=== PATIENT | female | born 1935 | race Caucasian/White ===

== ENCOUNTER 2016-08-23 11:41 | Inpatient (IN) | payer MEDICARE, MEDICAID ==
--- NOTE | 2016-08-23 12:21 | ER Document Report ---
ED Medical Screen (RME) - General Stated Complaint: SHORTNESS OF BREATH Notes: was dx with PNA 14 days ago return today c/o SOB and productive cough, admits to hot flashes and chills with sweating COPD on 2 L continuous kindey ca on chemo HD Tuesday, and Tuesday TRAVEL OUTSIDE OF THE [place] IN LAST 30 DAYS: No - Related Data Allergies/Adverse Reactions: morphine Allergy (Intermediate, Verified 08/23/16 12:19) Abnormal behavior Iodinated Contrast Media - Oral and [IV Dye, Iodine Containing] Allergy ( Verified 08/23/16 12:19) iodine [Iodine] Allergy (Verified 08/23/16 12:19) Past Medical History - Past Medical History Cardiac Medical History: Reports: Hx Atrial Fibrillation, Hx Congestive Heart Failure, Hx Heart Attack, Hx Hypercholesterolemia, Hx Hypertension Denies: Hx Coronary Artery Disease Pulmonary Medical History: Reports: Hx Asthma, Hx COPD - O2 use 2 LNC Denies: Hx Bronchitis, Hx Pneumonia Neurological Medical History: Denies: Hx Cerebrovascular Accident, Hx Seizures Endocrine Medical History: Reports: Hx Diabetes Mellitus Type 2 Renal/ Medical History: Reports: Hx End Stage Renal Disease, Hx Renal Insufficiency Musculoskeltal Medical History: Reports Hx Arthritis Psychiatric Medical History: Denies: Hx Depression Past Surgical History: Reports: Hx Cardiac Surgery - pacemaker, Hx Hysterectomy , Hx Pacemaker - Immunizations Hx Diphtheria, Pertussis, Tetanus Vaccination: Yes Physical Exam - Vital signs Vitals: Temp Pulse Resp BP Pulse Ox 98.5 F 98 24 H 149/50 H 94 08/23/16 12:10 08/23/16 12:10 08/23/16 12:10 08/23/16 12:10 08/23/16 12:10 Course - Vital Signs Vital signs: Temp Pulse Resp BP Pulse Ox 98.5 F 98 24 H 149/50 H 94 08/23/16 12:10 08/23/16 12:10 08/23/16 12:10 08/23/16 12:10 08/23/16 12:10
[2016-08-23] MEDS ORDERED: IPRATROPIUM BROMIDE 0.02% NEB 0.5 MG/2.5 ML AMPUL NEB PRN (12:23)
[2016-08-23] MEDS ORDERED: IPRATROPIUM/ALBUTEROL 0.5-2.5 MG/3 ML AMPUL NEB ONE ×3 (13:59)
[2016-08-23] MEDS ORDERED: METHYLPREDNISOLONE INJ 125 MG/2 ML SDV IV ONE (13:59)
[2016-08-23] MEDS ORDERED: LEVOFLOXACIN 750 MG/D5W RTU 150 ML IV ONE (13:59)
--- NOTE | 2016-08-23 13:59 | ER Document Report ---
ED General - General Chief Complaint: Congestion Stated Complaint: SHORTNESS OF BREATH Mode of Arrival: Ambulatory Information source: Patient Notes: 81 yr ild female with hx of copd , diagnosed with pneumonia 2 weeks ago on doxy presents with worsening sob, produtive coough and difficult ambulating TRAVEL OUTSIDE OF THE [place] IN LAST 30 DAYS: No - HPI Onset: Other - 2 week duration Onset/Duration: Persistent Quality of pain: No pain Severity: Mild Pain Level: 1 Associated symptoms: Productive cough, Fever, Shortness of breath Exacerbated by: Denies Relieved by: Denies Similar symptoms previously: Yes Recently seen / treated by doctor: Yes - Related Data Allergies/Adverse Reactions: morphine Allergy (Intermediate, Verified 08/23/16 12:19) Abnormal behavior Iodinated Contrast Media - Oral and [IV Dye, Iodine Containing] Allergy ( Verified 08/23/16 12:19) iodine [Iodine] Allergy (Verified 08/23/16 12:19) Past Medical History - Social History Smoking Status: Unknown if Ever Smoked Cigarette use (# per day): No Chew tobacco use (# tins/day): No Smoking Education Provided: No Frequency of alcohol use: None Drug Abuse: None Family History: Reviewed & Not Pertinent Patient has suicidal ideation: No Patient has homicidal ideation: No - Past Medical History Cardiac Medical History: Reports: Hx Atrial Fibrillation, Hx Congestive Heart Failure, Hx Heart Attack, Hx Hypercholesterolemia, Hx Hypertension Denies: Hx Coronary Artery Disease Pulmonary Medical History: Reports: Hx Asthma, Hx COPD - O2 use 2 LNC Denies: Hx Bronchitis, Hx Pneumonia Neurological Medical History: Denies: Hx Cerebrovascular Accident, Hx Seizures Endocrine Medical History: Reports: Hx Diabetes Mellitus Type 2 Renal/ Medical History: Reports: Hx End Stage Renal Disease, Hx Renal Insufficiency. Denies: Hx Peritoneal Dialysis Musculoskeltal Medical History: Reports Hx Arthritis Psychiatric Medical History: Denies: Hx Depression Past Surgical History: Reports: Hx Cardiac Surgery - pacemaker, Hx Hysterectomy , Hx Pacemaker - Immunizations Hx Diphtheria, Pertussis, Tetanus Vaccination: Yes Hx Pneumococcal Vaccination: 08/08/11 Review of Systems - Review of Systems Notes: REVIEW OF SYSTEMS: CONSTITUTIONAL : Denies fever, chills, or sweats. Denies recent illness. EENT: Denies eye, ear, throat, or mouth pain or symptoms. Denies nasal or sinus congestion or discharge. Denies throat, tongue, or mouth swelling or difficulty swallowing. CARDIOVASCULAR: Denies chest pain. Denies palpitations or racing or irregular heart beat. Denies ankle edema. RESPIRATORY: Admits to shortness of breath only breathing GASTROINTESTINAL: Denies abdominal pain or distention. Denies nausea, vomiting , or diarrhea. Denies blood in vomitus, stools, or per rectum. Denies black, tarry stools. Denies constipation. GENITOURINARY: Denies difficulty urinating, painful urination, burning, frequency, blood in urine, or discharge. FEMALE GENITOURINARY: Denies vaginal bleeding, heavy or abnormal periods, irregular periods. Denies vaginal discharge or odor. MUSCULOSKELETAL: Denies back or neck pain or stiffness. Denies joint pain or swelling. SKIN: Denies rash, lesions or sores. HEMATOLOGIC : Denies easy bruising or bleeding. LYMPHATIC: Denies swollen, enlarged glands. NEUROLOGICAL: Denies confusion or altered mental status. Denies passing out or loss of consciousness. Denies dizziness or lightheadedness. Denies headache. Denies weakness or paralysis or loss of use of either side. Denies problems with gait or speech. Denies sensory loss, numbness, or tingling. Denies seizures. PSYCHIATRIC: Denies anxiety or stress. Denies depression, suicidal ideation, or homicidal ideation. ALL OTHER SYSTEMS REVIEWED AND NEGATIVE. Dictation was performed using [employer] English voice recognition software PHYSICAL EXAMINATION: GENERAL: Well-appearing, well-nourished and in no acute distress. HEAD: Atraumatic, normocephalic. EYES: Pupils equal round and reactive to light, extraocular movements intact, conjunctiva are normal. ENT: Nares patent, oropharynx clear without exudates. Moist mucous membranes. NECK: Normal range of motion, supple without lymphadenopathy LUNGS: Coarse wheezing all throughout rhonchorous HEART: Regular rate and rhythm without murmurs ABDOMEN: Soft, nontender, nondistended abdomen. No guarding, no rebound. No masses appreciated. Female : deferred Musculoskeletal: Normal range of motion, no pitting or edema. No cyanosis. NEUROLOGICAL: Cranial nerves grossly intact. Normal speech, normal gait. Normal sensory, motor exams PSYCH: Normal mood, normal affect. SKIN: Warm, Dry, normal turgor, no rashes or lesions noted. Physical Exam - Vital signs Vitals: Temp Pulse Resp BP Pulse Ox 98.5 F 98 24 H 149/50 H 94 08/23/16 12:10 08/23/16 12:10 08/23/16 12:10 08/23/16 12:10 08/23/16 12:10 Course - Re-evaluation Re-evalutation: 08/23/16 13:58 Lab work imaging are pending, patient will be placed on monitor, I expect admission given extensiveness of her breathing 08/23/16 16:07 Chest x-ray is consistent with COPD exacerbation, patient will be admitted to hospital service due to hypoxemia respiratory distress - Vital Signs Vital signs: Temp Pulse Resp BP Pulse Ox 98.5 F 98 25 H 146/49 H 100 08/23/16 12:10 08/23/16 12:10 08/23/16 15:01 08/23/16 15:00 08/23/16 15:01 - Laboratory Result Diagrams: 08/23/16 13:45 08/23/16 13:45 Laboratory results interpreted by me: 08/23/16 08/23/16 13:45 13:45 RBC 3.68 L Hgb 10.8 L Hct 35.1 L MCHC 30.8 L RDW 14.9 H Seg Neutrophils % 79.3 H Lymphocytes % 10.1 L BUN 24 H Creatinine 1.98 H Est GFR ( Amer) 29 L Est GFR (Non-Af Amer) 24 L Creatine Kinase < 20 L Total Protein 5.8 L - Diagnostic Test Radiology reviewed: Image reviewed, Reports reviewed Discharge - Discharge Clinical Impression: COPD with exacerbation, Hypoxemia Condition: Stable Disposition: ADMITTED OBSERVATION Admitting Provider: Hospitalist Unit Admitted: Telemetry
[2016-08-23 14:11] LABS: VENOUS BLOOD BASE EXCESS 3.1 mmol/L; VENOUS BLOOD HCO3 30.1 mmol/L (20-32); VENOUS BLOOD PCO2 54.9 mmHg (35-63); VENOUS BLOOD PH 7.36 (7.30-7.42)
[2016-08-23 14:12] LABS: ABSOLUTE LYMPHOCYTES (AUTO) 0.6 10^3/uL (0.5-4.7); ABSOLUTE MONOCYTES (AUTO) 0.6 10^3/uL (0.1-1.4); BASOPHILS % (AUTO) 0.4 % (0-2); EOSINOPHILS % (AUTO) 0.3 % (0-6); HEMATOCRIT 35.1 % (36.0-47.0); HEMOGLOBIN 10.8 g/dL (12.0-15.5); HGB HCT DIFFERENCE -2.7; LYMPHOCYTES % (AUTO) 10.1 % (13-45); MEAN CORPUSCULAR HEMOGLOBIN 29.5 pg (27.0-33.4); MEAN CORPUSCULAR HGB CONC 30.8 g/dL (32.0-36.0); MEAN CORPUSCULAR VOLUME 96 fl (80-97); MONOCYTES % (AUTO) 9.9 % (3-13); RED BLOOD COUNT 3.68 10^6/uL (3.72-5.28); RED CELL DISTRIBUTION WIDTH 14.9 % (11.5-14.0); SEGMENTED NEUTROPHILS % (AUTO) 79.3 % (42-78); WHITE BLOOD COUNT 6.3 10^3/uL (4.0-10.5)
[2016-08-23 14:24] LABS: ALANINE AMINOTRANSFERASE 26 U/L (9-52); ALBUMIN 3.5 g/dL (3.5-5.0); ALKALINE PHOSPHATASE 108 U/L (38-126); ANION GAP 13 (5-19); ASPARTATE AMINO TRANSFERASE 30 U/L (14-36); BILIRUBIN,TOTAL 0.4 mg/dL (0.2-1.3); BLOOD UREA NITROGEN 24 mg/dL (7-20); CALCIUM 9.2 mg/dL (8.4-10.2); CARBON DIOXIDE 27 mmol/L (22-30); CHLORIDE 100 mmol/L (98-107); CREATININE RESULT 1.98 mg/dL (0.52-1.25); GLUCOSE 103 mg/dL (75-110); POTASSIUM 4.3 mmol/L (3.6-5.0); SODIUM 140.1 mmol/L (137-145); TOTAL PROTEIN 5.8 g/dL (6.3-8.2)
[2016-08-23 14:27] LABS: CREATINE KINASE < 20 U/L (30-135)
[2016-08-23 14:36] LABS: TROPONIN I 0.012 ng/mL
[2016-08-23 14:37] LABS: CREATINE KINASE MB < 0.22 ng/mL (<4.55)
[2016-08-23] MEDS ORDERED: ACETAMINOPHEN 325 MG TABLET PO PRN (16:39)
[2016-08-23] MEDS ORDERED: LEVALBUTEROL HCL NEB 1.25 MG/3 ML AMPUL NEB PRN (16:39)
[2016-08-23] MEDS ORDERED: ONDANSETRON HCL INJ/PF 4 MG/2 ML SDV IV PRN (16:48)
--- NOTE | 2016-08-23 17:11 | PDOC H&P ---
History of Present Illness Admission Date/PCP: BILL TRACY MD Patient complains of: Shortness of breath and wheezing History of Present Illness: KATHERINE RAWLS is a 81 year old female, with COPD, on home oxygen at 2 L nasal cannula, diabetes mellitus and hypertension, renal cell carcinoma, last chemotherapy was 3 days ago came to the emergency room because of one day duration of shortness of breath and wheezing with associated cough with slightly greenish phlegm, runny nose, watery eyes, and sneezing. The patient completed 10 days of oral antibiotic for a diagnosis of pneumonia 2 weeks ago. She has shortness of breath at that time but is tolerable. She likewise had some fever. Her symptoms improve and resolve after antibiotic intake and completed it 3-4 days ago. Today the above symptoms recur. She was given steroids and nebulizers in the emergency room and her breathing improved however she desaturation to 86 on ambulation even wearing oxygen at 2 L nasal cannula according to the emergency room physician. The patient was then referred for admission. , Past Medical History Past Medical History: Medication reconciliation pending verification from the patient's pharmacist. Cardiac Medical History: Reports: Atrial Fibrillation, Congestive Heart Failure , Myocardial Infarction, Hyperlipidema, Hypertension Denies: Coronary Artery Disease Pulmonary Medical History: Reports: Asthma, Chronic Obstructive Pulmonary Disease (COPD) - O2 use 2 LNC Denies: Bronchitis, Pneumonia Neurological Medical History: Denies: Seizures Endocrine Medical History: Reports: Diabetes Mellitus Type 2 Renal/ Medical History: Reports: End Stage Renal Disease - On hemodialysis on Tuesday and Tuesday Musculoskeltal Medical History: Reports: Arthritis Psychiatric Medical History: Denies: Depression Hematology: Denies: Anemia Past Surgical History Past Surgical History: Reports: Hysterectomy, Pacemaker, Vascular Surgery - AV grafting Social History Information Source: Patient Smoking Status: Former Smoker Frequency of Alcohol Use: None Hx Recreational Drug Use: No Drugs: None Hx Prescription Drug Abuse: No Family History Family History: DM, Hypertension Parental Family History Reviewed: Yes Children Family History Reviewed: Yes Sibling(s) Family History Reviewed.: Yes Medication/Allergy Home Medications: Esomeprazole Magnesium [Nexium] 40 mg PO DAILY 01/06/14 Ropinirole HCl 1 mg PO DAILY 01/06/14 Melatonin/Pyridoxine HCl (B6) [Melatonin 1 mg Tablet] 1 each PO QHS 08/10/15 Nitroglycerin [Nitrostat] 1 tab SL Q5MP PRN 02/14/16 Atorvastatin Calcium [Lipitor 40 mg Tablet] 40 mg PO DAILY #30 tablet 03/01/16 Diltiazem HCl [Cardizem Cd 180 mg Capsule] 180 mg PO DAILY #30 capsule.cr Fluticasone/Salmeterol [Advair 250-50 Diskus 14 Dose/Diskus] 1 inh IH Q12 #1 inhaler 03/01/16 Folic Acid/Vitamin B Comp W-C [Nephrocaps Multiple Vitamin Capsule] 1 cap PO ACSUPPER #30 capsule 03/01/16 Ipratropium/Albuterol Sulfate [Combivent Respimat 4 gm Mdi] 1 puff IH Q6HP PRN # 1 aer.w.adap 03/01/16 Latanoprost [Xalatan 0.005% Oph Soln 2.5 ml] 1 drop OU QHS #1 bottle 03/01/16 Montelukast Sodium [Singulair 10 mg Tablet] 10 mg PO DAILY #30 tablet 03/01/16 Levothyroxine Sodium [Synthroid 0.025 mg Tablet] 50 mcg PO DAILY 03/23/16 Metoprolol Tartrate [Lopressor 50 mg Tablet] 1 tab PO DAILY 03/23/16 Sennosides [Senna] 1 tab PO QHS 03/23/16 Oxycodone HCl/Acetaminophen [Percocet 5-325 mg Tablet] 1 tab PO ASDIR PRN #15 tablet 03/29/16 Furosemide [Lasix 80 mg Tablet] 80 mg PO BID 06/07/16 Potassium Bicarbonate/Cit AC [Potassium 25 Meq Tab Eff] 20 meq PO DAILY Allergies/Adverse Reactions: morphine Allergy (Intermediate, Verified 08/23/16 12:19) Abnormal behavior Iodinated Contrast Media - Oral and [IV Dye, Iodine Containing] Allergy ( Verified 08/23/16 12:19) iodine [Iodine] Allergy (Verified 08/23/16 12:19) Review of Systems Constitutional: PRESENT: weakness - Generalized. ABSENT: chills, fever(s), headache(s), night sweats, weight gain Eyes: ABSENT: visual disturbances Ears: ABSENT: hearing changes Nose, Mouth, and Throat: ABSENT: mouth pain, sore throat, vertigo Cardiovascular: PRESENT: dyspnea on exertion. ABSENT: chest pain, edema, orthropnea, palpitations Respiratory: PRESENT: cough, dyspnea, sputum - Light green. ABSENT: hemoptysis Gastrointestinal: ABSENT: abdominal pain, constipation, diarrhea, hematemesis, hematochezia, melena, nausea, vomiting Genitourinary: PRESENT: other - Still brings out scanty urine. ABSENT: dysuria , hematuria Musculoskeletal: ABSENT: back pain, joint swelling Integumentary: ABSENT: pruritus, rash, wounds Neurological: ABSENT: abnormal gait, abnormal speech, confusion, dizziness, focal weakness, syncope Psychiatric: ABSENT: anxiety, depression, homidical ideation, suicidal ideation Endocrine: ABSENT: cold intolerance, heat intolerance, polydipsia, polyuria Hematologic/Lymphatic: ABSENT: easy bleeding, easy bruising Physical Exam Vital Signs: Temp Pulse Resp BP Pulse Ox 98.5 F 98 25 H 146/49 H 100 08/23/16 12:10 08/23/16 12:10 08/23/16 15:01 08/23/16 15:00 08/23/16 15:01 Intake & Output 08/22/16 08/23/16 08/24/16 06:59 06:59 06:59 Weight 78 kg General appearance: PRESENT: no acute distress, cooperative, obese Head exam: PRESENT: atraumatic, normocephalic Eye exam: PRESENT: conjunctiva pale, EOMI, PERRLA - But sluggish Ear exam: PRESENT: normal external ear exam. ABSENT: drainage Mouth exam: PRESENT: moist, neck supple, tongue midline Throat exam: PRESENT: other - No thrush. ABSENT: post pharyngeal erythema, tonsillar erythema, tonsillar exudate Neck exam: ABSENT: carotid bruit, JVD, lymphadenopathy, thyromegaly Respiratory exam: PRESENT: rhonchi - Scattered bilateral, wheezes - Mild expiratory bilateral. ABSENT: rales Cardiovascular exam: PRESENT: RRR, +S1, +S2. ABSENT: diastolic murmur, rubs, systolic murmur Pulses: PRESENT: normal dorsalis pedis pul Vascular exam: PRESENT: normal capillary refill GI/Abdominal exam: PRESENT: normal bowel sounds, soft. ABSENT: distended, guarding, mass, organolmegaly, rebound, tenderness Rectal exam: PRESENT: deferred Extremities exam: PRESENT: full ROM. ABSENT: calf tenderness, clubbing, pedal edema Neurological exam: PRESENT: alert, awake, oriented to person, oriented to place , oriented to time, oriented to situation Psychiatric exam: PRESENT: appropriate affect, normal mood. ABSENT: homicidal ideation, suicidal ideation Skin exam: PRESENT: dry, intact, warm. ABSENT: cyanosis Results Laboratory Results: 08/23/16 13:45 08/23/16 13:45 08/23/16 08/23/16 08/23/16 13:45 13:45 13:45 WBC 6.3 RBC 3.68 L Hgb 10.8 L Hct 35.1 L MCV 96 MCH 29.5 MCHC 30.8 L RDW 14.9 H Plt Count 208 Seg Neutrophils % 79.3 H Lymphocytes % 10.1 L Monocytes % 9.9 Eosinophils % 0.3 Basophils % 0.4 Absolute Neutrophils 5.0 Absolute Lymphocytes 0.6 Absolute Monocytes 0.6 Absolute Eosinophils 0.0 Absolute Basophils 0.0 VBG pH 7.36 VBG pCO2 54.9 VBG HCO3 30.1 VBG Base Excess 3.1 Sodium 140.1 Potassium 4.3 Chloride 100 Carbon Dioxide 27 Anion Gap 13 BUN 24 H Creatinine 1.98 H Est GFR ( Amer) 29 L Est GFR (Non-Af Amer) 24 L Glucose 103 Calcium 9.2 Total Bilirubin 0.4 AST 30 ALT 26 Alkaline Phosphatase 108 Total Protein 5.8 L Albumin 3.5 08/23/16 08/23/16 13:45 13:45 Creatine Kinase < 20 L CK-MB (CK-2) < 0.22 Troponin I 0.012 Impressions: Chest X-Ray 08/23/16 12:21 IMPRESSION: 1. Stable 2 cm left lower lobe mass. 2. No evidence of acute pneumonia. 3. Chronic parenchymal changes as described Assessment & Plan - Diagnosis (1) COPD with exacerbation Is this a current diagnosis for this admission?: Yes (2) Chronic hypoxemic respiratory failure Is this a current diagnosis for this admission?: Yes (3) Coronary artery disease Qualifiers: Coronary Disease-Associated Artery/Lesion type: [place] artery [place] vs. transplanted heart: [place] heart Associated angina: without angina Qualified Code(s): I25.10 - Atherosclerotic heart disease of [place] coronary artery without angina pectoris Is this a current diagnosis for this admission?: Yes (4) ESRD on hemodialysis Is this a current diagnosis for this admission?: Yes (5) Hypothyroidism Qualifiers: Hypothyroidism type: unspecified Qualified Code(s): E03.9 - Hypothyroidism, unspecified Is this a current diagnosis for this admission?: Yes (6) Renal cell carcinoma Qualifiers: Laterality: unspecified laterality Qualified Code(s): C64.9 - Malignant neoplasm of unspecified kidney, except renal pelvis Is this a current diagnosis for this admission?: Yes (7) Essential hypertension Is this a current diagnosis for this admission?: Yes (8) Diabetes mellitus Qualifiers: Diabetes mellitus type: type 2 Diabetes mellitus complication status: with unspecified complications Diabetes mellitus halfway insulin use: without halfway use Qualified Code(s): E11.8 - Type 2 diabetes mellitus with unspecified complications Is this a current diagnosis for this admission?: Yes (9) Anemia of chronic disease Is this a current diagnosis for this admission?: Yes (10) History of atrial fibrillation Is this a current diagnosis for this admission?: Yes - Time Time Spent: 50 to 70 Minutes - Inpatient Certification Based on my medical assessment, after consideration of the patient's comorbidities, presenting symptoms, or acuity I expect that the services needed warrant INPATIENT care.: Yes I certify that my determination is in accordance with my understanding of Medicare's requirements for reasonable and necessary INPATIENT services [42 CFR 412.3e].: Yes Medical Necessity: Significant Comorbidiites Make Outpatient Treatment Too Risky , Need Close Monitoring Due to Risk of Patient Decompensation, Need For Continuous Telemetry Monitoring, Risk of Complication if Not Cared For in Hospital Post Hospital Care: D/C [employer] Administrator Documentation - Plan Summary Plan Summary: The patient will be admitted to telemetry. We will continue supplemental oxygen. Begin intravenous steroids and [id number] nebulizers. I will gently hydrate the patient with normal saline for 2 L. We will culture the sputum. Obtain CT scan of the chest to check for any infiltrates. We will consult nephrology for hemodialysis. DVT prophylaxis with heparin will be placed. Further testing depends on the initial evaluation as outlined above.
--- NOTE | 2016-08-23 18:06 | EKG REPORT ---
SEVERITY:- ABNORMAL ECG - SINUS OR ECTOPIC ATRIAL RHYTHM NONSPECIFIC INTRAVENTRICULAR CONDUCTION DELAY : Confirmed by: Alejandro Storey MD 23-Aug-2016 18:05:22
[2016-08-23] MEDS: METHYLPREDNISOLONE INJ 125 MG/2 ML SDV IV SCH (18:39)
[2016-08-23] MEDS: LEVALBUTEROL HCL NEB 1.25 MG/3 ML AMPUL NEB SCH ×2 (21:34→23:49)
[2016-08-23] MEDS: IPRATROPIUM BROMIDE 0.02% NEB 0.5 MG/2.5 ML AMPUL NEB SCH ×2 (21:35→23:48)
[2016-08-23] MEDS ORDERED: ROPINIROLE HCL 1 MG TABLET PO ONE (22:45)
[2016-08-23] MEDS ORDERED: ROPINIROLE HCL 1 MG TABLET ONE (23:01)
[2016-08-23] MEDS: ATORVASTATIN CALCIUM 40 MG TABLET PO SCH (23:18)
[2016-08-23] MEDS: OXYCODONE HCL IR 5 MG TABLET PO PRN (23:18)
[2016-08-23] MEDS: HEPARIN SOD (PORCINE) 5,000 UNIT/ML 1 ML SYRINGE SUBCUT SCH (23:19)
[2016-08-23] MEDS: LATANOPROST 0.005% OPH SOLN 2.5 ML OU SCH (23:19)
[2016-08-23] MEDS: DOCUSATE SODIUM 100 MG CAPSULE PO SCH (23:19)
[2016-08-24] MEDS: METHYLPREDNISOLONE INJ 125 MG/2 ML SDV IV SCH ×4 (02:40→17:55)
[2016-08-24] MEDS: IPRATROPIUM BROMIDE 0.02% NEB 0.5 MG/2.5 ML AMPUL NEB SCH ×6 (03:56→23:21)
[2016-08-24] MEDS: LEVALBUTEROL HCL NEB 1.25 MG/3 ML AMPUL NEB SCH ×6 (03:56→23:22)
[2016-08-24] MEDS: LANSOPRAZOLE 30 MG TAB.RAP.DR PO SCH (05:52)
[2016-08-24] MEDS: HEPARIN SOD (PORCINE) 5,000 UNIT/ML 1 ML SYRINGE SUBCUT SCH ×3 (05:52→22:06)
[2016-08-24] MEDS: LEVOTHYROXINE SODIUM 0.05 MG TABLET PO SCH (05:52)
[2016-08-24] MEDS: NORMAL SALINE 1000 ML 1,000 ML IV PRN (05:54)
[2016-08-24 06:54] LABS: ABSOLUTE LYMPHOCYTES (AUTO) 0.3 10^3/uL (0.5-4.7); ABSOLUTE MONOCYTES (AUTO) 0.2 10^3/uL (0.1-1.4); ABSOLUTE NEUT (AUTO) 3.6 10^3/uL (1.7-8.2); BASOPHILS % (AUTO) 0.1 % (0-2); HEMATOCRIT 32.4 % (36.0-47.0); HEMOGLOBIN 10.2 g/dL (12.0-15.5); HGB HCT DIFFERENCE -1.8; LYMPHOCYTES % (AUTO) 8.3 % (13-45); MEAN CORPUSCULAR HGB CONC 31.6 g/dL (32.0-36.0); MEAN CORPUSCULAR VOLUME 95 fl (80-97); RED BLOOD COUNT 3.41 10^6/uL (3.72-5.28); SEGMENTED NEUTROPHILS % (AUTO) 87.6 % (42-78); WHITE BLOOD COUNT 4.1 10^3/uL (4.0-10.5)
[2016-08-24] MEDS: OXYCODONE HCL IR 5 MG TABLET PO PRN ×3 (07:01→22:04)
[2016-08-24 07:13] LABS: ANION GAP 12 (5-19); BLOOD UREA NITROGEN 31 mg/dL (7-20); CALCIUM 9.6 mg/dL (8.4-10.2); CARBON DIOXIDE 27 mmol/L (22-30); CHLORIDE 100 mmol/L (98-107); CREATININE RESULT 2.16 mg/dL (0.52-1.25); GLUCOSE 148 mg/dL (75-110); POTASSIUM 4.4 mmol/L (3.6-5.0); SODIUM 139.2 mmol/L (137-145)
[2016-08-24] MEDS: DILTIAZEM HCL 180 MG CAPSULE.CR PO SCH (09:31)
[2016-08-24] MEDS: DOCUSATE SODIUM 100 MG CAPSULE PO SCH ×2 (09:32→17:55)
[2016-08-24] MEDS ORDERED: ROPINIROLE HCL 1 MG TABLET PO SCH ×3 (10:00→18:00)
[2016-08-24] MEDS ORDERED: METOPROLOL TARTRATE 50 MG TABLET PO SCH (10:00)
--- NOTE | 2016-08-24 12:25 | Physician Advisory Note ---
Physician Advisor ProgressNote .: Pursuant to the plan for [facility], I have reviewed the medical record for this patient. Physician Advisor Statement: Excellent documentation of Chronic Hypoxemia Resp Failure requiring 2L O2 at baseline. Possible documentation opportunities if attending agrees: 1. "Anemia of Chronic Kidney Dz" 2. "Acute Hypoxemic Respiratory Failure with respiratory distress in ED with hypoxemia on her usual 2L O2" [The hypoxemia on usual O2 level was nicely documented in H&P, just need the associated increased work of breathing/respiratory distress documented by attending as well (if attending agrees it was present) to support this dx. - ED dr documented "I expect admission given extensiveness of her breathing", & "Pt will be admitted to hospital service due to hypoxemia resp distress." But attending must re-state ED provider info for it to "count" for the coding world - regardless of what the practicing physician thinks of that requirement.] 3. ? - "Her difficulty ambulating prior to arrival was due to worsening SOB with ambulation" - or was it due to some other cause such as general debility/ weakness? 4. "chronic ___ CHF" [diastolic?] - ECHO 01/2016 said EF 50-55%, borderline conc LVH, diast fn couldn't e adeq.ly assessed due to Afib. Mild pulm HTN, mild dil LA & RA, mild MR, tr AR/TR, RV hypertrophied. 5. type of Afib - ?"Persistent Afib" vs "Paroxysmal Afib" As always, if concerned about any unstable VS or abnormal labs, please comment on them & note what doing about them, & please document each day the potential clinical problems you are concerned could occur if pt not kept in hospital for tx at this time. 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 diastolic] CHF, ___ type Afib, COPD, chr resp failure requiring 2L O2 at baseline, recent PNA 2 wks before that responded to abx that ended 3-4 days before - presented 1/16 PM to ED w/increasing SOB, congestion, productive cough, difficulty ambulating (+) HR 98, R24, BP 149/50, Hgb 10.8, BUN 24, Cr 1.98. ED gave steroids, nebs, & breathing improved but she still desaturated to 86% sat on her usual 2L O2 with ambulation, & ED dr documented respiratory distress being present. Attending ordered O2, IV steroids, around the clock nebs, gentle IVF hydration ( must be careful given underlying CHF), sputum cx, CT scan to check for infiltrates, & of course nephrology consult for continued HD. Status: This pt has multiple very concerning chronic co-morbidities that put her at much higher risk for decompensation than the typical outpatient, with multi- system organ impairment at baseline & current ongoing chemotherapy for renal cell carcinoma that appears to be metastatic to the lungs. Now she has shown worsening in her oxygenation ability, which can further compromise all her organs, including these very organ systems that are already at a distinct disadvantage - & is even more an issue given her decreased number of red blood cells available to carry that decreased amount of O2 around her body. She is at much higher than usual risk for serious infections given her diabetes & current chemotherapy treatment, and this risk is increased by the necessary steroids for bronchospasm. Attending has ordered sputum culture, just in case of new bacterial infection is developing on top of the COPD exacerbation. Last PM, she had tachypnea as high as 35. She has had continued recurrent tachypnea through this AM (RR 24), & persistent tachycardia above 100 that continues. This AM at 01:26, the nurse documented pt was using accessory muscles to breathe . She is not hemodynamically stable, & she is not clinically safe for d/c, & she is at very high risk for further morbidity & mortality. Tx in inpatient hospital setting medically reasonable & necessary to protect pt' s health, safety, & medical condition. Appropriate for Inpatient status. Thanks for your help with documentation accuracy/specificity improvement! Shanell Alexandre MD [facility] Physician Advisor, Fellow of Hospital Medicine
--- NOTE | 2016-08-24 15:01 | PDOC PROGRESS REPORT ---
Subjective Progress Note for:: 08/24/16 Subjective:: Complains of shortness of breath. Physical Exam Vital Signs: Temp Pulse Resp BP Pulse Ox 98.4 F 86 18 144/43 H 97 08/24/16 10:24 08/24/16 14:00 08/24/16 11:43 08/24/16 10:24 08/24/16 11:43 Intake & Output 08/23/16 08/24/16 08/25/16 06:59 06:59 06:59 Intake Total 20 Balance 20 Weight 75.3 kg General appearance: PRESENT: no acute distress Eye exam: PRESENT: conjunctiva pink Mouth exam: PRESENT: moist, tongue midline Neck exam: ABSENT: carotid bruit, JVD, lymphadenopathy, thyromegaly Respiratory exam: PRESENT: wheezes - Wheezing present in the left hemithorax. GI/Abdominal exam: PRESENT: normal bowel sounds, soft. ABSENT: distended, guarding, mass, organolmegaly, rebound, tenderness Extremities exam: ABSENT: calf tenderness, clubbing, pedal edema Neurological exam: PRESENT: alert, awake, oriented to person, oriented to place , oriented to time Psychiatric exam: PRESENT: appropriate affect Skin exam: PRESENT: dry, intact, warm. ABSENT: cyanosis, rash Results Laboratory Results: 08/24/16 06:40 08/24/16 06:40 08/24/16 08/24/16 06:40 06:40 WBC 4.1 RBC 3.41 L Hgb 10.2 L Hct 32.4 L MCV 95 MCH 30.0 MCHC 31.6 L RDW 15.0 H Plt Count 193 Seg Neutrophils % 87.6 H Lymphocytes % 8.3 L Monocytes % 4.0 Eosinophils % 0.0 Basophils % 0.1 Absolute Neutrophils 3.6 Absolute Lymphocytes 0.3 L Absolute Monocytes 0.2 Absolute Eosinophils 0.0 Absolute Basophils 0.0 Sodium 139.2 Potassium 4.4 Chloride 100 Carbon Dioxide 27 Anion Gap 12 BUN 31 H Creatinine 2.16 H Est GFR ( Amer) 27 L Est GFR (Non-Af Amer) 22 L Glucose 148 H Calcium 9.6 Impressions: Chest CT 08/23/16 00:00 IMPRESSION: The previously described multiple bilateral predominately subcentimeter pulmonary and pleural based nodules are again identified and appear essentially unchanged. No acute consolidations or pleural effusions are identified. Previously described chronic appearing changes are again identified. Other findings as noted above Chest X-Ray 08/23/16 12:21 IMPRESSION: 1. Stable 2 cm left lower lobe mass. 2. No evidence of acute pneumonia. 3. Chronic parenchymal changes as described Assessment & Plan - Diagnosis (1) Chronic hypoxemic respiratory failure Is this a current diagnosis for this admission?: YesPlan: Patient has acute on chronic hypoxic respiratory failure. This is secondary to acute COPD exacerbation. We'll continue with the IV steroids. (2) COPD with exacerbation Is this a current diagnosis for this admission?: YesPlan: Patient has an acute exacerbation of COPD. We'll continue with the IV steroids , nebulizers. (3) Anemia of chronic disease Is this a current diagnosis for this admission?: YesPlan: Patient has anemia of chronic disease most likely secondary to chronic renal failure stage V. (4) Diabetes mellitus Qualifiers: Diabetes mellitus type: type 2 Diabetes mellitus complication status: with unspecified complications Diabetes mellitus intermodal customer service insulin use: without intermodal customer service use Qualified Code(s): E11.8 - Type 2 diabetes mellitus with unspecified complications; Z79.4 - [facility] (current) use of insulin Is this a current diagnosis for this admission?: YesPlan: Blood sugars are under adequate control. (5) Essential hypertension Is this a current diagnosis for this admission?: YesPlan: Continue Lopressor and diltiazem. (6) History of atrial fibrillation Is this a current diagnosis for this admission?: YesPlan: Patient is in a regular rhythm today. (7) Hypothyroidism Qualifiers: Hypothyroidism type: unspecified Qualified Code(s): E03.9 - Hypothyroidism, unspecified Is this a current diagnosis for this admission?: YesPlan: Continue Synthroid (8) Coronary artery disease Qualifiers: Coronary Disease-Associated Artery/Lesion type: [place] artery [place] vs. transplanted heart: [place] heart Associated angina: without angina Qualified Code(s): I25.10 - Atherosclerotic heart disease of [place] coronary artery without angina pectoris Is this a current diagnosis for this admission?: YesPlan: Denies any chest pain. - Time Time Spent with patient: 25-34 minutes - Inpatient Certification Medical Necessity: Need for Nebulizer Therapy and Monitoring of Response
[2016-08-24] MEDS: FOLIC ACID/VITAMIN B COMP W-C CAPSULE PO SCH (15:26)
--- NOTE | 2016-08-24 19:34 | PDOC CONSULTATION ---
Consultation Consult Date: 08/24/16 Attending physician:: RICKIE CRAIG Consult reason:: I was asked by Dr. Craig to see this patient to supervise dialysis while in the hospital. History of Present Illness Admission Date/PCP: 08/23/16 16:39 SREEDHAR NIEVES MD History of Present Illness: KATHERINE RAWLS is a 81 year old female, with COPD, on home oxygen at 2 L nasal cannula, diabetes mellitus and hypertension, metastatic renal cell carcinoma, last chemotherapy was 3 days ago and end-stage renal disease on maintenance hemodialysis came to the emergency room because of one day duration of shortness of breath and wheezing with associated cough with slightly greenish phlegm, runny nose, watery eyes, and sneezing. The patient completed 10 days of oral antibiotic for a diagnosis of pneumonia 2 weeks ago. She has shortness of breath at that time but is tolerable. She likewise had some fever. Her symptoms improve and resolve after antibiotic intake and completed it 3-4 days ago. Today the above symptoms recur. She was given steroids and nebulizers in the emergency room and her breathing improved however she desaturation to 86 on ambulation even wearing oxygen at 2 L nasal cannula according to the emergency room physician. The patient was then referred for admission. Patient has been maintenance hemodialysis since February 2016. She has done well surprisingly despite her conditions. Her usual dialysis days are Tuesdays, and Saturdays. Her last dialysis was last Tuesday. During that night after her on dialysis on Tuesday she started feeling shortness short of breath. Currently she said she feels slightly better but not at baseline yet. She said she is coughing but unable to expectorate any phlegm. She is afebrile. She doesn't have any chest pains, leg swelling, nausea, vomiting, nor abdominal pain. She complains of restless legs and she thinks that the Requip 0.5 mg is not enough since she is usually maintained on 1 mg daily. She tells me that she is making more urine output while she is here in the hospital than usual. Urine output is not quantified. , Past Medical History Cardiac Medical History: Reports: Atrial Fibrillation, Hyperlipidemia, Hypertension-primary, Myocardial Infarction Pulmonary Medical History: Reports: Asthma, Chronic Obstructive Pulmonary Disease (COPD) - O2 use 2 LNC, Pneumonia EENT Medical History: Reports: Other - Glaucoma Endocrine Medical History: Reports: Diabetes Mellitus Type 2, Hypothyroidism Renal/ Medical History: Reports: End Stage Renal Disease - On hemodialysis on Tuesday and Tuesday, Hyperphosphatemia, Secondary Hyperparathyroidism Malignancy Medical History: Reports: Cervical Cancer, Renal (Kidney) Cancer - Metastatic stage IV on chemotherapy, Other - Papillary thyroid carcinoma GI Medical History: Reports: Gastroesophageal Reflux Disease, Hiatal Hernia Musculoskeltal Medical History: Reports: Arthritis, Other - Osteoporosis Infectious Medical History: Reports: Other - Shingles Hematology Medical History: Reports Anemia of Chronic Kidney Disease, Reports Iron Deficiency Anemia Past Surgical History Past Surgical History: Reports: Dialysis Access Surgery AVF, Hysterectomy, Pacemaker, Other - Radiation therapy in February 2012, bilateral cataract surgery Social History Information Source: Patient Lives with: Other - She lives with her grandson and his Smoking Status: Former Smoker Frequency of Alcohol Use: None Hx Recreational Drug Use: No Drugs: None Hx Prescription Drug Abuse: No Family History Family History: CVA - Mother, DM - Father, sister and brother, Malignancy - Brother Parental Family History Reviewed: Yes Children Family History Reviewed: NA Sibling(s) Family History Reviewed.: Yes Medication/Allergy Home Medications: Albuterol Sulfate [Albuterol Sulfate 2.5mg/3 mL] 2.5 mg IH [id number] PRN 08/23/16 Aspirin [Aspirin EC] 81 mg PO DAILY 08/23/16 Atorvastatin Calcium [Lipitor 10 mg Tablet] 10 mg PO QHS 08/23/16 Diltiazem HCl [Cardizem Cd 180 mg Capsule] 180 mg PO DAILY 08/23/16 Fluticasone/Salmeterol [Advair 250-50 Diskus 28 dose] 1 inh IH Q12 08/23/16 Furosemide [Lasix 40 mg Tablet] 40 mg PO ASDIR PRN 08/23/16 Glimepiride [Amaryl 1 mg Tablet] 1 mg PO QAM 08/23/16 Hydrocodone/Acetaminophen [[place] 5-325 Tablet] 1 each PO Q6H PRN 08/23/16 Latanoprost [Xalatan 0.005% Oph Soln 2.5 ml] 1 drop OU QHS 08/23/16 Levothyroxine Sodium [Synthroid 0.025 mg Tablet] 25 mcg PO DAILY 08/23/16 Montelukast Sodium [Singulair 10 mg Tablet] 10 mg PO QHS 08/23/16 Promethazine HCl [Phenergan 25 mg Tablet] 12.5 mg PO Q4HP PRN 08/23/16 Ropinirole HCl [Requip] 1 mg PO QPM 08/23/16 Allergies/Adverse Reactions: morphine Allergy (Intermediate, Verified 08/23/16 22:30) Abnormal behavior Iodinated Contrast Media - Oral and [IV Dye, Iodine Containing] Allergy ( Verified 08/23/16 12:19) iodine [Iodine] Allergy (Verified 08/23/16 12:19) Review of Systems All systems: reviewed and no additional remarkable complaints except as stated Review of Systems: Constitutional: ABSENT: chills, fatigue, fever(s), headache(s), weight gain, weight loss Eyes: ABSENT: visual disturbances Ears: ABSENT: hearing changes Cardiovascular: ABSENT: chest pain, edema, orthropnea, palpitations, admits this and insertion Respiratory: ABSENT: hemoptysis, admits cough and shortness of breath Gastrointestinal: ABSENT: abdominal pain, constipation, diarrhea, hematemesis, hematochezia, nausea, vomiting Genitourinary: ABSENT: dysuria, hematuria Musculoskeletal: ABSENT: joint swelling Integumentary: ABSENT: rash, wounds Neurological: ABSENT: abnormal gait, abnormal speech, confusion, dizziness, focal weakness, numbness, syncope Psychiatric: ABSENT: anxiety, depression Endocrine: ABSENT: cold intolerance, heat intolerance, polydipsia, polyuria Hematologic/Lymphatic: ABSENT: easy bleeding, easy bruising, lymphadenopathy Physical Exam Vital Signs: Temp Pulse Resp BP Pulse Ox 98.4 F 100 18 144/43 H 97 08/24/16 10:24 08/24/16 15:40 08/24/16 15:40 08/24/16 10:24 08/24/16 17:26 Intake & Output 08/23/16 08/24/16 08/25/16 06:59 06:59 06:59 Intake Total 20 530 Balance 20 530 Weight 75.3 kg Exam: General appearance: no acute distress, cooperative, well-developed, well- nourished Head exam: PRESENT: atraumatic, normocephalic Eye exam: PRESENT: Conjunctiva pale, EOMI, PERRLA. ABSENT: conjunctival injection, scleral icterus Mouth exam: PRESENT: moist, neck supple, tongue midline Neck exam: PRESENT: full ROM. ABSENT: carotid bruit, JVD, lymphadenopathy, thyromegaly Respiratory exam: PRESENT: Diminished to auscultation bilaterally. Mild occasional anterior wheezes ABSENT: rales, rhonchi, stridor Cardiovascular exam: PRESENT: RRR, +S1, +S2. ABSENT: systolic murmur Pulses: PRESENT: normal radial pulses, normal dorsalis pedis pulses GI/Abdominal exam: PRESENT: normal bowel sounds, soft. ABSENT: guarding, mass, tenderness Rectal exam: deferred Extremities exam: PRESENT: full ROM. ABSENT: calf tenderness, pedal edema Musculoskeletal: PRESENT: full ROM. ABSENT: deformity Neurological exam: PRESENT: alert, Awake, Oriented to person, Oriented to place , Oriented to time, reflexes normal, CN II-XII grossly intact. ABSENT: motor sensory deficit Psychiatric exam: PRESENT: appropriate affect, normal mood. ABSENT: homicidal ideation, suicidal ideation Skin exam: PRESENT: intact, dry, warm. ABSENT: rash Results Laboratory Results: 08/24/16 06:40 08/24/16 06:40 08/24/16 08/24/16 06:40 06:40 WBC 4.1 RBC 3.41 L Hgb 10.2 L Hct 32.4 L MCV 95 MCH 30.0 MCHC 31.6 L RDW 15.0 H Plt Count 193 Seg Neutrophils % 87.6 H Lymphocytes % 8.3 L Monocytes % 4.0 Eosinophils % 0.0 Basophils % 0.1 Absolute Neutrophils 3.6 Absolute Lymphocytes 0.3 L Absolute Monocytes 0.2 Absolute Eosinophils 0.0 Absolute Basophils 0.0 Sodium 139.2 Potassium 4.4 Chloride 100 Carbon Dioxide 27 Anion Gap 12 BUN 31 H Creatinine 2.16 H Est GFR ( Amer) 27 L Est GFR (Non-Af Amer) 22 L Glucose 148 H Calcium 9.6 Impressions: Chest CT 08/23/16 00:00 IMPRESSION: The previously described multiple bilateral predominately subcentimeter pulmonary and pleural based nodules are again identified and appear essentially unchanged. No acute consolidations or pleural effusions are identified. Previously described chronic appearing changes are again identified. Other findings as noted above Chest X-Ray 08/23/16 12:21 IMPRESSION: 1. Stable 2 cm left lower lobe mass. 2. No evidence of acute pneumonia. 3. Chronic parenchymal changes as described Assessment & Plan - Diagnosis (1) ESRD on hemodialysis Is this a current diagnosis for this admission?: YesPlan: We will do hemodialysis tomorrow. (2) COPD with exacerbation Is this a current diagnosis for this admission?: YesPlan: Continue current management by the hospitalist service. (3) Anemia of chronic disease Is this a current diagnosis for this admission?: YesPlan: Mild. We will give Procrit as needed. (4) Chronic hypoxemic respiratory failure Is this a current diagnosis for this admission?: YesPlan: Due to COPD. (5) Diabetes mellitus Qualifiers: Diabetes mellitus type: type 2 Diabetes mellitus complication status: with unspecified complications Diabetes mellitus detention insulin use: without intermodal dispatcher use Qualified Code(s): E11.8 - Type 2 diabetes mellitus with unspecified complications; Z79.4 - petroleum terminal plant operator (current) use of insulin Is this a current diagnosis for this admission?: YesPlan: Well-controlled (6) Essential hypertension Is this a current diagnosis for this admission?: YesPlan: Fairly controlled. (7) Renal cell carcinoma Qualifiers: Laterality: unspecified laterality Qualified Code(s): C64.9 - Malignant neoplasm of unspecified kidney, except renal pelvis Is this a current diagnosis for this admission?: YesPlan: With metastasis to the lungs. On chemotherapy under the supervision of Dr. Littlejohn. (8) Atrial fibrillation Qualifiers: Atrial fibrillation type: paroxysmal Qualified Code(s): I48.0 - Paroxysmal atrial fibrillation Is this a current diagnosis for this admission?: YesPlan: Increase metoprolol to 50 mg by mouth every 12 hours. (9) Restless legs syndrome (RLS) Is this a current diagnosis for this admission?: YesPlan: Increase her Requip to 1 mg by mouth every at bedtime. - Notes Notes: Thank you very much for this consultation. I will supervise dialysis for this patient while in the hospital. - Time Time Spent: 50 to 70 Minutes
[2016-08-24] MEDS: LATANOPROST 0.005% OPH SOLN 2.5 ML OU SCH (22:06)
[2016-08-24] MEDS: ATORVASTATIN CALCIUM 40 MG TABLET PO SCH (22:06)
[2016-08-24] MEDS: METOPROLOL TARTRATE 50 MG TABLET PO SCH (22:06)
[2016-08-25] MEDS: METHYLPREDNISOLONE INJ 125 MG/2 ML SDV IV SCH ×5 (01:15→23:18)
[2016-08-25] MEDS: IPRATROPIUM BROMIDE 0.02% NEB 0.5 MG/2.5 ML AMPUL NEB SCH ×5 (03:22→20:17)
[2016-08-25] MEDS: LEVALBUTEROL HCL NEB 1.25 MG/3 ML AMPUL NEB SCH ×5 (03:22→20:17)
[2016-08-25] MEDS: HEPARIN SOD (PORCINE) 5,000 UNIT/ML 1 ML SYRINGE SUBCUT SCH ×3 (06:10→21:35)
[2016-08-25] MEDS: LEVOTHYROXINE SODIUM 0.05 MG TABLET PO SCH (06:10)
[2016-08-25] MEDS: OXYCODONE HCL IR 5 MG TABLET PO PRN ×2 (06:10→18:25)
[2016-08-25] MEDS: LANSOPRAZOLE 30 MG TAB.RAP.DR PO SCH (06:10)
[2016-08-25] MEDS: NORMAL SALINE 1000 ML 1,000 ML IV PRN (06:10)
[2016-08-25 08:14] LABS: ABSOLUTE LYMPHOCYTES (AUTO) 0.5 10^3/uL (0.5-4.7); ABSOLUTE MONOCYTES (AUTO) 0.3 10^3/uL (0.1-1.4); ABSOLUTE NEUT (AUTO) 6.8 10^3/uL (1.7-8.2); HEMATOCRIT 32.1 % (36.0-47.0); HGB HCT DIFFERENCE -2.1; LYMPHOCYTES % (AUTO) 6.1 % (13-45); MEAN CORPUSCULAR HEMOGLOBIN 29.9 pg (27.0-33.4); MEAN CORPUSCULAR HGB CONC 31.1 g/dL (32.0-36.0); MEAN CORPUSCULAR VOLUME 96 fl (80-97); MONOCYTES % (AUTO) 3.4 % (3-13); RED BLOOD COUNT 3.34 10^6/uL (3.72-5.28); SEGMENTED NEUTROPHILS % (AUTO) 90.5 % (42-78); WHITE BLOOD COUNT 7.6 10^3/uL (4.0-10.5)
[2016-08-25 08:19] LABS: ANION GAP 14 (5-19); BLOOD UREA NITROGEN 42 mg/dL (7-20); CALCIUM 8.5 mg/dL (8.4-10.2); CARBON DIOXIDE 24 mmol/L (22-30); CHLORIDE 102 mmol/L (98-107); CREATININE RESULT 2.14 mg/dL (0.52-1.25); GLUCOSE 139 mg/dL (75-110); POTASSIUM 4.4 mmol/L (3.6-5.0); SODIUM 139.8 mmol/L (137-145)
[2016-08-25] MEDS: DOCUSATE SODIUM 100 MG CAPSULE PO SCH ×2 (09:55→17:46)
[2016-08-25] MEDS: METOPROLOL TARTRATE 50 MG TABLET PO SCH ×2 (09:57→21:34)
[2016-08-25] MEDS: DILTIAZEM HCL 180 MG CAPSULE.CR PO SCH (09:57)
--- NOTE | 2016-08-25 13:56 | PDOC PROGRESS REPORT ---
Subjective Progress Note for:: 08/25/16 Subjective:: Reports less wheezing today Physical Exam Vital Signs: Temp Pulse Resp BP Pulse Ox 98.4 F 87 20 144/50 H 99 08/25/16 08:35 08/25/16 08:35 08/25/16 08:35 08/25/16 08:35 08/25/16 08:35 Intake & Output 08/24/16 08/25/16 08/26/16 06:59 06:59 06:59 Intake Total 1934 Balance 1934 Weight 75.3 kg 76.3 kg General appearance: PRESENT: no acute distress Eye exam: PRESENT: conjunctiva pink. ABSENT: scleral icterus Ear exam: PRESENT: normal external ear exam Mouth exam: PRESENT: moist, tongue midline Neck exam: ABSENT: JVD Respiratory exam: PRESENT: wheezes - Scattered bilateral wheezing. Cardiovascular exam: PRESENT: RRR. ABSENT: diastolic murmur, rubs, systolic murmur GI/Abdominal exam: PRESENT: normal bowel sounds, soft. ABSENT: distended, guarding, mass, organolmegaly, rebound, tenderness Extremities exam: ABSENT: calf tenderness, clubbing, pedal edema Neurological exam: PRESENT: alert, awake, oriented to person, oriented to place , oriented to time, oriented to situation Psychiatric exam: PRESENT: appropriate affect Skin exam: PRESENT: dry, intact, warm. ABSENT: cyanosis, rash Results Laboratory Results: 08/25/16 07:30 08/25/16 07:30 08/25/16 08/25/16 07:30 07:30 WBC 7.6 RBC 3.34 L Hgb 10.0 L Hct 32.1 L MCV 96 MCH 29.9 MCHC 31.1 L RDW 15.0 H Plt Count 207 Seg Neutrophils % 90.5 H Lymphocytes % 6.1 L Monocytes % 3.4 Eosinophils % 0.0 Basophils % 0.0 Absolute Neutrophils 6.8 Absolute Lymphocytes 0.5 Absolute Monocytes 0.3 Absolute Eosinophils 0.0 Absolute Basophils 0.0 Sodium 139.8 Potassium 4.4 Chloride 102 Carbon Dioxide 24 Anion Gap 14 BUN 42 H Creatinine 2.14 H Est GFR ( Amer) 27 L Est GFR (Non-Af Amer) 22 L Glucose 139 H Calcium 8.5 Impressions: Chest CT 08/23/16 00:00 IMPRESSION: The previously described multiple bilateral predominately subcentimeter pulmonary and pleural based nodules are again identified and appear essentially unchanged. No acute consolidations or pleural effusions are identified. Previously described chronic appearing changes are again identified. Other findings as noted above Chest X-Ray 08/23/16 12:21 IMPRESSION: 1. Stable 2 cm left lower lobe mass. 2. No evidence of acute pneumonia. 3. Chronic parenchymal changes as described Assessment & Plan - Diagnosis (1) Chronic hypoxemic respiratory failure Is this a current diagnosis for this admission?: YesPlan: Patient has acute on chronic hypoxic respiratory failure. This is secondary to acute COPD exacerbation. We'll continue with the IV steroids. (2) COPD with exacerbation Is this a current diagnosis for this admission?: YesPlan: Patient has an acute exacerbation of COPD. We'll continue with the IV steroids , nebulizers. (3) Anemia of chronic disease Is this a current diagnosis for this admission?: YesPlan: Patient has anemia of chronic disease most likely secondary to chronic renal failure stage V. (4) Diabetes mellitus Qualifiers: Diabetes mellitus type: type 2 Diabetes mellitus complication status: with unspecified complications Diabetes mellitus terminal computer operator insulin use: without terminal computer operator use Qualified Code(s): E11.8 - Type 2 diabetes mellitus with unspecified complications; Z79.4 - [facility] (current) use of insulin Is this a current diagnosis for this admission?: YesPlan: Blood sugars are under adequate control. (5) Essential hypertension Is this a current diagnosis for this admission?: YesPlan: Continue Lopressor and diltiazem. (6) History of atrial fibrillation Is this a current diagnosis for this admission?: YesPlan: Patient is in a regular rhythm today. (7) Hypothyroidism Qualifiers: Hypothyroidism type: unspecified Qualified Code(s): E03.9 - Hypothyroidism, unspecified Is this a current diagnosis for this admission?: YesPlan: Continue Synthroid (8) Coronary artery disease Qualifiers: Coronary Disease-Associated Artery/Lesion type: [place] artery [place] vs. transplanted heart: [place] heart Associated angina: without angina Qualified Code(s): I25.10 - Atherosclerotic heart disease of [place] coronary artery without angina pectoris Is this a current diagnosis for this admission?: YesPlan: Denies any chest pain. - Time Time Spent with patient: 25-34 minutes - Inpatient Certification Medical Necessity: Need for Nebulizer Therapy and Monitoring of Response
[2016-08-25] MEDS ORDERED: NORMAL SALINE 1000 ML 1,000 ML IV PRN (15:46)
--- NOTE | 2016-08-25 15:53 | PDOC PROGRESS REPORT ---
Subjective Progress Note for:: 08/25/16 Subjective:: I saw the patient during dialysis this afternoon. She tells me that she is still coughing but unable to expectorate any phlegm. She is is still short of breath and has some wheezing. She doesn't really have much intake and she is under her dry weight. Otherwise she is afebrile. She is currently tolerating dialysis without any issues. Physical Exam Vital Signs: Temp Pulse Resp BP Pulse Ox 98.4 F 76 16 144/50 H 99 08/25/16 08:35 08/25/16 12:12 08/25/16 12:12 08/25/16 08:35 08/25/16 08:35 Intake & Output 08/24/16 08/25/16 08/26/16 06:59 06:59 06:59 Intake Total 1934 Balance 1934 Weight 75.3 kg 76.3 kg Vital signs during dialysis when I saw her: Blood pressure of 144/59, heart rate of 77, blood flow rate of 350 mL per minute, and dialysate flow rate of 600 mL per minute. Exam: General appearance: PRESENT: no acute distress, cooperative, well-developed, well-nourished Head exam: PRESENT: atraumatic, normocephalic Eye exam: PRESENT: conjunctiva pink, PERRLA. ABSENT: scleral icterus Neck exam: ABSENT: JVD Respiratory exam: PRESENT: Diminished breath sounds. She has expiratory wheezes posteriorly ABSENT: crackles, rales, rhonchi, unlabored Cardiovascular exam: PRESENT: Regular rate rhythm -+S1, +S2. ABSENT: diastolic murmur, systolic murmur GI/Abdominal exam: PRESENT: normal bowel sounds, soft. ABSENT: guarding, mass, tenderness Extremities exam: ABSENT: No edema Neurological exam: PRESENT: alert, awake, oriented to person, place and time. Skin exam: PRESENT: dry, warm, Results Laboratory Results: 08/25/16 07:30 08/25/16 07:30 08/25/16 08/25/16 07:30 07:30 WBC 7.6 RBC 3.34 L Hgb 10.0 L Hct 32.1 L MCV 96 MCH 29.9 MCHC 31.1 L RDW 15.0 H Plt Count 207 Seg Neutrophils % 90.5 H Lymphocytes % 6.1 L Monocytes % 3.4 Eosinophils % 0.0 Basophils % 0.0 Absolute Neutrophils 6.8 Absolute Lymphocytes 0.5 Absolute Monocytes 0.3 Absolute Eosinophils 0.0 Absolute Basophils 0.0 Sodium 139.8 Potassium 4.4 Chloride 102 Carbon Dioxide 24 Anion Gap 14 BUN 42 H Creatinine 2.14 H Est GFR ( Amer) 27 L Est GFR (Non-Af Amer) 22 L Glucose 139 H Calcium 8.5 Impressions: Chest CT 08/23/16 00:00 IMPRESSION: The previously described multiple bilateral predominately subcentimeter pulmonary and pleural based nodules are again identified and appear essentially unchanged. No acute consolidations or pleural effusions are identified. Previously described chronic appearing changes are again identified. Other findings as noted above Chest X-Ray 08/23/16 12:21 IMPRESSION: 1. Stable 2 cm left lower lobe mass. 2. No evidence of acute pneumonia. 3. Chronic parenchymal changes as described Assessment & Plan - Diagnosis (1) ESRD on hemodialysis Is this a current diagnosis for this admission?: YesPlan: We will do dialysis today for 3 hours, using the patient's PermCath, with 2 potassium bath, blood flow rate of 350 mL per minute, dialysate flow rate of 600 mL per minute, ultrafiltration 1 L, no heparin and no Procrit during dialysis. We will continue hemodialysis support while the patient is here in hospital. I will be unavailable from Tuesday until Tuesday so Dr. Nunez will be supervising her dialysis in my absence. (2) COPD with exacerbation Is this a current diagnosis for this admission?: YesPlan: Continue current management by the hospitalist service. (3) Anemia of chronic disease Is this a current diagnosis for this admission?: YesPlan: Mild. We will give Procrit as needed. She does not need it today. (4) Chronic hypoxemic respiratory failure Is this a current diagnosis for this admission?: YesPlan: Due to COPD. (5) Diabetes mellitus Qualifiers: Diabetes mellitus type: type 2 Diabetes mellitus complication status: with unspecified complications Diabetes mellitus ferry terminal agent insulin use: without ferry terminal agent use Qualified Code(s): E11.8 - Type 2 diabetes mellitus with unspecified complications; Z79.4 - [facility] care (current) use of insulin Is this a current diagnosis for this admission?: YesPlan: Well-controlled (6) Essential hypertension Is this a current diagnosis for this admission?: YesPlan: Fairly controlled. (7) Renal cell carcinoma Qualifiers: Laterality: unspecified laterality Qualified Code(s): C64.9 - Malignant neoplasm of unspecified kidney, except renal pelvis Is this a current diagnosis for this admission?: YesPlan: With metastasis to the lungs. On chemotherapy under the supervision of Dr. Littlejohn. (8) Atrial fibrillation Qualifiers: Atrial fibrillation type: paroxysmal Qualified Code(s): I48.0 - Paroxysmal atrial fibrillation Is this a current diagnosis for this admission?: YesPlan: Improved rate control with increase of metoprolol. (9) Restless legs syndrome (RLS) Is this a current diagnosis for this admission?: YesPlan: Increase her Requip to 1 mg by mouth every at bedtime. - Time Time with patient: 15-25 minutes
[2016-08-25] MEDS ORDERED: HEPARIN SOD (PORCINE) 1,000 UNIT/ML 10 ML VIAL IV PRN (16:22)
[2016-08-25] MEDS ORDERED: HEPARIN SOD (PORCINE) 1,000 UNIT/ML 1 ML VIAL IV ONE (16:40)
[2016-08-25] MEDS: ROPINIROLE HCL 1 MG TABLET PO SCH (17:46)
[2016-08-25] MEDS: FOLIC ACID/VITAMIN B COMP W-C CAPSULE PO SCH (17:46)
[2016-08-25] MEDS ORDERED: (PENDING PHARMACY ID) (Ropinirole Hcl [Requip] 1 MG) PO SCH (18:00)
[2016-08-25] MEDS ORDERED: ROPINIROLE HCL 1 MG TABLET PO SCH (18:00)
[2016-08-25] MEDS: ATORVASTATIN CALCIUM 40 MG TABLET PO SCH (21:34)
[2016-08-25] MEDS: LATANOPROST 0.005% OPH SOLN 2.5 ML OU SCH (21:34)
[2016-08-26] MEDS: IPRATROPIUM BROMIDE 0.02% NEB 0.5 MG/2.5 ML AMPUL NEB SCH ×6 (00:01→19:47)
[2016-08-26] MEDS: LEVALBUTEROL HCL NEB 1.25 MG/3 ML AMPUL NEB SCH ×6 (00:01→19:47)
[2016-08-26 05:07] LABS: ABSOLUTE LYMPHOCYTES (AUTO) 0.4 10^3/uL (0.5-4.7); ABSOLUTE MONOCYTES (AUTO) 0.3 10^3/uL (0.1-1.4); ABSOLUTE NEUT (AUTO) 5.2 10^3/uL (1.7-8.2); BASOPHILS % (AUTO) 0.1 % (0-2); HEMOGLOBIN 10.2 g/dL (12.0-15.5); HGB HCT DIFFERENCE -1.4; LYMPHOCYTES % (AUTO) 6.7 % (13-45); MEAN CORPUSCULAR HEMOGLOBIN 29.8 pg (27.0-33.4); MEAN CORPUSCULAR HGB CONC 31.8 g/dL (32.0-36.0); MEAN CORPUSCULAR VOLUME 94 fl (80-97); MONOCYTES % (AUTO) 4.4 % (3-13); RED BLOOD COUNT 3.41 10^6/uL (3.72-5.28); RED CELL DISTRIBUTION WIDTH 14.7 % (11.5-14.0); SEGMENTED NEUTROPHILS % (AUTO) 88.8 % (42-78); WHITE BLOOD COUNT 5.9 10^3/uL (4.0-10.5)
[2016-08-26] MEDS: HEPARIN SOD (PORCINE) 5,000 UNIT/ML 1 ML SYRINGE SUBCUT SCH ×3 (05:10→21:22)
[2016-08-26] MEDS: METHYLPREDNISOLONE INJ 125 MG/2 ML SDV IV SCH (05:10)
[2016-08-26] MEDS: LANSOPRAZOLE 30 MG TAB.RAP.DR PO SCH (05:10)
[2016-08-26] MEDS: OXYCODONE HCL IR 5 MG TABLET PO PRN ×3 (05:10→21:51)
[2016-08-26] MEDS: LEVOTHYROXINE SODIUM 0.05 MG TABLET PO SCH (05:10)
[2016-08-26 05:24] LABS: ANION GAP 11 (5-19); BLOOD UREA NITROGEN 27 mg/dL (7-20); CALCIUM 8.1 mg/dL (8.4-10.2); CARBON DIOXIDE 30 mmol/L (22-30); CHLORIDE 99 mmol/L (98-107); CREATININE RESULT 1.57 mg/dL (0.52-1.25); GLUCOSE 149 mg/dL (75-110); POTASSIUM 3.9 mmol/L (3.6-5.0)
[2016-08-26] MEDS: DILTIAZEM HCL 180 MG CAPSULE.CR PO SCH (09:17)
[2016-08-26] MEDS: METOPROLOL TARTRATE 50 MG TABLET PO SCH ×2 (09:17→21:23)
[2016-08-26] MEDS: DOCUSATE SODIUM 100 MG CAPSULE PO SCH ×2 (09:17→17:12)
--- NOTE | 2016-08-26 10:20 | PDOC PROGRESS REPORT ---
Subjective Progress Note for:: 08/26/16 Subjective:: Reports she feels less short of breath today. Physical Exam Vital Signs: Temp Pulse Resp BP Pulse Ox 97.8 F 79 18 127/52 H 95 08/26/16 07:00 08/26/16 07:00 08/26/16 07:00 08/26/16 07:00 08/26/16 07:00 Intake & Output 08/25/16 08/26/16 08/27/16 06:59 06:59 06:59 Intake Total 1935 1445 Output Total 1102 Balance 1935 343 Weight 76.3 kg 76.6 kg General appearance: PRESENT: no acute distress Eye exam: PRESENT: conjunctiva pink. ABSENT: scleral icterus Mouth exam: PRESENT: moist, tongue midline Neck exam: ABSENT: JVD Respiratory exam: PRESENT: wheezes - Scattered respiratory wheezes. Cardiovascular exam: PRESENT: RRR. ABSENT: diastolic murmur, rubs, systolic murmur GI/Abdominal exam: PRESENT: normal bowel sounds, soft. ABSENT: distended, guarding, mass, organolmegaly, rebound, tenderness Extremities exam: ABSENT: calf tenderness, clubbing, pedal edema Neurological exam: PRESENT: alert, awake, oriented to person, oriented to place , oriented to time, oriented to situation Psychiatric exam: PRESENT: appropriate affect Skin exam: PRESENT: dry, intact, warm. ABSENT: cyanosis, rash Results Laboratory Results: 08/26/16 04:46 08/26/16 04:46 08/26/16 08/26/16 04:46 04:46 WBC 5.9 RBC 3.41 L Hgb 10.2 L Hct 32.0 L MCV 94 MCH 29.8 MCHC 31.8 L RDW 14.7 H Plt Count 205 Seg Neutrophils % 88.8 H Lymphocytes % 6.7 L Monocytes % 4.4 Eosinophils % 0.0 Basophils % 0.1 Absolute Neutrophils 5.2 Absolute Lymphocytes 0.4 L Absolute Monocytes 0.3 Absolute Eosinophils 0.0 Absolute Basophils 0.0 Sodium 140.0 Potassium 3.9 Chloride 99 Carbon Dioxide 30 Anion Gap 11 BUN 27 H Creatinine 1.57 H Est GFR ( Amer) 38 L Est GFR (Non-Af Amer) 32 L Glucose 149 H Calcium 8.1 L 08/24/16 07:20 Nasophary (Mrsa Only) MRSA Surveillance Culture - Final NO MRSA RECOVERED Impressions: Chest CT 08/23/16 00:00 IMPRESSION: The previously described multiple bilateral predominately subcentimeter pulmonary and pleural based nodules are again identified and appear essentially unchanged. No acute consolidations or pleural effusions are identified. Previously described chronic appearing changes are again identified. Other findings as noted above Chest X-Ray 08/23/16 12:21 IMPRESSION: 1. Stable 2 cm left lower lobe mass. 2. No evidence of acute pneumonia. 3. Chronic parenchymal changes as described Assessment & Plan - Diagnosis (1) Chronic hypoxemic respiratory failure Is this a current diagnosis for this admission?: YesPlan: Patient has acute on chronic hypoxic respiratory failure. This is secondary to acute COPD exacerbation. We'll continue with the IV steroids. (2) COPD with exacerbation Is this a current diagnosis for this admission?: YesPlan: Patient has an acute exacerbation of COPD. We'll decrease the dose of IV steroids, and continue with nebulizers. (3) Anemia of chronic disease Is this a current diagnosis for this admission?: YesPlan: Patient has anemia of chronic disease most likely secondary to chronic renal failure stage V. (4) Diabetes mellitus Qualifiers: Diabetes mellitus type: type 2 Diabetes mellitus complication status: with unspecified complications Diabetes mellitus technician terminal and repeater insulin use: without skilled nursing use Qualified Code(s): E11.8 - Type 2 diabetes mellitus with unspecified complications; Z79.4 - technician terminal and repeater (current) use of insulin Is this a current diagnosis for this admission?: YesPlan: Blood sugars are under adequate control. (5) Essential hypertension Is this a current diagnosis for this admission?: YesPlan: Continue Lopressor and diltiazem. (6) History of atrial fibrillation Is this a current diagnosis for this admission?: YesPlan: Patient is in a regular rhythm today. (7) Hypothyroidism Qualifiers: Hypothyroidism type: unspecified Qualified Code(s): E03.9 - Hypothyroidism, unspecified Is this a current diagnosis for this admission?: YesPlan: Continue Synthroid (8) Coronary artery disease Qualifiers: Coronary Disease-Associated Artery/Lesion type: [place] artery [place] vs. transplanted heart: [place] heart Associated angina: without angina Qualified Code(s): I25.10 - Atherosclerotic heart disease of [place] coronary artery without angina pectoris Is this a current diagnosis for this admission?: YesPlan: Denies any chest pain. - Time Time Spent with patient: 25-34 minutes - Inpatient Certification Medical Necessity: Need Close Monitoring Due to Risk of Patient Decompensation
[2016-08-26] MEDS: METHYLPREDNISOLONE INJ 40 MG/1 ML SDV IV SCH ×2 (13:28→21:22)
[2016-08-26] MEDS ORDERED: METHYLPREDNISOLONE INJ 125 MG/2 ML SDV IV SCH (14:00)
[2016-08-26] MEDS: FOLIC ACID/VITAMIN B COMP W-C CAPSULE PO SCH (17:12)
[2016-08-26] MEDS: ROPINIROLE HCL 1 MG TABLET PO SCH (17:12)
--- NOTE | 2016-08-26 18:27 | PDOC PROGRESS REPORT ---
Subjective Progress Note for:: 08/26/16 Subjective:: Patient said that her breathing is a little bit better. However she is developing some sore throat. She still is having some cough. Otherwise no other complaints. Physical Exam Vital Signs: Temp Pulse Resp BP Pulse Ox 98.8 F 73 17 135/44 H 96 08/26/16 15:00 08/26/16 15:41 08/26/16 15:41 08/26/16 15:00 08/26/16 15:00 Intake & Output 08/25/16 08/26/16 08/27/16 06:59 06:59 06:59 Intake Total 193 1445 330 Output Total 1102 Balance 1935 343 330 Weight 76.3 kg 76.6 kg Exam: General appearance: PRESENT: no acute distress, cooperative, well-developed, well-nourished Head exam: PRESENT: atraumatic, normocephalic Eye exam: PRESENT: conjunctiva slightly pale, PERRLA. ABSENT: scleral icterus Neck exam: ABSENT: JVD Respiratory exam: PRESENT: Diminished breath sounds. Diffuse wheezing on posterior lung simmons bilaterally, also has some crackles on the anterior right lung simmons ABSENT: rhonchi, unlabored Cardiovascular exam: PRESENT: Regular rate rhythm -+S1, +S2. ABSENT: diastolic murmur, systolic murmur GI/Abdominal exam: PRESENT: normal bowel sounds, soft. ABSENT: guarding, mass, tenderness Extremities exam: ABSENT: No edema Neurological exam: PRESENT: alert, awake, oriented to person, place and time. Skin exam: PRESENT: dry, warm, Results Laboratory Results: 08/26/16 04:46 08/26/16 04:46 08/26/16 08/26/16 04:46 04:46 WBC 5.9 RBC 3.41 L Hgb 10.2 L Hct 32.0 L MCV 94 MCH 29.8 MCHC 31.8 L RDW 14.7 H Plt Count 205 Seg Neutrophils % 88.8 H Lymphocytes % 6.7 L Monocytes % 4.4 Eosinophils % 0.0 Basophils % 0.1 Absolute Neutrophils 5.2 Absolute Lymphocytes 0.4 L Absolute Monocytes 0.3 Absolute Eosinophils 0.0 Absolute Basophils 0.0 Sodium 140.0 Potassium 3.9 Chloride 99 Carbon Dioxide 30 Anion Gap 11 BUN 27 H Creatinine 1.57 H Est GFR ( Amer) 38 L Est GFR (Non-Af Amer) 32 L Glucose 149 H Calcium 8.1 L 08/24/16 07:20 Nasophary (Mrsa Only) MRSA Surveillance Culture - Final NO MRSA RECOVERED Impressions: Chest CT 08/23/16 00:00 IMPRESSION: The previously described multiple bilateral predominately subcentimeter pulmonary and pleural based nodules are again identified and appear essentially unchanged. No acute consolidations or pleural effusions are identified. Previously described chronic appearing changes are again identified. Other findings as noted above Chest X-Ray 08/23/16 12:21 IMPRESSION: 1. Stable 2 cm left lower lobe mass. 2. No evidence of acute pneumonia. 3. Chronic parenchymal changes as described Assessment & Plan - Diagnosis (1) ESRD on hemodialysis Is this a current diagnosis for this admission?: YesPlan: We will plan to do dialysis tomorrow. I will be unavailable starting tonight until Tuesday. Dr. Robb Nunez will be covering me and will be supervising dialysis in this patient in my absence. (2) COPD with exacerbation Is this a current diagnosis for this admission?: YesPlan: Continue current management by the hospitalist service. (3) Anemia of chronic disease Is this a current diagnosis for this admission?: YesPlan: Mild. We will give Procrit as needed. (4) Chronic hypoxemic respiratory failure Is this a current diagnosis for this admission?: YesPlan: Due to COPD. (5) Diabetes mellitus Qualifiers: Diabetes mellitus type: type 2 Diabetes mellitus complication status: with unspecified complications Diabetes mellitus mcc insulin use: without mcc use Qualified Code(s): E11.8 - Type 2 diabetes mellitus with unspecified complications; Z79.4 - long-term (current) use of insulin Is this a current diagnosis for this admission?: YesPlan: Well-controlled (6) Essential hypertension Is this a current diagnosis for this admission?: YesPlan: Fairly controlled. (7) Renal cell carcinoma Qualifiers: Laterality: unspecified laterality Qualified Code(s): C64.9 - Malignant neoplasm of unspecified kidney, except renal pelvis Is this a current diagnosis for this admission?: YesPlan: With metastasis to the lungs. On chemotherapy under the supervision of Dr. Littlejohn. (8) Atrial fibrillation Qualifiers: Atrial fibrillation type: paroxysmal Qualified Code(s): I48.0 - Paroxysmal atrial fibrillation Is this a current diagnosis for this admission?: YesPlan: Improved rate control with increase of metoprolol. (9) Restless legs syndrome (RLS) Is this a current diagnosis for this admission?: YesPlan: Increase her Requip to 1 mg by mouth every at bedtime. (10) Sore throat Is this a current diagnosis for this admission?: YesPlan: Start some Magic mouthwash 4 times a day. - Time Time with patient: 15-25 minutes
[2016-08-26] MEDS: ATORVASTATIN CALCIUM 40 MG TABLET PO SCH (21:23)
[2016-08-26] MEDS: LATANOPROST 0.005% OPH SOLN 2.5 ML OU SCH (21:24)
[2016-08-26] MEDS: NYSTATIN/DEXAMETH/DIPHEN SUSP 120 ML PO SCH (21:24)
[2016-08-26] MEDS ORDERED: MELATONIN 3 MG PO SCH (22:00)
[2016-08-27] MEDS: IPRATROPIUM BROMIDE 0.02% NEB 0.5 MG/2.5 ML AMPUL NEB SCH ×6 (00:05→20:04)
[2016-08-27] MEDS: LEVALBUTEROL HCL NEB 1.25 MG/3 ML AMPUL NEB SCH ×6 (00:06→20:04)
[2016-08-27] MEDS: HEPARIN SOD (PORCINE) 5,000 UNIT/ML 1 ML SYRINGE SUBCUT SCH ×3 (05:48→21:24)
[2016-08-27] MEDS: METHYLPREDNISOLONE INJ 40 MG/1 ML SDV IV SCH ×3 (05:49→21:23)
[2016-08-27] MEDS: LANSOPRAZOLE 30 MG TAB.RAP.DR PO SCH (05:54)
[2016-08-27] MEDS: LEVOTHYROXINE SODIUM 0.05 MG TABLET PO SCH (05:54)
[2016-08-27 07:54] LABS: ABSOLUTE LYMPHOCYTES (AUTO) 0.4 10^3/uL (0.5-4.7); ABSOLUTE MONOCYTES (AUTO) 0.3 10^3/uL (0.1-1.4); ABSOLUTE NEUT (AUTO) 4.2 10^3/uL (1.7-8.2); BASOPHILS % (AUTO) 0.1 % (0-2); HEMATOCRIT 33.3 % (36.0-47.0); HEMOGLOBIN 10.7 g/dL (12.0-15.5); HGB HCT DIFFERENCE -1.2; MEAN CORPUSCULAR HEMOGLOBIN 30.3 pg (27.0-33.4); MEAN CORPUSCULAR HGB CONC 32.2 g/dL (32.0-36.0); MEAN CORPUSCULAR VOLUME 94 fl (80-97); MONOCYTES % (AUTO) 5.2 % (3-13); RED BLOOD COUNT 3.54 10^6/uL (3.72-5.28); RED CELL DISTRIBUTION WIDTH 14.9 % (11.5-14.0); SEGMENTED NEUTROPHILS % (AUTO) 86.7 % (42-78); WHITE BLOOD COUNT 4.8 10^3/uL (4.0-10.5)
[2016-08-27 08:08] LABS: ANION GAP 12 (5-19); BLOOD UREA NITROGEN 50 mg/dL (7-20); CALCIUM 8.2 mg/dL (8.4-10.2); CARBON DIOXIDE 27 mmol/L (22-30); CHLORIDE 100 mmol/L (98-107); CREATININE RESULT 1.98 mg/dL (0.52-1.25); GLUCOSE 199 mg/dL (75-110); POTASSIUM 3.9 mmol/L (3.6-5.0); SODIUM 139.3 mmol/L (137-145)
[2016-08-27] MEDS ORDERED: HEPARIN SOD (PORCINE) 1,000 UNIT/ML 10 ML VIAL IV PRN (11:00)
[2016-08-27] MEDS: DILTIAZEM HCL 180 MG CAPSULE.CR PO SCH (12:08)
[2016-08-27] MEDS: METOPROLOL TARTRATE 50 MG TABLET PO SCH ×2 (12:09→21:23)
[2016-08-27] MEDS: DOCUSATE SODIUM 100 MG CAPSULE PO SCH ×2 (12:09→17:02)
[2016-08-27] MEDS: NYSTATIN/DEXAMETH/DIPHEN SUSP 120 ML PO SCH ×4 (12:09→21:23)
[2016-08-27] MEDS: OXYCODONE HCL IR 5 MG TABLET PO PRN ×2 (12:15→21:34)
--- NOTE | 2016-08-27 13:51 | PDOC PROGRESS REPORT ---
Subjective Progress Note for:: 08/27/16 Subjective:: Mrs. Peres was seen on hemodialysis today. Covering her for Dr. Ann who is her recovery operator. She was admitted for COPD exacerbation and currently doing better on current medications. Her breathing is is a whole lot better. She denies any history of chest pain fever or chills. Dialysis orders were discussed with the treating nurse. She is undergoing dialysis currently without any issues. We will plan to remove 1-1.5 L of fluid today. Physical Exam Vital Signs: Temp Pulse Resp BP Pulse Ox 97.7 F 71 20 139/48 H 100 08/27/16 12:30 08/27/16 12:30 08/27/16 12:30 08/27/16 12:30 08/27/16 12:30 Intake & Output 08/26/16 08/27/16 08/28/16 06:59 06:59 06:59 Intake Total 1445 1815 Output Total 1102 Balance 343 1815 Weight 76.6 kg 76.3 kg General appearance: PRESENT: no acute distress Respiratory exam: PRESENT: clear to auscultation srinath, decreased breath sounds, rhonchi. ABSENT: crackles, stridor Cardiovascular exam: PRESENT: +S1, +S2, systolic murmur GI/Abdominal exam: PRESENT: soft. ABSENT: firm, tenderness Results Laboratory Results: 08/27/16 07:25 08/27/16 07:25 08/27/16 08/27/16 07:25 07:25 WBC 4.8 RBC 3.54 L Hgb 10.7 L Hct 33.3 L MCV 94 MCH 30.3 MCHC 32.2 RDW 14.9 H Plt Count 220 Seg Neutrophils % 86.7 H Lymphocytes % 8.0 L Monocytes % 5.2 Eosinophils % 0.0 Basophils % 0.1 Absolute Neutrophils 4.2 Absolute Lymphocytes 0.4 L Absolute Monocytes 0.3 Absolute Eosinophils 0.0 Absolute Basophils 0.0 Sodium 139.3 Potassium 3.9 Chloride 100 Carbon Dioxide 27 Anion Gap 12 BUN 50 H Creatinine 1.98 H Est GFR ( Amer) 29 L Est GFR (Non-Af Amer) 24 L Glucose 199 H Calcium 8.2 L Impressions: Chest CT 08/23/16 00:00 IMPRESSION: The previously described multiple bilateral predominately subcentimeter pulmonary and pleural based nodules are again identified and appear essentially unchanged. No acute consolidations or pleural effusions are identified. Previously described chronic appearing changes are again identified. Other findings as noted above Chest X-Ray 08/23/16 12:21 IMPRESSION: 1. Stable 2 cm left lower lobe mass. 2. No evidence of acute pneumonia. 3. Chronic parenchymal changes as described Assessment & Plan - Diagnosis (1) Anemia of chronic disease Is this a current diagnosis for this admission?: YesPlan: At this erythropoietin. (2) COPD with exacerbation Is this a current diagnosis for this admission?: YesPlan: Feeling a whole lot better on current treatments. (3) Diabetes mellitus Qualifiers: Diabetes mellitus type: type 2 Diabetes mellitus complication status: with unspecified complications Diabetes mellitus fci insulin use: without fci use Qualified Code(s): E11.8 - Type 2 diabetes mellitus with unspecified complications; Z79.4 - rat exterminator (current) use of insulin Is this a current diagnosis for this admission?: Yes (4) Essential hypertension Is this a current diagnosis for this admission?: YesPlan: Stable. See response to dialysis. (5) History of atrial fibrillation Is this a current diagnosis for this admission?: Yes (6) Renal cell carcinoma Qualifiers: Laterality: unspecified laterality Qualified Code(s): C64.9 - Malignant neoplasm of unspecified kidney, except renal pelvis Is this a current diagnosis for this admission?: Yes (7) ESRD on hemodialysis Is this a current diagnosis for this admission?: YesPlan: Patient undergoing dialysis without any issues. Orders discussed with treating nurse. Vital signs are stable. Will remove approximately 1-1-1/2 L of fluid today.
[2016-08-27] MEDS: FOLIC ACID/VITAMIN B COMP W-C CAPSULE PO SCH (16:08)
--- NOTE | 2016-08-27 16:09 | PDOC PROGRESS REPORT ---
Subjective Progress Note for:: 08/27/16 Subjective:: Reports she feels less short of breath today. Physical Exam Vital Signs: Temp Pulse Resp BP Pulse Ox 98.2 F 72 16 126/53 H 94 08/27/16 15:47 08/27/16 16:00 08/27/16 16:00 08/27/16 15:47 08/27/16 16:00 Intake & Output 08/26/16 08/27/16 08/28/16 06:59 06:59 06:59 Intake Total 1445 1815 Output Total 1102 Balance 343 1815 Weight 76.6 kg 76.3 kg General appearance: PRESENT: no acute distress Eye exam: PRESENT: conjunctiva pink. ABSENT: scleral icterus Mouth exam: PRESENT: moist, tongue midline Neck exam: ABSENT: JVD Respiratory exam: PRESENT: wheezes - Scattered bilateral expiratory wheezes.. ABSENT: rales, rhonchi Cardiovascular exam: PRESENT: RRR. ABSENT: diastolic murmur, rubs, systolic murmur GI/Abdominal exam: PRESENT: normal bowel sounds, soft. ABSENT: distended, guarding, mass, organolmegaly, rebound, tenderness Extremities exam: ABSENT: calf tenderness, clubbing, pedal edema Neurological exam: PRESENT: alert, awake, oriented to person, oriented to place , oriented to time, oriented to situation Psychiatric exam: PRESENT: appropriate affect Skin exam: PRESENT: dry, intact, warm. ABSENT: cyanosis, rash Results Laboratory Results: 08/27/16 07:25 08/27/16 07:25 08/27/16 08/27/16 07:25 07:25 WBC 4.8 RBC 3.54 L Hgb 10.7 L Hct 33.3 L MCV 94 MCH 30.3 MCHC 32.2 RDW 14.9 H Plt Count 220 Seg Neutrophils % 86.7 H Lymphocytes % 8.0 L Monocytes % 5.2 Eosinophils % 0.0 Basophils % 0.1 Absolute Neutrophils 4.2 Absolute Lymphocytes 0.4 L Absolute Monocytes 0.3 Absolute Eosinophils 0.0 Absolute Basophils 0.0 Sodium 139.3 Potassium 3.9 Chloride 100 Carbon Dioxide 27 Anion Gap 12 BUN 50 H Creatinine 1.98 H Est GFR ( Amer) 29 L Est GFR (Non-Af Amer) 24 L Glucose 199 H Calcium 8.2 L Impressions: Chest CT 08/23/16 00:00 IMPRESSION: The previously described multiple bilateral predominately subcentimeter pulmonary and pleural based nodules are again identified and appear essentially unchanged. No acute consolidations or pleural effusions are identified. Previously described chronic appearing changes are again identified. Other findings as noted above Chest X-Ray 08/23/16 12:21 IMPRESSION: 1. Stable 2 cm left lower lobe mass. 2. No evidence of acute pneumonia. 3. Chronic parenchymal changes as described Assessment & Plan - Diagnosis (1) Chronic hypoxemic respiratory failure Is this a current diagnosis for this admission?: YesPlan: Patient has acute on chronic hypoxic respiratory failure. This is secondary to acute COPD exacerbation. Improving with the IV steroids. (2) COPD with exacerbation Is this a current diagnosis for this admission?: YesPlan: Patient has an acute exacerbation of COPD. continue with nebulizers and IV steroids.. (3) Anemia of chronic disease Is this a current diagnosis for this admission?: YesPlan: Patient has anemia of chronic disease most likely secondary to chronic renal failure stage V. (4) Diabetes mellitus Qualifiers: Diabetes mellitus type: type 2 Diabetes mellitus complication status: with unspecified complications Diabetes mellitus group home insulin use: without superintendent container terminal use Qualified Code(s): E11.8 - Type 2 diabetes mellitus with unspecified complications; Z79.4 - nursing home (current) use of insulin Is this a current diagnosis for this admission?: YesPlan: Blood sugars are under adequate control. (5) Essential hypertension Is this a current diagnosis for this admission?: YesPlan: Continue Lopressor and diltiazem. (6) History of atrial fibrillation Is this a current diagnosis for this admission?: YesPlan: Patient is in a regular rhythm today. (7) Hypothyroidism Qualifiers: Hypothyroidism type: unspecified Qualified Code(s): E03.9 - Hypothyroidism, unspecified Is this a current diagnosis for this admission?: YesPlan: Continue Synthroid (8) Coronary artery disease Qualifiers: Coronary Disease-Associated Artery/Lesion type: [place] artery [place] vs. transplanted heart: [place] heart Associated angina: without angina Qualified Code(s): I25.10 - Atherosclerotic heart disease of [place] coronary artery without angina pectoris Is this a current diagnosis for this admission?: YesPlan: Denies any chest pain. - Time Time Spent with patient: 25-34 minutes - Inpatient Certification Medical Necessity: Need Close Monitoring Due to Risk of Patient Decompensation, Need for Nebulizer Therapy and Monitoring of Response
[2016-08-27] MEDS: ROPINIROLE HCL 1 MG TABLET PO SCH (17:03)
[2016-08-27] MEDS: ATORVASTATIN CALCIUM 40 MG TABLET PO SCH (21:23)
[2016-08-27] MEDS: LATANOPROST 0.005% OPH SOLN 2.5 ML OU SCH (21:24)
[2016-08-27] MEDS ORDERED: MELATONIN 3 MG PO SCH (22:00)
[2016-08-28] MEDS: LEVALBUTEROL HCL NEB 1.25 MG/3 ML AMPUL NEB SCH ×6 (00:08→20:26)
[2016-08-28] MEDS: IPRATROPIUM BROMIDE 0.02% NEB 0.5 MG/2.5 ML AMPUL NEB SCH ×6 (00:08→20:26)
[2016-08-28] MEDS: LANSOPRAZOLE 30 MG TAB.RAP.DR PO SCH (05:10)
[2016-08-28] MEDS: HEPARIN SOD (PORCINE) 5,000 UNIT/ML 1 ML SYRINGE SUBCUT SCH ×3 (05:10→21:08)
[2016-08-28] MEDS: METHYLPREDNISOLONE INJ 40 MG/1 ML SDV IV SCH ×3 (05:10→21:07)
[2016-08-28] MEDS: LEVOTHYROXINE SODIUM 0.05 MG TABLET PO SCH (05:10)
[2016-08-28] MEDS: OXYCODONE HCL IR 5 MG TABLET PO PRN ×2 (05:19→17:06)
[2016-08-28] MEDS: NYSTATIN/DEXAMETH/DIPHEN SUSP 120 ML PO SCH ×4 (09:35→21:08)
[2016-08-28] MEDS: DILTIAZEM HCL 180 MG CAPSULE.CR PO SCH (09:35)
[2016-08-28] MEDS: DOCUSATE SODIUM 100 MG CAPSULE PO SCH ×2 (09:35→17:06)
[2016-08-28] MEDS: METOPROLOL TARTRATE 50 MG TABLET PO SCH ×2 (09:35→21:07)
--- NOTE | 2016-08-28 10:34 | PDOC PROGRESS REPORT ---
Subjective Progress Note for:: 08/28/16 Subjective:: Complains of some wheezing. Physical Exam Vital Signs: Temp Pulse Resp BP Pulse Ox 98.4 F 74 16 139/51 H 93 08/28/16 07:47 08/28/16 07:54 08/28/16 07:54 08/28/16 07:47 08/28/16 07:54 Intake & Output 08/27/16 08/28/16 08/29/16 06:59 06:59 06:59 Intake Total 1815 1764 Output Total 1800 Balance 1815 -36 Weight 76.3 kg 76.3 kg General appearance: PRESENT: no acute distress Eye exam: PRESENT: conjunctiva pink. ABSENT: scleral icterus Ear exam: PRESENT: normal external ear exam Mouth exam: PRESENT: moist, tongue midline Neck exam: ABSENT: JVD Respiratory exam: PRESENT: clear to auscultation srinath, wheezes - Bilateral expiratory wheezes. ABSENT: rales, rhonchi Cardiovascular exam: PRESENT: RRR. ABSENT: diastolic murmur, rubs, systolic murmur GI/Abdominal exam: PRESENT: normal bowel sounds, soft. ABSENT: distended, guarding, mass, organolmegaly, rebound, tenderness Extremities exam: ABSENT: calf tenderness, clubbing, pedal edema Neurological exam: PRESENT: alert, awake, oriented to person, oriented to place , oriented to time, oriented to situation Psychiatric exam: PRESENT: appropriate affect Skin exam: PRESENT: dry, intact, warm. ABSENT: cyanosis, rash Results Laboratory Results: 08/27/16 07:25 08/27/16 07:25 Impressions: Chest CT 08/23/16 00:00 IMPRESSION: The previously described multiple bilateral predominately subcentimeter pulmonary and pleural based nodules are again identified and appear essentially unchanged. No acute consolidations or pleural effusions are identified. Previously described chronic appearing changes are again identified. Other findings as noted above Chest X-Ray 08/23/16 12:21 IMPRESSION: 1. Stable 2 cm left lower lobe mass. 2. No evidence of acute pneumonia. 3. Chronic parenchymal changes as described Assessment & Plan - Diagnosis (1) Chronic hypoxemic respiratory failure Is this a current diagnosis for this admission?: YesPlan: Patient has acute on chronic hypoxic respiratory failure. This is secondary to acute COPD exacerbation. Will continue with the IV steroids. (2) COPD with exacerbation Is this a current diagnosis for this admission?: YesPlan: Patient has an acute exacerbation of COPD. continue with nebulizers and IV steroids.. (3) Anemia of chronic disease Is this a current diagnosis for this admission?: YesPlan: Patient has anemia of chronic disease most likely secondary to chronic renal failure stage V. (4) Diabetes mellitus Qualifiers: Diabetes mellitus type: type 2 Diabetes mellitus complication status: with unspecified complications Diabetes mellitus long-term insulin use: without long-term use Qualified Code(s): E11.8 - Type 2 diabetes mellitus with unspecified complications; Z79.4 - hydrogeologist (current) use of insulin Is this a current diagnosis for this admission?: YesPlan: Blood sugars are under adequate control. (5) Essential hypertension Is this a current diagnosis for this admission?: YesPlan: Continue Lopressor and diltiazem. (6) History of atrial fibrillation Is this a current diagnosis for this admission?: YesPlan: Patient is in a regular rhythm today. (7) Hypothyroidism Qualifiers: Hypothyroidism type: unspecified Qualified Code(s): E03.9 - Hypothyroidism, unspecified Is this a current diagnosis for this admission?: YesPlan: Continue Synthroid (8) Coronary artery disease Qualifiers: Coronary Disease-Associated Artery/Lesion type: [place] artery [place] vs. transplanted heart: [place] heart Associated angina: without angina Qualified Code(s): I25.10 - Atherosclerotic heart disease of [place] coronary artery without angina pectoris Is this a current diagnosis for this admission?: YesPlan: Denies any chest pain. - Time Time Spent with patient: 25-34 minutes - Inpatient Certification Medical Necessity: Need for Nebulizer Therapy and Monitoring of Response
[2016-08-28] MEDS: ROPINIROLE HCL 1 MG TABLET PO SCH (17:06)
[2016-08-28] MEDS: FOLIC ACID/VITAMIN B COMP W-C CAPSULE PO SCH (17:06)
[2016-08-28] MEDS: ATORVASTATIN CALCIUM 40 MG TABLET PO SCH (21:07)
[2016-08-28] MEDS: LATANOPROST 0.005% OPH SOLN 2.5 ML OU SCH (21:07)
[2016-08-29] MEDS: IPRATROPIUM BROMIDE 0.02% NEB 0.5 MG/2.5 ML AMPUL NEB SCH ×6 (00:21→19:47)
[2016-08-29] MEDS: LEVALBUTEROL HCL NEB 1.25 MG/3 ML AMPUL NEB SCH ×6 (00:22→19:47)
[2016-08-29] MEDS: OXYCODONE HCL IR 5 MG TABLET PO PRN ×3 (01:34→17:00)
[2016-08-29 04:38] LABS: ABSOLUTE LYMPHOCYTES (AUTO) 0.5 10^3/uL (0.5-4.7); ABSOLUTE MONOCYTES (AUTO) 0.2 10^3/uL (0.1-1.4); ABSOLUTE NEUT (AUTO) 3.9 10^3/uL (1.7-8.2); HEMATOCRIT 32.2 % (36.0-47.0); HEMOGLOBIN 10.3 g/dL (12.0-15.5); HGB HCT DIFFERENCE -1.3; LYMPHOCYTES % (AUTO) 11.1 % (13-45); MEAN CORPUSCULAR HGB CONC 31.9 g/dL (32.0-36.0); MEAN CORPUSCULAR VOLUME 94 fl (80-97); MONOCYTES % (AUTO) 4.4 % (3-13); RED BLOOD COUNT 3.43 10^6/uL (3.72-5.28); RED CELL DISTRIBUTION WIDTH 14.4 % (11.5-14.0); SEGMENTED NEUTROPHILS % (AUTO) 84.5 % (42-78); WHITE BLOOD COUNT 4.6 10^3/uL (4.0-10.5)
[2016-08-29 04:56] LABS: ANION GAP 9 (5-19); BLOOD UREA NITROGEN 48 mg/dL (7-20); CALCIUM 8.5 mg/dL (8.4-10.2); CARBON DIOXIDE 27 mmol/L (22-30); CHLORIDE 104 mmol/L (98-107); CREATININE RESULT 1.71 mg/dL (0.52-1.25); GLUCOSE 169 mg/dL (75-110); POTASSIUM 3.9 mmol/L (3.6-5.0)
[2016-08-29] MEDS: METHYLPREDNISOLONE INJ 40 MG/1 ML SDV IV SCH ×3 (05:52→21:55)
[2016-08-29] MEDS: HEPARIN SOD (PORCINE) 5,000 UNIT/ML 1 ML SYRINGE SUBCUT SCH ×3 (05:53→21:55)
[2016-08-29] MEDS: LANSOPRAZOLE 30 MG TAB.RAP.DR PO SCH (05:53)
[2016-08-29] MEDS: LEVOTHYROXINE SODIUM 0.05 MG TABLET PO SCH (05:53)
[2016-08-29] MEDS: NYSTATIN/DEXAMETH/DIPHEN SUSP 120 ML PO SCH ×4 (09:34→21:56)
[2016-08-29] MEDS: DOCUSATE SODIUM 100 MG CAPSULE PO SCH ×2 (09:35→17:00)
[2016-08-29] MEDS: DILTIAZEM HCL 180 MG CAPSULE.CR PO SCH (09:35)
[2016-08-29] MEDS: METOPROLOL TARTRATE 50 MG TABLET PO SCH ×2 (09:35→21:55)
[2016-08-29] MEDS: THEOPHYLLINE ANHYDROUS 300 MG TAB.SR.12H PO SCH (10:02)
--- NOTE | 2016-08-29 11:38 | PDOC PROGRESS REPORT ---
Subjective Progress Note for:: 08/29/16 Subjective:: Complains of some wheezing. Physical Exam Vital Signs: Temp Pulse Resp BP Pulse Ox 97.7 F 70 16 144/50 H 99 08/29/16 08:40 08/29/16 08:40 08/29/16 08:40 08/29/16 08:40 08/29/16 08:40 Intake & Output 08/28/16 08/29/16 08/30/16 06:59 06:59 06:59 Intake Total 1764 1414 Output Total 1800 400 Balance -36 1014 Weight 76.3 kg 76.3 kg General appearance: PRESENT: no acute distress Eye exam: PRESENT: conjunctiva pink. ABSENT: scleral icterus Mouth exam: PRESENT: moist, tongue midline Neck exam: ABSENT: JVD Respiratory exam: PRESENT: wheezes - Bilateral expiratory wheezes Cardiovascular exam: PRESENT: RRR. ABSENT: diastolic murmur, rubs, systolic murmur GI/Abdominal exam: PRESENT: normal bowel sounds, soft. ABSENT: distended, guarding, mass, organolmegaly, rebound, tenderness Extremities exam: ABSENT: calf tenderness, clubbing, pedal edema Neurological exam: PRESENT: alert, awake, oriented to person, oriented to place , oriented to time, oriented to situation Psychiatric exam: PRESENT: appropriate affect Skin exam: PRESENT: dry, intact, warm. ABSENT: cyanosis, rash Results Laboratory Results: 08/29/16 04:09 08/29/16 04:09 08/29/16 08/29/16 04:09 04:09 WBC 4.6 RBC 3.43 L Hgb 10.3 L Hct 32.2 L MCV 94 MCH 30.0 MCHC 31.9 L RDW 14.4 H Plt Count 192 Seg Neutrophils % 84.5 H Lymphocytes % 11.1 L Monocytes % 4.4 Eosinophils % 0.0 Basophils % 0.0 Absolute Neutrophils 3.9 Absolute Lymphocytes 0.5 Absolute Monocytes 0.2 Absolute Eosinophils 0.0 Absolute Basophils 0.0 Sodium 140.0 Potassium 3.9 Chloride 104 Carbon Dioxide 27 Anion Gap 9 BUN 48 H Creatinine 1.71 H Est GFR ( Amer) 35 L Est GFR (Non-Af Amer) 29 L Glucose 169 H Calcium 8.5 Impressions: Chest CT 08/23/16 00:00 IMPRESSION: The previously described multiple bilateral predominately subcentimeter pulmonary and pleural based nodules are again identified and appear essentially unchanged. No acute consolidations or pleural effusions are identified. Previously described chronic appearing changes are again identified. Other findings as noted above Chest X-Ray 08/23/16 12:21 IMPRESSION: 1. Stable 2 cm left lower lobe mass. 2. No evidence of acute pneumonia. 3. Chronic parenchymal changes as described Assessment & Plan - Diagnosis (1) Chronic hypoxemic respiratory failure Is this a current diagnosis for this admission?: YesPlan: Patient has acute on chronic hypoxic respiratory failure. This is secondary to acute COPD exacerbation. Will continue with the IV steroids. The patient is continuing to wheeze and we will add on theophylline today. (2) COPD with exacerbation Is this a current diagnosis for this admission?: YesPlan: Patient has an acute exacerbation of COPD. continue with nebulizers and IV steroids and add on theophylline. (3) Anemia of chronic disease Is this a current diagnosis for this admission?: YesPlan: Patient has anemia of chronic disease most likely secondary to chronic renal failure stage V. (4) Diabetes mellitus Qualifiers: Diabetes mellitus type: type 2 Diabetes mellitus complication status: with unspecified complications Diabetes mellitus [facility] insulin use: without laborer marine terminal use Qualified Code(s): E11.8 - Type 2 diabetes mellitus with unspecified complications; Z79.4 - care home (current) use of insulin Is this a current diagnosis for this admission?: YesPlan: Blood sugars are under adequate control. (5) Essential hypertension Is this a current diagnosis for this admission?: YesPlan: Continue Lopressor and diltiazem. (6) History of atrial fibrillation Is this a current diagnosis for this admission?: YesPlan: Patient is in a regular rhythm today. (7) Hypothyroidism Qualifiers: Hypothyroidism type: unspecified Qualified Code(s): E03.9 - Hypothyroidism, unspecified Is this a current diagnosis for this admission?: YesPlan: Continue Synthroid (8) Coronary artery disease Qualifiers: Coronary Disease-Associated Artery/Lesion type: [place] artery [place] vs. transplanted heart: [place] heart Associated angina: without angina Qualified Code(s): I25.10 - Atherosclerotic heart disease of [place] coronary artery without angina pectoris Is this a current diagnosis for this admission?: YesPlan: Denies any chest pain. - Time Time Spent with patient: 25-34 minutes - Inpatient Certification Medical Necessity: Need for Nebulizer Therapy and Monitoring of Response
[2016-08-29] MEDS: FOLIC ACID/VITAMIN B COMP W-C CAPSULE PO SCH (16:13)
[2016-08-29] MEDS: ROPINIROLE HCL 1 MG TABLET PO SCH (17:00)
[2016-08-29] MEDS: ATORVASTATIN CALCIUM 40 MG TABLET PO SCH (21:55)
[2016-08-29] MEDS: LATANOPROST 0.005% OPH SOLN 2.5 ML OU SCH (21:56)
[2016-08-30] MEDS: LEVALBUTEROL HCL NEB 1.25 MG/3 ML AMPUL NEB SCH ×4 (00:02→11:35)
[2016-08-30] MEDS: IPRATROPIUM BROMIDE 0.02% NEB 0.5 MG/2.5 ML AMPUL NEB SCH ×4 (00:02→11:35)
[2016-08-30] MEDS: HEPARIN SOD (PORCINE) 5,000 UNIT/ML 1 ML SYRINGE SUBCUT SCH ×2 (05:02→14:09)
[2016-08-30] MEDS: LEVOTHYROXINE SODIUM 0.05 MG TABLET PO SCH (05:03)
[2016-08-30] MEDS: LANSOPRAZOLE 30 MG TAB.RAP.DR PO SCH (05:03)
[2016-08-30] MEDS: METHYLPREDNISOLONE INJ 40 MG/1 ML SDV IV SCH (05:03)
[2016-08-30] MEDS: OXYCODONE HCL IR 5 MG TABLET PO PRN (05:19)
[2016-08-30 07:07] LABS: ABSOLUTE LYMPHOCYTES (AUTO) 0.4 10^3/uL (0.5-4.7); ABSOLUTE MONOCYTES (AUTO) 0.3 10^3/uL (0.1-1.4); ABSOLUTE NEUT (AUTO) 5.3 10^3/uL (1.7-8.2); HEMATOCRIT 33.4 % (36.0-47.0); HEMOGLOBIN 10.5 g/dL (12.0-15.5); HGB HCT DIFFERENCE -1.9; LYMPHOCYTES % (AUTO) 7.5 % (13-45); MEAN CORPUSCULAR HEMOGLOBIN 29.6 pg (27.0-33.4); MEAN CORPUSCULAR HGB CONC 31.4 g/dL (32.0-36.0); MEAN CORPUSCULAR VOLUME 94 fl (80-97); MONOCYTES % (AUTO) 4.7 % (3-13); RED BLOOD COUNT 3.54 10^6/uL (3.72-5.28); RED CELL DISTRIBUTION WIDTH 14.3 % (11.5-14.0); SEGMENTED NEUTROPHILS % (AUTO) 87.8 % (42-78)
[2016-08-30 07:28] LABS: ANION GAP 11 (5-19); BLOOD UREA NITROGEN 55 mg/dL (7-20); CALCIUM 8.9 mg/dL (8.4-10.2); CARBON DIOXIDE 24 mmol/L (22-30); CHLORIDE 105 mmol/L (98-107); CREATININE RESULT 1.72 mg/dL (0.52-1.25); GLUCOSE 200 mg/dL (75-110); POTASSIUM 4.1 mmol/L (3.6-5.0); SODIUM 139.7 mmol/L (137-145)
[2016-08-30] MEDS: DILTIAZEM HCL 180 MG CAPSULE.CR PO SCH (09:50)
[2016-08-30] MEDS: METOPROLOL TARTRATE 50 MG TABLET PO SCH (09:51)
[2016-08-30] MEDS: DOCUSATE SODIUM 100 MG CAPSULE PO SCH (09:51)
[2016-08-30] MEDS: NYSTATIN/DEXAMETH/DIPHEN SUSP 120 ML PO SCH ×2 (09:51→14:09)
[2016-08-30] MEDS: THEOPHYLLINE ANHYDROUS 300 MG TAB.SR.12H PO SCH (09:51)
[2016-08-30] MEDS ORDERED: PREDNISONE 20 MG TABLET PO SCH (10:00)
[2016-08-30 12:46] VITALS: BP 141/55
--- NOTE | 2016-08-30 13:43 | PDOC DISCHARGE SUMMARY ---
General - Admit/Disc Date/PCP Admission Date/Primary Care Provider: 08/23/16 16:39 SREEDHAR NIEVES MD Discharge Date: 08/30/16 - Discharge Diagnosis (1) Chronic hypoxemic respiratory failure Is this a current diagnosis for this admission?: YesSummary: Secondary to COPD. (2) COPD with exacerbation Is this a current diagnosis for this admission?: YesSummary: With IV steroids and theophylline was added on. (3) Anemia of chronic disease Is this a current diagnosis for this admission?: Yes (4) Diabetes mellitus Is this a current diagnosis for this admission?: Yes (5) Essential hypertension Is this a current diagnosis for this admission?: Yes (6) History of atrial fibrillation Is this a current diagnosis for this admission?: Yes (7) Hypothyroidism Is this a current diagnosis for this admission?: Yes (8) Coronary artery disease Is this a current diagnosis for this admission?: Yes (9) ESRD on hemodialysis Is this a current diagnosis for this admission?: YesSummary: She did receive dialysis while hospitalized. Her normal therapy is on Tuesday and Saturdays. - Additional Information Discharge Diet: Diabetic Discharge Activity: Activity As Tolerated Home Medications: Albuterol Sulfate [Albuterol Sulfate 2.5mg/3 mL] 2.5 mg IH RTQ6HP PRN 08/23/16 Aspirin [Aspirin EC] 81 mg PO DAILY 08/23/16 Atorvastatin Calcium [Lipitor 10 mg Tablet] 10 mg PO QHS 08/23/16 Diltiazem HCl [Cardizem Cd 180 mg Capsule] 180 mg PO DAILY 08/23/16 Fluticasone/Salmeterol [Advair 250-50 Diskus 28 dose] 1 inh IH Q12 08/23/16 Furosemide [Lasix 40 mg Tablet] 40 mg PO ASDIR PRN 08/23/16 Glimepiride [Amaryl 1 mg Tablet] 1 mg PO QAM 08/23/16 Hydrocodone/Acetaminophen [[place] 5-325 Tablet] 1 each PO Q6H PRN 08/23/16 Latanoprost [Xalatan 0.005% Oph Soln 2.5 ml] 1 drop OU QHS 08/23/16 Montelukast Sodium [Singulair 10 mg Tablet] 10 mg PO QHS 08/23/16 Promethazine HCl [Phenergan 25 mg Tablet] 12.5 mg PO Q4HP PRN 08/23/16 Ropinirole HCl [Requip] 1 mg PO QPM 08/23/16 Levothyroxine Sodium [Synthroid 0.05 mg Tablet] 0.05 mg PO Q6AM #30 tablet 08/30 Metoprolol Tartrate [Lopressor 50 mg Tablet] 50 mg PO Q12 #60 tablet 08/30/16 Prednisone [Deltasone 20 mg Tablet] 10 mg PO DAILY #39 tablet 08/30/16 Theophylline Anhydrous [[place]-Dur 300 mg Tab.sr] 300 mg PO BID #60 tab.sr.12h History of Present Illness History of Present Illness: KATHERINE RAWLS is a 81 year old female who has renal cell carcinomas getting treatment to was just treated as an outpatient for pneumonia prior to admission. She presented with shortness of breath and wheezing and was found to have an acute COPD exacerbation. Hospital Course Hospital Course: Patient presented with an acute COPD exacerbation after being treated as an outpatient for pneumonia. The patient was started on IV steroids and nebulizers. She was slow to improve and the theophylline was added onto her therapy. Shortly after that and theophylline patient's breathing improved and she will be sent home on theophylline. Patient was transitioned over from IV steroids to prednisone. She will complete a taper of prednisone as an outpatient. Patient also while hospitalized did require dialysis. Respiratory medical problems were stable during this hospitalization. Physical Exam Vital Signs: Temp Pulse Resp BP Pulse Ox 99.1 F 80 18 141/55 H 97 08/30/16 12:41 08/30/16 12:41 08/30/16 12:41 08/30/16 12:41 08/30/16 12:41 Intake & Output 08/29/16 08/30/16 08/31/16 06:59 06:59 06:59 Intake Total 1414 1295 Output Total 400 950 Balance 1014 345 Weight 76.3 kg 76.3 kg General appearance: PRESENT: no acute distress Eye exam: PRESENT: conjunctiva pink. ABSENT: scleral icterus Ear exam: PRESENT: normal external ear exam Mouth exam: PRESENT: moist, tongue midline Neck exam: ABSENT: JVD Respiratory exam: PRESENT: clear to auscultation srinath. ABSENT: rales, rhonchi, wheezes Cardiovascular exam: PRESENT: RRR. ABSENT: diastolic murmur, rubs, systolic murmur GI/Abdominal exam: PRESENT: normal bowel sounds, soft. ABSENT: distended, guarding, mass, organolmegaly, rebound, tenderness Extremities exam: ABSENT: calf tenderness, clubbing, pedal edema Neurological exam: PRESENT: alert, awake, oriented to person, oriented to place , oriented to time, oriented to situation Psychiatric exam: PRESENT: appropriate affect Skin exam: PRESENT: dry, intact, warm. ABSENT: cyanosis, rash Results Laboratory Results: 08/30/16 06:49 08/30/16 06:49 08/30/16 08/30/16 06:49 06:49 WBC 6.0 RBC 3.54 L Hgb 10.5 L Hct 33.4 L MCV 94 MCH 29.6 MCHC 31.4 L RDW 14.3 H Plt Count 191 Seg Neutrophils % 87.8 H Lymphocytes % 7.5 L Monocytes % 4.7 Eosinophils % 0.0 Basophils % 0.0 Absolute Neutrophils 5.3 Absolute Lymphocytes 0.4 L Absolute Monocytes 0.3 Absolute Eosinophils 0.0 Absolute Basophils 0.0 Sodium 139.7 Potassium 4.1 Chloride 105 Carbon Dioxide 24 Anion Gap 11 BUN 55 H Creatinine 1.72 H Est GFR ( Amer) 35 L Est GFR (Non-Af Amer) 29 L Glucose 200 H Calcium 8.9 Impressions: Chest CT 08/23/16 00:00 IMPRESSION: The previously described multiple bilateral predominately subcentimeter pulmonary and pleural based nodules are again identified and appear essentially unchanged. No acute consolidations or pleural effusions are identified. Previously described chronic appearing changes are again identified. Other findings as noted above Chest X-Ray 08/23/16 12:21 IMPRESSION: 1. Stable 2 cm left lower lobe mass. 2. No evidence of acute pneumonia. 3. Chronic parenchymal changes as described Qualifiers PATEINT BEING DISCHARGED WITH ANY OF THE FOLLOWING DIAGNOSIS?: No Plan Discharge Plan: Discharged home in stable condition. Time Spent: Greater than 30 Minutes
== END 2016-08-30 16:10 | disposition home or self-care (01) | DRG 190 ==
LOC: ER 11:41 → EH 16:18 → UNDOADMOB 16:18 → OBSVTOIN 16:39 → EH 16:39 → 5 08-24 01:15
PROC: 5A1D60Z (ICD-10-PCS; principal; 2016-08-25)
DX: J44.1 Chronic obstructive pulmonary disease with (acute) exacerbation (principal); J96.21 Acute and chronic respiratory failure with hypoxia; N18.6 End stage renal disease; I12.0 Hypertensive chronic kidney disease with stage 5 chronic kidney disease or end stage renal disease; C64.9 Malignant neoplasm of unspecified kidney, except renal pelvis; N25.81 Secondary hyperparathyroidism of renal origin; I25.10 Atherosclerotic heart disease of native coronary artery without angina pectoris; E11.22 Type 2 diabetes mellitus with diabetic chronic kidney disease; D63.1 Anemia in chronic kidney disease; M19.90 Unspecified osteoarthritis, unspecified site; K21.9 Gastro-esophageal reflux disease without esophagitis; I48.0 Paroxysmal atrial fibrillation; E78.5 Hyperlipidemia, unspecified; J45.909 Unspecified asthma, uncomplicated; E89.0 Postprocedural hypothyroidism; G25.81 Restless legs syndrome; E78.00 Pure hypercholesterolemia, unspecified; I25.2 Old myocardial infarction; Z79.4 Long term (current) use of insulin; Z85.41 Personal history of malignant neoplasm of cervix uteri; Z86.79 Personal history of other diseases of the circulatory system; Z99.2 Dependence on renal dialysis; Z79.899 Other long term (current) drug therapy; Z99.81 Dependence on supplemental oxygen; Z95.0 Presence of cardiac pacemaker; Z90.710 Acquired absence of both cervix and uterus; Z92.3 Personal history of irradiation; Z98.42 Cataract extraction status, left eye; Z98.41 Cataract extraction status, right eye; Z87.891 Personal history of nicotine dependence; Z88.8 Allergy status to other drugs, medicaments and biological substances; Z88.6 Allergy status to analgesic agent; Z91.041 Radiographic dye allergy status; Z82.3 Family history of stroke; Z83.3 Family history of diabetes mellitus; Z80.9 Family history of malignant neoplasm, unspecified; Z82.49 Family history of ischemic heart disease and other diseases of the circulatory system
CPT/HCPCS: 36415; 71020; 71250; 80048; 80053; 82550; 82553; 82803; 84484; 85025; 87040; 93005; 93010; 94640; 96365; 96372; 96375; 99285; J1644; J1956; J2920; J2930; J3490; J7030; J7512; J7620

== ENCOUNTER → 2016-10-13 | Outpatient (CLI) | payer MEDICARE, MEDICAID | LOC: RAD 12:51 | PROVIDERS: ATTEND Internal Medicine | DX: C64.2 Malignant neoplasm of left kidney, except renal pelvis (principal) | CPT/HCPCS: 71250; 74176 ==

== ENCOUNTER 2016-10-18 05:21 | Day surgery (SDC) | payer MEDICARE, MEDICAID ==
[2016-10-15 12:33] LABS: HEMATOCRIT 26.9 % (36.0-47.0); HEMOGLOBIN 8.8 g/dL (12.0-15.5); HGB HCT DIFFERENCE -0.5; MEAN CORPUSCULAR HEMOGLOBIN 30.6 pg (27.0-33.4); MEAN CORPUSCULAR HGB CONC 32.6 g/dL (32.0-36.0); MEAN CORPUSCULAR VOLUME 94 fl (80-97); RED BLOOD COUNT 2.87 10^6/uL (3.72-5.28); RED CELL DISTRIBUTION WIDTH 15.7 % (11.5-14.0); WHITE BLOOD COUNT 8.5 10^3/uL (4.0-10.5)
[2016-10-15 13:05] LABS: ANION GAP 12 (5-19); BLOOD UREA NITROGEN 24 mg/dL (7-20); CALCIUM 9.4 mg/dL (8.4-10.2); CARBON DIOXIDE 29 mmol/L (22-30); CHLORIDE 100 mmol/L (98-107); CREATININE RESULT 2.48 mg/dL (0.52-1.25); GLUCOSE 140 mg/dL (75-110); POTASSIUM 4.1 mmol/L (3.6-5.0)
--- NOTE | 2016-10-15 19:41 | EKG REPORT ---
SEVERITY:- ABNORMAL ECG - SINUS OR ECTOPIC ATRIAL RHYTHM NONSPECIFIC INTRAVENTRICULAR CONDUCTION DELAY : Confirmed by: Jacqueline Root 15-Oct-2016 19:41:03
[~2016-10-18 05:21] MED LIST: CEFAZOLIN 1 GM/D5W RTU 1 GM/50 ML RTUPB IV PRN; LIDOCAINE 0.5% INJ-PF (5 MG/ML) 50 ML SDV SUBCUT PRN; NORMAL SALINE 1000 ML (RENAL PATIENTS) IV PRN
[2016-10-18 06:22] LABS: POTASSIUM 4.9 mmol/L (3.6-5.0)
[2016-10-18] MEDS ORDERED: BUPIVACAINE HCL 0.25 % INJ/PF (2.5 MG/1 ML) 30 ML VIAL ONE (06:52)
[2016-10-18] MEDS ORDERED: LIDOCAINE 1% INJ-PF (10 MG/ML) 30 ML SDV ONE (06:52)
[2016-10-18] MEDS ORDERED: LIDOCAINE 0.5% INJ-PF (5 MG/ML) 50 ML SDV ONE (06:52)
[2016-10-18] MEDS ORDERED: HEPARIN SODIUM,PORCINE/NS/PF 0 UNIT/0 ML RTUINJ IV ONE (06:52)
[2016-10-18] MEDS ORDERED: HEPARIN SOD (PORCINE) 1,000 UNIT/ML 10 ML VIAL ONE (06:52)
[2016-10-18] MEDS ORDERED: BACITRACIN INJ 50,000 UNIT VIAL ONE (06:53)
[2016-10-18] MEDS ORDERED: KETAMINE HCL INJ 500 MG/10 ML VIAL ONE (07:23)
[2016-10-18] MEDS ORDERED: MIDAZOLAM 2 MG/2 ML INJ ONE (07:24)
[2016-10-18] MEDS ORDERED: FENTANYL CITRATE INJ/PF 100 MCG/2 ML AMPUL ONE (07:24)
[2016-10-18] MEDS ORDERED: DEXMEDETOMIDINE INJ 80 MCG/20 ML VIAL IV ONE (07:25)
[2016-10-18] MEDS ORDERED: PROPOFOL INJ 200 MG/20 ML VIAL IV ONE (07:25)
[2016-10-18] MEDS ORDERED: DIPHENHYDRAMINE HCL 50 MG/ML VIAL IV PRN (07:50)
[2016-10-18] MEDS ORDERED: MORPHINE SULFATE 10 MG/ML INJ IV PRN (07:50)
[2016-10-18] MEDS ORDERED: PROMETHAZINE HCL INJ 25 MG/1 ML VIAL IV PRN ×2 (07:50)
[2016-10-18] MEDS ORDERED: FENTANYL CITRATE INJ/PF 100 MCG/2 ML AMPUL IV PRN ×3 (07:50)
[2016-10-18] MEDS ORDERED: MEPERIDINE HCL/PF INJ 25 MG/1 ML DISP.SYRIN IV PRN (07:50)
[2016-10-18] MEDS ORDERED: OXYCODONE-ACETAMINOPHEN 5-325 MG TABLET PO PRN ×2 (07:50)
--- NOTE | 2016-10-18 10:02 | PDOC DISCHARGE SUMMARY ---
Discharge Summary (SDC) - Discharge Final Diagnosis: #1 malfunctioning arteriovenous fistula left forearm radiocephalic. #2 end-stage renal disease on hemodialysis. #[address] #4 coronary artery disease. #5 COPD. #6 diabetes #7 hypertension. #[address] Date of Surgery: 10/18/16 Discharge Date: 10/18/16 Condition: Poor Treatment or Instructions: #1 activities within moderation encouraged. #2 follow up in my office by appointment in about 1 week. Call for appointment. #3 the wounds covered clean and dry until office visit. #4 hold off on school/work until evaluation in office. #5 may shower in 48 hours, keep operated area as dry as possible. #6 discharge from ambulatory when ASU criteria met. #7 medications per medication reconciliation sheet. #8 Percocet by prescription.. Prescriptions: Oxycodone HCl/Acetaminophen [Percocet 5-325 mg Tablet] 1 tab PO ASDIR PRN #10 tab PRN Reason: Discharge Diet: Other (Comments) - Renal Respiratory Treatments at Home: Deep Breathing/Coughing Discharge Activity: Activity As Tolerated Report the Following to Your Physician Immediately: Shortness of Breath, Fever over 101 Degrees, Unusual Bleeding
--- NOTE | 2016-10-18 10:37 | Operative Report ---
Operative Report DATE OF SURGERY: 10/18/16 PREOPERATIVE DIAGNOSIS: #1 malfunctioning arteriovenous fistula left forearm radiocephalic. #2 end-stage renal disease on hemodialysis. #[address] #4 coronary artery disease. #5 COPD. #6 diabetes. #7 hypertension. # [address] POSTOPERATIVE DIAGNOSIS: #1 malfunctioning arteriovenous fistula left forearm radiocephalic. #2 end-stage renal disease on hemodialysis. #[address] #4 coronary artery disease. #5 COPD. #6 diabetes. #7 hypertension. # [address] OPERATION: Revision, superficial laceration of arteriovenous fistula, left forearm radiocephalic. SURGEON: CAPO ALDRIDGE DRAWER MAKER: none ANESTHESIA: Moderate Sedation TISSUE REMOVED OR ALTERED: Not applicable COMPLICATIONS: None ESTIMATED BLOOD LOSS: 5 mL. INTRAOPERATIVE FINDINGS: Of a functioning arteriovenous fistula, left forearm radiocephalic. Deeply placed about a centimeter beneath the skin. Difficult to palpate. Actual inspection of the vein shows it to be spastic. Ultrasound evaluation shows it to be about 5.8 mm in diameter. Superfucialization seems the best first step. In this complicated, fragile patient I elected to do one procedure this time. She may need angioplasty in future and I have discussed this with her and her with her grandson. Her tissues are indeed frail given her years, comorbidities and use of steroids. After division the fistula was nicely palpable for at least 8 cm. PROCEDURE: After going over the procedure with the patient and her grandson, she was taken to the operating room and positioned supine. The left upper extremity was prepared with chlorhexidine and draped and draped out with sterile linen after appropriate anesthesia. After the universal timeout, in which it was verifyied that the patient received IV antibiotic the procedure commenced. Ultrasound was done of the fistula and the decision made to proceed with revision only at this time and not to do angioplasty. The reason is the patient's fragility and selection of the procedure with the greatest potential ,in my judgment. The ultrasound was used to sketch of the current position of the vein. An incision, 6 cm in length and will was made after obtaining local anesthesia. Once the deep subcutaneous plane was achieved, the subcutaneous tissues tissues were retracted superficially and dissection proceeded laterally to the vein. The vein was dissected out for a distance of 10 cm as measured. Branches were clipped and divided. The superficial fascia was now incised somewhat lateral to the vein thus gaining access to the fatty tissues immediately beneath the skin. The vein was placed in this location and the superficial fascia reapproximated using interrupted sutures of 3-[address] the vein became quite superficial and nicely palpable. The available palpable area is 8 cm. The tissues were now closed. The subcutaneous tissues of the incision were closed using interrupted 3-0 PDS and the skin with a continuous subcutaneous suture of 4-0 Monocryl, reinforced with Steri-Strips. Kerlix applied and the procedure concluded.
[2016-10-18 12:31] VITALS: BP 114/56
[2016-10-18] MEDS ORDERED: METOCLOPRAMIDE HCL INJ/PF 10 MG/2 ML SDV ONE (13:27)
[2016-10-18] MEDS ORDERED: LIDOCAINE 2% INJ-PF (20 MG/ML) 10 ML AMPUL ONE (13:27)
[2016-10-18] MEDS ORDERED: ONDANSETRON HCL INJ/PF 4 MG/2 ML SDV ONE (13:27)
[2016-10-18] MEDS ORDERED: GLYCOPYRROLATE INJ 0.4 MG/2 ML VIAL ONE (13:27)
== END 2016-10-18 11:35 | disposition home or self-care (01) ==
LOC: OROUT 05:21
PROVIDERS: ATTEND Surgery
PROC: 05HM33Z Insertion of Infusion Device into Right Internal Jugular Vein, Percutaneous Approach (ICD-10-PCS; principal; 2016-10-18 07:30)
DX: T82.858A Stenosis of other vascular prosthetic devices, implants and grafts, initial encounter (principal); Y83.2 Surgical operation with anastomosis, bypass or graft as the cause of abnormal reaction of the patient, or of later complication, without mention of misadventure at the time of the procedure; N18.6 End stage renal disease; Z99.2 Dependence on renal dialysis; E11.22 Type 2 diabetes mellitus with diabetic chronic kidney disease; I12.0 Hypertensive chronic kidney disease with stage 5 chronic kidney disease or end stage renal disease; J44.9 Chronic obstructive pulmonary disease, unspecified; E78.00 Pure hypercholesterolemia, unspecified; E03.9 Hypothyroidism, unspecified; Z99.81 Dependence on supplemental oxygen; I25.2 Old myocardial infarction; Z95.0 Presence of cardiac pacemaker; Z79.51 Long term (current) use of inhaled steroids
CPT/HCPCS: 93005; 36415 ×2; 82947; 84132; 85027; 80048; 71010; 93010; 36558; J2250; J3490 ×6; J0690; J1644; J2765; J2405; J2704; J3010

== ENCOUNTER 2016-10-20 09:33 | Day surgery (SDC) | payer MEDICARE, MEDICAID ==
[2016-10-20] MEDS ORDERED: BACITRACIN INJ 50,000 UNIT VIAL IR PRN (10:38)
[2016-10-20] MEDS ORDERED: MIDAZOLAM 2 MG/2 ML INJ ONE (11:15)
[2016-10-20] MEDS ORDERED: FENTANYL CITRATE INJ/PF 100 MCG/2 ML AMPUL ONE (11:15)
[2016-10-20] MEDS ORDERED: LIDOCAINE 0.5% INJ-PF (5 MG/ML) 50 ML SDV ONE (11:35)
[2016-10-20 12:13] LABS: ANION GAP 12 (5-19); BLOOD UREA NITROGEN 62 mg/dL (7-20); CALCIUM 9.1 mg/dL (8.4-10.2); CARBON DIOXIDE 27 mmol/L (22-30); CHLORIDE 103 mmol/L (98-107); CREATININE RESULT 3.33 mg/dL (0.52-1.25); GLUCOSE 219 mg/dL (75-110); POTASSIUM 5.5 mmol/L (3.6-5.0); SODIUM 141.8 mmol/L (137-145)
[2016-10-20] MEDS ORDERED: CEFAZOLIN INJ 1 GM VIAL ONE (12:20)
--- NOTE | 2016-10-20 13:46 | PDOC DISCHARGE SUMMARY ---
Discharge Summary (SDC) - Discharge Final Diagnosis: 1. Malfunctioning PermCath catheter. 2. Arteriovenous fistula left forearm. 3. End-stage renal disease on hemodialysis. 4. Permanent pacemaker in place. 5. Multiple comorbidities. Date of Surgery: 10/20/16 Discharge Date: 10/20/16 Condition: Fair Treatment or Instructions: 1.Discharge patient home when ASU criteria met. 2. Continue medications per medication reconciliation sheet. 3. Leave wound dressings in place per hemodialysis protocol. 4. Follow-up with Dr. Twan Gilliam MD by appointment in office in about 1 week. Discharge Diet: Other (Comments) - Renal Discharge Activity: Activity As Tolerated Report the Following to Your Physician Immediately: Unusual Bleeding
[2016-10-20] MEDS ORDERED: OXYCODONE-ACETAMINOPHEN 5-325 MG TABLET ONE (14:07)
--- NOTE | 2016-10-20 14:42 | Operative Report ---
Operative Report DATE OF SURGERY: 10/20/16 PREOPERATIVE DIAGNOSIS: 1. Malfunctioning permacatheter. 2. Arteriovenous fistula left forearm. 3. End-stage renal disease on hemodialysis. 4. Permanent pacemaker. 5. Multiple comorbidities. POSTOPERATIVE DIAGNOSIS: 1. Malfunctioning permacatheter. 2. Arteriovenous fistula left forearm. 3. End-stage renal disease on hemodialysis. 4. Permanent pacemaker. 5. Multiple comorbidities. OPERATION: 1. Removal of old PermCath catheter. 2. Catheter angiogram. 3. Insertion of new PermCath catheter using same right internal jugular vein. Separate entry site. SURGEON: CAPO ALDRIDGE CIVIL PROJECT ENGINEER: None ANESTHESIA: Moderate Sedation TISSUE REMOVED OR ALTERED: Not applicable. COMPLICATIONS: None ESTIMATED BLOOD LOSS: 5 mL. INTRAOPERATIVE FINDINGS: Angiogram through 7 Divehi sheath shows normal flow through the right atrium. No fibrinous sheath encountered.Good position and function with the tip of the catheter well down in the right atrium. Easy egress of blood and increase of heparinized solution through both ports. PROCEDURE: After obtaining informed consent, the patient was taken to the Postal Transportation Clerk and positioned supine. The right neck and chest were prepared with chlorhexidine and draped out with sterile linen. After the " universal timeout", in which it was verified that the patient continued to receive antibiotic, the procedure commenced. Local anesthesia was infiltrated adjacent to the previous neck scar. Access into the right internal jugular vein was obtained By transecting the catheter and replacing the proximal portion with a 0.035 guidewire.. This was followed by introduction of a 7 Divehi introducer. An angiogram was done done through the introducer which showed the aforementioned findings. . A 23 cm long split catheter was now positioned over the chest and an exit site marked and locally anesthetized ,the catheter was placed between the 2 incisions. Proximally, the catheter was now positioned using a peel-away sheath, after dilation. Easy ingress of heparinized solution and egress of blood obtained through both ports. A completion angiogram was done by injecting contrast. The findings were as dictated. The neck incision was now closed using interrupted 3-0 PDS to the subcutaneous tissues, the catheter was anchored at the exit site using 3-0 PDS. A Biopatch device was now placed adjacent to the catheter. The old catheter was now removed by blunt dissection after obtaining local anesthesia. Dressings were applied and the procedure concluded. Copies of the dictated operative report for Dr. Capo Gillima MD.concluded. Copies of the dictated operative report for Dr. Capo Gilliam MD.
[2016-10-20 15:36] VITALS: BP 122/74
== END 2016-10-20 14:45 | disposition home or self-care (01) ==
LOC: CCL 09:33
PROVIDERS: ATTEND Surgery
PROC: 05H533Z Insertion of Infusion Device into Right Subclavian Vein, Percutaneous Approach (ICD-10-PCS; principal; 2016-10-20)
DX: I12.0 Hypertensive chronic kidney disease with stage 5 chronic kidney disease or end stage renal disease (principal); T82.858A Stenosis of other vascular prosthetic devices, implants and grafts, initial encounter; Y83.2 Surgical operation with anastomosis, bypass or graft as the cause of abnormal reaction of the patient, or of later complication, without mention of misadventure at the time of the procedure; E11.22 Type 2 diabetes mellitus with diabetic chronic kidney disease; N18.6 End stage renal disease; Z99.2 Dependence on renal dialysis; E03.9 Hypothyroidism, unspecified; E78.00 Pure hypercholesterolemia, unspecified; J44.9 Chronic obstructive pulmonary disease, unspecified; Z99.81 Dependence on supplemental oxygen; I25.2 Old myocardial infarction; Z87.891 Personal history of nicotine dependence; Z91.041 Radiographic dye allergy status; Z95.0 Presence of cardiac pacemaker
CPT/HCPCS: 36415; 80048; 36581; 77001; C1752; C1894; Q9967; J2250; J3490 ×2; J0690; J3010; A9270; J1644

== ENCOUNTER 2017-02-21 06:07 | Day surgery (SDC) | payer MEDICARE, MEDICAID ==
[2017-02-21] MEDS ORDERED: MIDAZOLAM 2 MG/2 ML INJ ONE (07:30)
[2017-02-21] MEDS ORDERED: FENTANYL CITRATE INJ/PF 100 MCG/2 ML AMPUL ONE (07:31)
[2017-02-21] MEDS ORDERED: HEPARIN SOD (PORCINE) 5,000 UNIT/ML 1 ML SYRINGE ONE (07:31)
[2017-02-21] MEDS ORDERED: LIDOCAINE 0.5% INJ-PF (5 MG/ML) 50 ML SDV ONE (07:31)
[2017-02-21 07:51] LABS: HEMATOCRIT 37.3 % (36.0-47.0); HEMOGLOBIN 11.9 g/dL (12.0-15.5); HGB HCT DIFFERENCE -1.6; MEAN CORPUSCULAR HEMOGLOBIN 29.3 pg (27.0-33.4); MEAN CORPUSCULAR HGB CONC 31.9 g/dL (32.0-36.0); MEAN CORPUSCULAR VOLUME 92 fl (80-97); RED BLOOD COUNT 4.06 10^6/uL (3.72-5.28); RED CELL DISTRIBUTION WIDTH 18.5 % (11.5-14.0); WHITE BLOOD COUNT 3.6 10^3/uL (4.0-10.5)
[2017-02-21 08:12] LABS: ANION GAP 10 (5-19); BLOOD UREA NITROGEN 22 mg/dL (7-20); CARBON DIOXIDE 26 mmol/L (22-30); CHLORIDE 100 mmol/L (98-107); CREATININE RESULT 2.33 mg/dL (0.52-1.25); GLUCOSE 151 mg/dL (75-110); POTASSIUM 4.9 mmol/L (3.6-5.0); SODIUM 135.8 mmol/L (137-145)
--- NOTE | 2017-02-21 08:45 | PDOC H&P ---
General Chief Complaint: The patient has been noted to have inadequate bruit and function of fistula. She is referred across for angioplasty. - Current Medications/Allergies Home Medications: Albuterol Sulfate [Albuterol Sulfate 2.5mg/3 mL] 2.5 mg IH RTQ6HP PRN 08/23/16 Atorvastatin Calcium [Lipitor 10 mg Tablet] 10 mg PO QHS 08/23/16 Diltiazem HCl [Cardizem Cd 180 mg Capsule] 120 mg PO DAILY 08/23/16 Fluticasone/Salmeterol [Advair 250-50 Diskus 28 dose] 1 inh IH Q12 08/23/16 Furosemide [Lasix 40 mg Tablet] 40 mg PO ASDIR PRN 08/23/16 Latanoprost [Xalatan 0.005% Oph Soln 2.5 ml] 1 drop OU QHS 08/23/16 Montelukast Sodium [Singulair 10 mg Tablet] 10 mg PO QHS 08/23/16 Ropinirole HCl [Requip] 1 mg PO QPM 08/23/16 Magnesium 2 tab PO DAILY 10/15/16 Olopatadine HCl [Pataday] 2.5 ml OP QAM 10/15/16 Tiotropium [place] [Spiriva Respimat] 4 gm IH BID 10/15/16 Diphenhydramine HCl [Benadryl 50 mg Capsule] 50 mg PO ASDIR PRN 02/18/17 Famotidine [Pepcid 20 mg Tablet] 20 mg PO ASDIR PRN 02/18/17 Nitroglycerin [Nitrostat] 0.4 mg SL PRN PRN 02/18/17 Ondansetron HCl [Zofran 4 mg Tablet] 1 - 2 tab PO Q4H PRN 02/18/17 Oxycodone HCl [Oxycontin] 10 mg PO Q4H 02/18/17 Apixaban [Eliquis 2.5 mg Tablet] 2.5 mg PO DAILY 02/21/17 Allergies/Adverse Reactions: morphine Allergy (Intermediate, Verified 10/15/16 12:11) Abnormal behavior Iodinated Contrast- Oral and IV Dye [IV Dye, Iodine Containing] Allergy ( Verified 10/15/16 12:11) iodine [Iodine] Allergy (Verified 10/15/16 12:11) Past Medical History Cardiac Medical History: Reports: Atrial Fibrillation, Congestive Heart Failure , Myocardial Infarction - 2012;PACEMAKER IMPLANTED, Hyperlipidema, Hypertension Denies: Coronary Artery Disease Pulmonary Medical History: Reports: Asthma, Bronchitis, Chronic Obstructive Pulmonary Disease (COPD) - CONTINOUOUS O2 2L NC, Pneumonia Neurological Medical History: Denies: Seizures Endocrine Medical History: Reports: Diabetes Mellitus Type 2, Hypothyroidism Renal/ Medical History: Reports: End Stage Renal Disease - On hemodialysis on Tuesday and Tuesday Malignancy Medical History: Reports: Cervical Cancer, Renal (Kidney) Cancer - Metastatic stage IV on chemotherapy GI Medical History: Reports: Gastroesophageal Reflux Disease, Hiatal Hernia Musculoskeltal Medical History: Reports: Arthritis Psychiatric Medical History: Denies: Depression Hematology: Reports: Anemia Past Surgical History Past Surgical History: Reports: Hysterectomy, Pacemaker, Vascular Surgery - AV grafting, Other - Radiation therapy in February 2012, bilateral cataract surgery Family History Family History: DM, Hypertension Parental Family History Reviewed: No Children Family History Reviewed: No Sibling(s) Family History Reviewed.: No Social History Smoking Status: Unknown if Ever Smoked Frequency of Alcohol Use: None Hx Recreational Drug Use: No Drugs: None Hx Prescription Drug Abuse: No Physical Exam Vital Signs: Temp Pulse Resp BP Pulse Ox 97.7 F 95 20 128/50 H 100 02/21/17 07:33 02/21/17 07:33 02/21/17 07:33 02/21/17 07:33 02/21/17 07:33 Intake & Output 02/20/17 02/21/17 02/22/17 06:59 06:59 06:59 Weight 65.3 kg Additional comments: Constitutional: Well-developed well-nourished lady,. No apparent acute distress. Eyes: Mucous membranes pink and moist, pupils equal and reactive to light. Conjunctiva normal. ENT: Hearing grossly normal. External pinna normal to inspection. Teeth intact. Tongue normal to inspection. Chest: Pacemaker noted. Respiratory breath sounds are present bilaterally, normal. Normal respiratory effort. Skin: Easy bruising. No ulcers, normal turgor. Cardiac: Heart sounds 1 and 2 normal. Psychiatric: Judgment, memory, insight seem normal. Mood is pleasant and appropriate. Extremities: Upper extremities show normal range of movement. Pulses present noted to the radial arteries. Capillary refill normal. No cyanosis noted. No muscle wasting noted. Left forearm arteriovenous fistula, somewhat difficult to auscultate. Easy to palpate wrist with superior fistula tourniquet. Impression/Plan Impression: #1 malfunctioning arteriovenous fistula, left radiocephalic. 2. End-stage renal disease on hemodialysis. 3. Diabetes mellitus type 2. 4. Hypertension. 5. Multiple comorbidities. Plan: The plan is to admit the patient for angiogram possible angioplasty. The risks , benefits, expected outcome and alternatives are familiar to the patient and she is agreeable.
--- NOTE | 2017-02-21 09:56 | PDOC DISCHARGE SUMMARY ---
Discharge Summary (SDC) - Discharge Final Diagnosis: #1 malfunctioning AV fistula left radiocephalic. 2. End-stage renal disease on hemodialysis. 3. Hypertension. 4. Multiple comorbidities. Date of Surgery: 02/21/17 Discharge Date: 02/21/17 Condition: Fair Treatment or Instructions: Discharge home [after recovery per ASU criteria]. Diet , [renal],as tolerated, when fully awake advance as tolerated. Activities within moderation encouraged. Follow up in my office by appointment in about [1 week. Call for appointment. Leave wounds [covered], [keep clean and dry, until hemodialysis]. Hold of on school/work [until evaluation in office]. Medications per medication reconciliation sheet. May shower [in 48 hrs], [try to keep operated area as dry as possible]. Discharge Diet: Other (Comments) - Renal Respiratory Treatments at Home: Deep Breathing/Coughing Discharge Activity: Activity As Tolerated Report the Following to Your Physician Immediately: Shortness of Breath, Unusual Bleeding
--- NOTE | 2017-02-21 10:00 | Operative Report ---
Operative Report DATE OF SURGERY: 02/21/17 PREOPERATIVE DIAGNOSIS: #1 malfunctioning AV fistula left radiocephalic. 2. End-stage renal disease on hemodialysis. 3. Hypertension. 4. Multiple comorbidities. POSTOPERATIVE DIAGNOSIS: #1 malfunctioning AV fistula left radiocephalic. Post angioplasty. 2. End-stage renal disease on hemodialysis. 3. Hypertension. 4. Multiple comorbidities. OPERATION: 1. Evaluation and real-time access in left forearm AV fistula under ultrasound. 2. Angioplasty. 3. Angiogram and interpretation. SURGEON: CAPO ALDRIDGE TOLL LINE INSPECTOR: None ANESTHESIA: Moderate Sedation TISSUE REMOVED OR ALTERED: Not applicable. COMPLICATIONS: None ESTIMATED BLOOD LOSS: 2 mL. INTRAOPERATIVE FINDINGS: A well founded left forearm radiocephalic fistula. Somewhat soft with a decreased bruit. Angiogram demonstrates a reason which is that the inflow problem cephalad is weak and the majority of the infant was actually retrograde from the distal radial artery. The anastomosis was also stenotic about 60% of the adjacent lumen. Much improved after angioplasty. Further improvement would require dedicated angioplasty in the cephalad radial artery. We may have to refer to intervention for this. PROCEDURE: PROCEDURE: After verifying the procedure and having obtained informed consent, the patient's left arm and forearm were prepared with Chlorhexidine and draped out with sterile linen. Local anesthesia infiltrated. Percutaneous access into the fistula ,[retrograde], obtained about [20 cm] from the arteriovenous anastomosis using a micro puncture needle followed by micro puncture wire and then a micro puncture catheter. This was done on ultrasound guidance using real-time access into the vein. Ultrasound was also used to size the vein. Angiogram demonstrated the aforementioned findings. Angioplasty was elected. A 0.035 [place] wire was inserted, and over this, a 6 [place] short introducer was placed, this was followed by a [5] angioplasty balloon . Angioplasty was now done at the distal radial artery just before the anastomosis and over the anastomotic and perianastomotic segment. This was done very carefully and in the up to 10 willy sustained for 1 minute. Hand-held pressure for 10 minutes Completion angiogram demonstrated [satisfactory result]. The instrumentation was now withdrawn over time the pressure for 10 minutes. Dressings applied, procedure concluded. DICTATING PHYSICIAN: CAPO AMIN M.D. cc: CAPO AMIN M.D. ([id number]) >>
[2017-02-21 10:53] VITALS: BP 106/45
--- NOTE | 2017-02-22 08:57 | RADIOLOGY REPORT (SQ) ---
EXAM DESCRIPTION: FISTULAGRAM W/PLASTY COMPLETED DATE/TIME: 02/21/2017 1:26 pm REASON FOR STUDY: T82.858A COMPARISON: 10/20/2016, 07/19/2016 FLUOROSCOPY TIME: 0.9 minutes 9 series of digital angiographic Images saved to PACS LIMITATIONS: None. PROCEDURE: Intra procedural imaging and fluoro for Dr. Gilliam. FINDINGS: Intra procedural imaging and fluoro for Dr. Gilliam IMPRESSION: Intra procedural imaging and fluoro for Dr. Gilliam COMMENT: PQRS [id number]: Fluoroscopy time of the procedure is documented in the report. TECHNICAL DOCUMENTATION: JOB ID: [id number] [employer]- All Rights Reserved
== END 2017-02-21 10:37 | disposition home or self-care (01) ==
LOC: SC 06:07
PROVIDERS: ATTEND Surgery
PROC: 057F3DZ Dilation of Left Cephalic Vein with Intraluminal Device, Percutaneous Approach (ICD-10-PCS; principal; 2017-02-21)
DX: T82.858A Stenosis of other vascular prosthetic devices, implants and grafts, initial encounter (principal); Y83.2 Surgical operation with anastomosis, bypass or graft as the cause of abnormal reaction of the patient, or of later complication, without mention of misadventure at the time of the procedure; I12.0 Hypertensive chronic kidney disease with stage 5 chronic kidney disease or end stage renal disease; N18.6 End stage renal disease; Z99.2 Dependence on renal dialysis; I48.91 Unspecified atrial fibrillation; I25.10 Atherosclerotic heart disease of native coronary artery without angina pectoris; E78.5 Hyperlipidemia, unspecified; J44.9 Chronic obstructive pulmonary disease, unspecified; K44.9 Diaphragmatic hernia without obstruction or gangrene; K21.9 Gastro-esophageal reflux disease without esophagitis; C64.9 Malignant neoplasm of unspecified kidney, except renal pelvis; Z79.51 Long term (current) use of inhaled steroids; Z79.899 Other long term (current) drug therapy; Z88.5 Allergy status to narcotic agent; I25.2 Old myocardial infarction; Z91.041 Radiographic dye allergy status; Z99.81 Dependence on supplemental oxygen; Z85.41 Personal history of malignant neoplasm of cervix uteri; Z95.0 Presence of cardiac pacemaker
CPT/HCPCS: 36415; 85027; 80048; 36902; 76937; 93005; 93010; C1725; C1887; Q9967; C1769; J2250; J1644 ×2; J3010; J3490

== ENCOUNTER → 2017-04-13 | Outpatient (CLI) | payer MEDICARE, MEDICAID ==
--- NOTE | 2017-04-13 13:03 | RADIOLOGY REPORT (SQ) ---
EXAM DESCRIPTION: CT CHEST WITHOUT; CT ABD/PELVIS NO ORAL OR IV COMPLETED DATE/TIME: 04/13/2017 10:26 am; 04/13/2017 10:30 am REASON FOR STUDY: MAL AVE OF L KIDNEY, EXCEPT RENAL PELVIS C64.2 MALIGNANT NEOPLASM OF LEFT KIDNEY, EXCEPT RENAL PELVIS COMPARISON: CT chest 03/09/2014, 06/21/2016, 08/23/2016, 10/13/2016 CT abdomen pelvis 08/21/2015, 10/13/2016 TECHNIQUE: CT scan of the chest performed without intravenous contrast using helical scanning techni que. Images reviewed with lung, soft tissue and bone windows. Reconstructed coronal and sagittal MPR images reviewed. All images stored on PACS. CT scan of the abdomen and pelvis performed without intravenous contrast and withoutoral contrast usi ng helical scanning technique with dynamic intravenous contrast injection. Images reviewed with lung , soft tissue and bone windows. Reconstructed coronal and sagittal MPR images reviewed. All images stored on PACS. All CT scanners at this facility use dose modulation, iterative reconstruction, and/or weight based d osing when appropriate to reduce radiation dose to as low as reasonably achievable (ALARA). [facility]: Dose Right [facility]: CareDose [facility]: Dose Right [facility]: Teradose 4D [facility]: [employer] RADIATION DOSE: Up-to-date CT equipment and radiation dose reduction techniques were employed. CTDIv ol: 4.6 - 5.3 mGy. DLP: 411 mGy-cm. mGy. LIMITATIONS: No technical limitations. FINDINGS: CHEST: AXILLAE: No adenopathy. CHEST WALL: No masses. No subcutaneous air. LUNGS: Patient has multiple long metastatic nodules bilaterally. Overall, decrease in size of the no dules since 10/13/2016. Index lesions are as follows: Left posterior lung base axial image 101, 1.6 x 1.2 cm today (was 2.6 x 2 cm on 10/13/2016). Right middle lobe axial image 83, 7 x 7 mm today (was 9 x 8 mm on 10/13/2016). Stable diffuse scarring and bronchiectasis in the left upper lobe with a stable small spiculated left upper lobe nodule axial image 32 unchanged compared to 2014. There is a small focus of alveolar consolidation in the posterior right upper lobe near the major fis sure on axial image 35, 1 cm in size. Lungs otherwise exhibited hyperinflation and hyperlucency from obstructive disease. PLEURA: No effusions. No calcifications. THYROID: No masses or significant asymmetry. HILAR AND MEDIASTINAL STRUCTURES: No identified masses or abnormal nodes. AORTA AND GREAT VESSELS: No aneurysm. HEART: Heavily calcified [place] coronary arteries. HARDWARE AND LIFELINES: Right jugular central venous dialysis catheter tip in the right atrium BONES: No significant finding. OTHER: No other significant finding. ABDOMEN AND PELVIS: LIVER: Normal size. No masses. No dilated ducts. SPLEEN: Normal size. No focal lesions. PANCREAS: There is a wall stent along the distal common bile duct and pancreatic head which is patent , small amount of air is seen in the left lobe liver bile ducts. No well-circumscribed pancreatic he ad mass is identified. No inflammatory change along the pancreatic body or tail on today's study. GALLBLADDER: There is air in the gallbladder related to the distal common bile duct wall stent. Ther e is a nodule 1 cm in size adherent to the lateral wall of the gallbladder on axial image 24 which co uld be a gallbladder wall polyp/mass or tumefactive sludge. ADRENAL GLANDS: No significant masses or asymmetry. RIGHT KIDNEY AND URETER: No solid masses. Assessment limited by lack of IV contrast. No significant c alcification. No hydronephrosis or hydroureter. LEFT KIDNEY AND URETER: Stable left renal mass, 5.5 x 5.5 cm in size. No cysts. No ureteral stones. No left hydronephrosis AORTA AND VESSELS: No aneurysm. RETROPERITONEUM: No retroperitoneal adenopathy, hemorrhage or masses. APPENDIX: Normal. LARGE AND SMALL BOWEL: No dilatation. No masses. No wall thickening. ABDOMINAL WALL: No hernia or masses. PERITONEAL CAVITY: No free air. No free fluid. No peritoneal implants or masses. PELVIS: Stable calcified 3 x 2.4 cm nodule in the right pelvis adjacent to the iliac vessels. Post h ysterectomy. No pelvic free fluid. No adenopathy. BONES: Osteopenic. Degenerative changes lumbar spine. OTHER: No other significant finding. IMPRESSION: Decrease in size of lung nodules compared to 10/13/2016 Stable left renal mass. Other findings as above. TECHNICAL DOCUMENTATION: JOB ID: [id number] Quality ID # [id number]: Final reports with documentation of one or more dose reduction techniques (e.g., Au tomated exposure control, adjustment of the mA and/or kV according to patient size, use of iterative reconstruction technique) 2010 [employer]- All Rights Reserved
== END ==
LOC: RAD 10:05
PROVIDERS: ATTEND Internal Medicine
DX: C64.2 Malignant neoplasm of left kidney, except renal pelvis (principal)
CPT/HCPCS: 71250; 74176

== ENCOUNTER → 2017-07-20 | Outpatient (CLI) | payer MEDICARE, MEDICAID ==
--- NOTE | 2017-07-20 12:55 | RADIOLOGY REPORT (SQ) ---
EXAM DESCRIPTION: CT CHEST WITHOUT; CT ABD/PELVIS NO ORAL OR IV COMPLETED DATE/TIME: 07/20/2017 9:24 am REASON FOR STUDY: KIDNEY CA C64.2 MALIGNANT NEOPLASM OF LEFT KIDNEY, EXCEPT RENAL PELVIS COMPARISON: CT abdomen pelvis 02/13/2016 CT chest abdomen pelvis 06/21/2016, 10/13/2016, 04/13/2017 TECHNIQUE: CT scan of the chest performed without intravenous contrast using helical scanning techni que. Images reviewed with lung, soft tissue and bone windows. Reconstructed coronal and sagittal MPR images reviewed. All images stored on PACS. CT scan of the abdomen and pelvis performed without intravenous contrast and withoutoral contrast usi ng helical scanning technique with dynamic intravenous contrast injection. Images reviewed with lung , soft tissue and bone windows. Reconstructed coronal and sagittal MPR images reviewed. All images stored on PACS. All CT scanners at this facility use dose modulation, iterative reconstruction, and/or weight based d osing when appropriate to reduce radiation dose to as low as reasonably achievable (ALARA). [facility]: Dose Right [facility]: CareDose [facility]: Dose Right [facility]: Teradose 4D [facility]: [employer] RADIATION DOSE: CT Rad equipment meets quality standard of care and radiation dose reduction techniq ues were employed. CTDIvol: 4.4 - 4.5 mGy. DLP: 389 mGy-cm. mGy. LIMITATIONS: No oral or IV contrast FINDINGS: CHEST: AXILLAE: No adenopathy. CHEST WALL: Stable diffuse enlargement of the left breast. No subcutaneous air. LUNGS: An 8 mm scar is present in the posterior aspect right upper lobe (was 11 mm on 04/13/2017). A 4 mm nodule is present in the right middle lobe (was 7 mm on 04/13/2017). There are multiple less than 7 mm nodules scattered throughout the lungs elsewhere, which are stable. PLEURA: New trace left pleural effusion. THYROID: No masses or significant asymmetry. HILAR AND MEDIASTINAL STRUCTURES: No identified masses or abnormal nodes. AORTA AND GREAT VESSELS: No aneurysm. HEART: No pericardial effusion. Heavily calcified coronary arteries and aortic valve. HARDWARE AND LIFELINES: None. BONES: No significant finding. OTHER: No other significant finding. ABDOMEN AND PELVIS: LIVER: Normal size. No masses. There is a small amount of air within nondilated left intrahepatic du cts and the common bile duct related to a wall stent in the distal common duct/pancreas. SPLEEN: Normal size. No focal lesions. PANCREAS: Wall stent in the pancreatic head. No gross pancreatic masses or peripancreatic inflammato ry change. GALLBLADDER: There is a tear in the gallbladder related to the biliary wall stent. In the lateral wa ll of the gallbladder, a 2 cm soft tissue mass is present, mucosal lesion versus tumefactive sludge. This is similar compared to 04/13/2017 ADRENAL GLANDS: No significant masses or asymmetry. RIGHT KIDNEY AND URETER: No solid masses. Assessment limited by lack of IV contrast. No significant c alcification. No hydronephrosis or hydroureter. LEFT KIDNEY AND URETER: No solid masses. Assessment limited by lack of IV contrast. No significant ca lcification. No hydronephrosis or hydroureter. AORTA AND VESSELS: No aneurysm. RETROPERITONEUM: No retroperitoneal adenopathy, hemorrhage or masses. APPENDIX: Normal. LARGE AND SMALL BOWEL: No dilatation. No masses. No wall thickening. ABDOMINAL WALL: No hernia or masses. PERITONEAL CAVITY: No free air. No free fluid. PELVIS: Post hysterectomy. Stable 3 x 2.4 cm calcified nodule in the right pelvis adjacent to the i liac vessels, coronal image 56.. Normal bladder. BONES: Diffuse degenerative changes lumbar spine OTHER: No other significant finding. IMPRESSION: New trace left pleural effusion. Otherwise, essentially stable CT chest abdomen and pelvis TECHNICAL DOCUMENTATION: JOB ID: [id number] Quality ID # [id number]: Final reports with documentation of one or more dose reduction techniques (e.g., Au tomated exposure control, adjustment of the mA and/or kV according to patient size, use of iterative reconstruction technique) 2010 [employer]- All Rights Reserved
== END ==
LOC: RAD 08:35
PROVIDERS: ATTEND Internal Medicine
DX: C64.2 Malignant neoplasm of left kidney, except renal pelvis (principal); J90 Pleural effusion, not elsewhere classified
CPT/HCPCS: 71250; 74176

== ENCOUNTER → 2017-10-12 | Outpatient (CLI) | payer MEDICARE, MEDICAID ==
--- NOTE | 2017-10-12 10:53 | RADIOLOGY REPORT (SQ) ---
EXAM DESCRIPTION: CT CHEST WITHOUT COMPLETED DATE/TIME: 10/12/2017 10:11 am REASON FOR STUDY: C64.2 MALIGNANT NEOPLASM OF LEFT KIDNEY, EXCEPT RENAL PELVIS C64.2 MALIGNANT NEOP LASM OF LEFT KIDNEY, EXCEPT RENAL PELVIS COMPARISON: 07/20/2017, 04/13/2017, and 10/13/2016. TECHNIQUE: CT scan performed of the chest without intravenous contrast. Images reviewed with lung, soft tissue and bone windows. Reconstructed coronal and sagittal MPR images reviewed. All images st ored on PACS. All CT scanners at this facility use dose modulation, iterative reconstruction, and/or weight based d osing when appropriate to reduce radiation dose to as low as reasonably achievable (ALARA). [facility]: Dose Right [facility]: CareDose [facility]: Dose Right [facility]: Teradose 4D [facility]: [employer] RADIATION DOSE: CT Rad equipment meets quality standard of care and radiation dose reduction techniq ues were employed. CTDIvol: 4.4 - 4.5 mGy. DLP: 384 mGy-cm. mGy. LIMITATIONS: No technical limitations. FINDINGS: LUNGS AND PLEURA: Development of small right pleural effusion. Moderate left pleural effu tien may be slightly larger. Chronic parenchymal scarring throughout the lungs. Calcified granuloma s. Again seen are multiple subcentimeter pulmonary nodules. No noticeable change in size or appeara nce. No new nodules demonstrated. HILAR AND MEDIASTINAL STRUCTURES: No identified masses or abnormal nodes. No obvious aneurysm. HEART AND VASCULAR STRUCTURES: No aneurysm. No pericardial effusion. UPPER ABDOMEN: See separate report of the CT of the abdomen. THYROID AND OTHER SOFT TISSUES: No masses. No adenopathy. BONES: No significant finding. HARDWARE: Pacemaker. OTHER: No other significant findings. IMPRESSION: 1. INTERVAL DEVELOPMENT OF A SMALL RIGHT PLEURAL EFFUSION. MODERATE LEFT PLEURAL EFFUSION MAY BE SLI GHTLY LARGER. 2. CHRONIC SCARRING THROUGHOUT THE LUNGS. MULTIPLE SUBCENTIMETER PULMONARY NODULES APPEAR ESSENTIALL Y UNCHANGED COMPARED TO THE MOST RECENT STUDY. TECHNICAL DOCUMENTATION: JOB ID: [id number] Quality ID # 436: Final reports with documentation of one or more dose reduction techniques (e.g., Au tomated exposure control, adjustment of the mA and/or kV according to patient size, use of iterative reconstruction technique) 2010 [employer]- All Rights Reserved Reading location - IP/workstation name: ON LICENSE OF [facility]
--- NOTE | 2017-10-12 11:22 | RADIOLOGY REPORT (SQ) ---
EXAM DESCRIPTION: CT ABD/PELVIS NO ORAL OR IV COMPLETED DATE/TIME: 10/12/2017 10:11 am REASON FOR STUDY: C64.2 C64.2 MALIGNANT NEOPLASM OF LEFT KIDNEY, EXCEPT RENAL PELVIS COMPARISON: None. TECHNIQUE: CT scan of the abdomen and pelvis performed without intravenous or oral contrast. Images reviewed with lung, soft tissue, and bone windows. Reconstructed coronal and sagittal MPR images revi ewed. All images stored on PACS. All CT scanners at this facility use dose modulation, iterative reconstruction, and/or weight based d osing when appropriate to reduce radiation dose to as low as reasonably achievable (ALARA). [facility]: Dose Right [facility]: CareDose [facility]: Dose Right [facility]: Teradose 4D [facility]: Smart [employer] RADIATION DOSE: mGy. LIMITATIONS: None. FINDINGS: LOWER CHEST: No significant findings. No nodules or infiltrates. NON-CONTRASTED LIVER, SPLEEN, ADRENALS: Evaluation limited by lack of IV contrast. No identified sign ificant masses. Again seen is a stent in the common bile duct. A small amount of biliary air. PANCREAS: No masses. No peripancreatic inflammatory changes. GALLBLADDER: Stable 15 mm faint soft tissue density on the mucosa of the gallbladder. No inflammatory changes to suggest cholecystitis. RIGHT KIDNEY AND URETER: No suspicious masses. Assessment limited by lack of IV contrast. No signif icant calcifications. No hydronephrosis or hydroureter. LEFT KIDNEY AND URETER: Heterogenous mass in the lateral lower kidney with scattered calcifications. Generally unchanged in size and appearance. Current measurements are 5.5 x 5.8 cm, unchanged from t he prior study. Assessment limited by lack of IV contrast. No significant calcifications. No hydr onephrosis or hydroureter. AORTA AND RETROPERITONEUM: No aneurysm. No retroperitoneal masses or adenopathy. BOWEL AND PERITONEAL CAVITY: No obvious masses or inflammatory changes. No free fluid. APPENDIX: Not visualized. PELVIS, BLADDER, AND ABDOMINAL WALL:No abnormal masses. Stable calcified lymph node in the right pel vis. No free fluid. Bladder normal. BONES: No significant findings. OTHER: No other significant finding. IMPRESSION: 1. STABLE APPEARANCE OF THE MASS IN THE LEFT KIDNEY. 2. STABLE FAINT SOFT TISSUE DENSITY IN THE GALLBLADDER WHICH MAY REPRESENT A FOCAL AREA OF SLUDGE JUSTICE SHARLA MUCOSAL LESION. 3. STABLE BILIARY STENT. 4. NO OTHER SIGNIFICANT OR ACUTE PROCESS IN THE ABDOMEN OR PELVIS. COMMENT: Quality ID # 436: Final reports with documentation of one or more dose reduction techniques (e.g., Automated exposure control, adjustment of the mA and/or kV according to patient size, use of iterative reconstruction technique) TECHNICAL DOCUMENTATION: JOB ID: [id number] [employer]- All Rights Reserved Reading location - IP/workstation name: [facility]
== END ==
LOC: RAD 09:58
PROVIDERS: ATTEND Internal Medicine
DX: C64.2 Malignant neoplasm of left kidney, except renal pelvis (principal); J90 Pleural effusion, not elsewhere classified
CPT/HCPCS: 71250; 74176

== ENCOUNTER → 2018-01-30 | Outpatient (CLI) | payer MEDICARE, MEDICAID ==
--- NOTE | 2018-01-30 11:33 | RADIOLOGY REPORT (SQ) ---
EXAM DESCRIPTION: CT CHEST WITHOUT COMPLETED DATE/TIME: 01/30/2018 9:50 am REASON FOR STUDY: KIDNEY CA C64.2 MALIGNANT NEOPLASM OF LEFT KIDNEY, EXCEPT RENAL PELVIS COMPARISON: 10/12/2017 PE multiple priors TECHNIQUE: CT scan performed of the chest without intravenous contrast. Images reviewed with lung, soft tissue and bone windows. Reconstructed coronal and sagittal MPR images reviewed. All images st ored on PACS. All CT scanners at this facility use dose modulation, iterative reconstruction, and/or weight based d osing when appropriate to reduce radiation dose to as low as reasonably achievable (ALARA). [facility]: Dose Right [facility]: CareDose [facility]: Dose Right [facility]: Teradose 4D [facility]: [employer] RADIATION DOSE: mGy. LIMITATIONS: No technical limitations. FINDINGS: LUNGS AND PLEURA: Stable bilateral apical scarring. The interstitial changes seen previou sly have improved significantly. There are now clearly multiple pulmonary nodules present. The larg est is 12 mm in the left upper lobe. Clearly larger than previous. HILAR AND MEDIASTINAL STRUCTURES: No identified masses or abnormal nodes. No obvious aneurysm. HEART AND VASCULAR STRUCTURES: Coronary artery calcification. UPPER ABDOMEN: See separate report of the CT of the abdomen. THYROID AND OTHER SOFT TISSUES: No masses. No adenopathy. BONES: No significant finding. HARDWARE: Cardiac hardware. OTHER: No other significant findings. IMPRESSION: Definite increase in size and number of multiple pulmonary nodules indicating progressiv e metastatic disease. . Clearing of the interstitial changes on left effusion likely related to failure. TECHNICAL DOCUMENTATION: JOB ID: [id number] Quality ID # [id number]: Final reports with documentation of one or more dose reduction techniques (e.g., Au tomated exposure control, adjustment of the mA and/or kV according to patient size, use of iterative reconstruction technique) 2010 [employer]- All Rights Reserved Reading location - IP/workstation name: [email or web address]
--- NOTE | 2018-01-30 11:39 | RADIOLOGY REPORT (SQ) ---
EXAM DESCRIPTION: CT ABD/PELVIS NO ORAL OR IV COMPLETED DATE/TIME: 01/30/2018 9:50 am REASON FOR STUDY: KIDNEY CA C64.2 MALIGNANT NEOPLASM OF LEFT KIDNEY, EXCEPT RENAL PELVIS COMPARISON: 10/12/2017 and multiple priors TECHNIQUE: CT scan of the abdomen and pelvis performed without intravenous or oral contrast. Images reviewed with lung, soft tissue, and bone windows. Reconstructed coronal and sagittal MPR images revi ewed. All images stored on PACS. All CT scanners at this facility use dose modulation, iterative reconstruction, and/or weight based d osing when appropriate to reduce radiation dose to as low as reasonably achievable (ALARA). [facility]: Dose Right [facility]: CareDose [facility]: Dose Right [facility]: Teradose 4D [facility]: Smart [email or web address] RADIATION DOSE: CT Rad equipment meets quality standard of care and radiation dose reduction techniq ues were employed. CTDIvol: 4.4 - 4.5 mGy. DLP: 386 mGy-cm.mGy. LIMITATIONS: None. FINDINGS: LOWER CHEST: See separate report of the CT of the chest. NON-CONTRASTED LIVER, SPLEEN, ADRENALS: Evaluation limited by lack of IV contrast. No identified sign ificant masses. PANCREAS: No masses. No peripancreatic inflammatory changes. GALLBLADDER: Soft tissue in the gallbladder similar to previous. Significant increase in size. Air in the gallbladder related to the stent. Biliary stent unchanged. RIGHT KIDNEY AND URETER: No suspicious masses. Assessment limited by lack of IV contrast. No signif icant calcifications. No hydronephrosis or hydroureter. LEFT KIDNEY AND URETER: Stable left renal mass. Increase in soft tissue along the left renal vein pr esumably metastatic. No significant calcifications. No hydronephrosis or hydroureter. AORTA AND RETROPERITONEUM: No aneurysm. No retroperitoneal masses or adenopathy. BOWEL AND PERITONEAL CAVITY: No obvious masses or inflammatory changes. No free fluid. APPENDIX: Not visualized. PELVIS, BLADDER, AND ABDOMINAL WALL:Stable right lower quadrant calcification. Bladder unremarkable. BONES: No significant findings. OTHER: No other significant finding. IMPRESSION: Stable left renal mass. Soft tissue along the left renal vein likely metastatic. Increasing soft tissue within the gallbladder question sludge or mucosal lesion. Stable biliary stent. COMMENT: Quality ID # [id number]: Final reports with documentation of one or more dose reduction techniques (e.g., Automated exposure control, adjustment of the mA and/or kV according to patient size, use of iterative reconstruction technique) TECHNICAL DOCUMENTATION: JOB ID: [id number] [employer]- All Rights Reserved Reading location - IP/workstation name: [email or web address]
== END ==
LOC: RAD 09:45
PROVIDERS: ATTEND Internal Medicine
DX: C64.2 Malignant neoplasm of left kidney, except renal pelvis (principal)
CPT/HCPCS: 71250; 74176

== ENCOUNTER → 2018-06-14 | Outpatient (CLI) | payer MEDICARE, MEDICAID ==
--- NOTE | 2018-06-14 10:36 | RADIOLOGY REPORT (SQ) ---
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 Images reviewed with lung, soft tissue and bone windows. Reconstructed coronal and sagittal MPR images reviewed. All images stored on PACS. CT scan of the abdomen and pelvis performed without intravenous contrast and withoutoral contrast usi ng helical scanning technique with dynamic intravenous contrast injection. Images reviewed with lung , soft tissue and bone windows. Reconstructed coronal and sagittal MPR images reviewed. All images stored on PACS. All CT scanners at this facility use dose modulation, iterative reconstruction, and/or weight based d osing when appropriate to reduce radiation dose to as low as reasonably achievable (ALARA). [facility]: Dose Right [facility]: CareDose [facility]: Dose Right [facility]: Teradose 4D [facility]: Smart [employer] RADIATION DOSE: CT Rad equipment meets quality standard of care and radiation dose reduction techniq ues were employed. CTDIvol: 4.4 - 4.5 mGy. DLP: 395 mGy-cm. mGy. LIMITATIONS: No technical limitations. FINDINGS: CHEST: LUNGS AND PLEURA: Decrease in size of the multiple pulmonary nodules compared to 01/30/2018 as follows : 10 mm nodule left upper lobe axial image 29/137 (was 12 mm diameter 01/30/2018). 6 mm left upper lobe nodule axial image 30/137 (was 8 mm diameter 01/30/2018). 4 mm left lower lobe nodule axial image 59/137 (was 9 mm 01/30/2018). Remainder of the lungs demonstrates stable bandlike bilateral upper lobe scarring left greater than r ight, enlarged airspaces from obstructive disease, and multiple smooth round calcified and noncalcifi ed less than 5 mm nodules scattered throughout the lung parenchyma, stable or smaller than on previou s studies. HEART AND VASCULAR STRUCTURES: Heavily calcified coronary arteries and mitral annulus. Left-sided du al lead pacemaker HARDWARE AND LIFELINES: Left-sided dual lead pacemaker BONES: Old healed left rib fractures. Degenerative disc changes thoracic spine OTHER: Stable diffuse enlargement of the left breast, with breast skin thickening. ABDOMEN AND PELVIS: LIVER: Normal size. Air in left-sided intrahepatic ducts from distal common duct wall stent. SPLEEN: Normal size. No focal lesions. PANCREAS: Distal common duct wall stent present, unchanged. No pancreatic masses or peripancreatic i nflammation GALLBLADDER: Cholecystostomy tube is present, with the pigtail loop in the gallbladder fundus, transh epatic approach. Small amount of air in the gallbladder lumen. No surrounding inflammation ADRENAL GLANDS: No significant masses or asymmetry. RIGHT KIDNEY AND URETER: No solid masses. Assessment limited by lack of IV contrast. No significant calcifications. No hydronephrosis or hydroureter. LEFT KIDNEY AND URETER: Stable left lower pole mass, measuring about 6.5 x 5.2 cm on axial image 35/8 3. Mild stable left para-aortic adenopathy along the left renal artery. No significant calcificatio ns. No hydronephrosis or hydroureter. AORTA AND VESSELS: No aneurysm. RETROPERITONEUM: Left renal mass with fullness along the left renal hilum from adenopathy, stable. APPENDIX: Normal. LARGE AND SMALL BOWEL: No dilatation. No masses. No wall thickening. No oral contrast. No gross e vidence of bowel obstruction. ABDOMINAL WALL: No hernia or masses. PERITONEAL CAVITY: No free air. No free fluid. No peritoneal implants or masses. PELVIS: No mass or free fluid. Normal bladder. BONES: No significant or acute findings. OTHER: No other significant finding. IMPRESSION: Decrease in size of lung metastatic lesions at the left upper lobe compared to 01/30/2018 . Stable left lower pole renal mass with stable mild adenopathy along the left renal artery and vein. Interval placement of a cholecystostomy tube. Unchanged biliary distal common duct wall stent. NORMAL CT OF THE ABDOMEN AND PELVIS WITHOUT INTRAVENOUS CONTRAST. TECHNICAL DOCUMENTATION: JOB ID: [id number] Quality ID # [id number]: Final reports with documentation of one or more dose reduction techniques (e.g., Au tomated exposure control, adjustment of the mA and/or kV according to patient size, use of iterative reconstruction technique) 2010 [employer]- All Rights Reserved Reading location - IP/workstation name: [email or web address]
== END ==
LOC: RAD 09:10
PROVIDERS: ATTEND Internal Medicine
DX: C64.2 Malignant neoplasm of left kidney, except renal pelvis (principal); C78.02 Secondary malignant neoplasm of left lung
CPT/HCPCS: 71250; 74176

== ENCOUNTER → 2018-10-09 | Outpatient (CLI) | payer MEDICARE, MEDICAID ==
--- NOTE | 2018-10-09 10:11 | RADIOLOGY REPORT (SQ) ---
EXAM DESCRIPTION: CT CHEST WITHOUT; CT ABD/PELVIS NO ORAL OR IV COMPLETED DATE/TIME: 10/09/2018 8:28 am REASON FOR STUDY: KIDNEY CA (C64.1) C64.1 MALIGNANT NEOPLASM OF RIGHT KIDNEY, EXCEPT RENAL PELVI COMPARISON: CT chest abdomen pelvis 06/14/2018, 01/30/2018, 10/12/2017, 10/13/2016, 06/21/2016 TECHNIQUE: CT scan of the chest performed without intravenous contrast using helical scanning techni que. Images reviewed with lung, soft tissue and bone windows. Reconstructed coronal and sagittal MPR images reviewed. All images stored on PACS. CT scan of the abdomen and pelvis performed without intravenous contrast and withoutoral contrast usi ng helical scanning technique with dynamic intravenous contrast injection. Images reviewed with lung , soft tissue and bone windows. Reconstructed coronal and sagittal MPR images reviewed. All images stored on PACS. All CT scanners at this facility use dose modulation, iterative reconstruction, and/or weight based d osing when appropriate to reduce radiation dose to as low as reasonably achievable (ALARA). [facility]: Dose Right [facility]: CareDose [facility]: Dose Right [facility]: Teradose 4D [facility]: Smart [employer] RADIATION DOSE: CT Rad equipment meets quality standard of care and radiation dose reduction techniq ues were employed. CTDIvol: 4.4 - 4.5 mGy. DLP: 381 mGy-cm. mGy. LIMITATIONS: No technical limitations. FINDINGS: CHEST: AXILLAE: No adenopathy. CHEST WALL: Stable asymmetric diffuse left breast enlargement and skin thickening compared to the rig ht. This finding is stable over the series exams LUNGS AND PLEURA: Further decrease in size of pulmonary nodules as follows: 3 mm nodule left upper lobe axial image 29 (was 10 mm on 06/14/2018). 6 mm left upper lobe nodule axial image 31 (was 6 mm on 06/14/2018). A 4 mm nodule seen in the right lower lobe on 06/14/2018 has resolved on today's study. Stable bandlike scarring is present in the bilateral upper lobes left greater than right. Multiple s table less than 5 mm noncalcified nodules peripherally in both lungs, with stable COPD. No acute infiltrates. No pleural effusions. No pneumothorax. THYROID: No masses or significant asymmetry. HILAR AND MEDIASTINAL STRUCTURES: No identified masses or abnormal nodes. AORTA AND GREAT VESSELS: No aneurysm. HEART: No pericardial effusion. Heavily calcified coronary arteries and mitral valve HARDWARE AND LIFELINES: Left-sided pacemaker BONES: No significant finding. OTHER: No other significant finding. ABDOMEN AND PELVIS: LIVER: Normal size. No masses. No dilated ducts. SPLEEN: Normal size. No focal lesions. PANCREAS: No masses. No significant calcifications. No adjacent inflammation or peripancreatic flui d collections. Pancreatic duct not dilated. GALLBLADDER: Cholecystostomy tube is still present. Patient's distal common bile duct wall stent is no longer present. ADRENAL GLANDS: No significant masses or asymmetry. RIGHT KIDNEY AND URETER: No solid masses. Assessment limited by lack of IV contrast. No significant calcifications. No hydronephrosis or hydroureter. LEFT KIDNEY AND URETER: Stable 6.5 x 5.2 cm mass left lower pole kidney. No significant calcificati ons. No hydronephrosis or hydroureter. AORTA AND VESSELS: Heavily calcified abdominal aorta without aneurysm. Heavily calcified origins of the visceral vessels. RETROPERITONEUM: No retroperitoneal adenopathy, hemorrhage or masses. APPENDIX: Normal. LARGE AND SMALL BOWEL: No dilatation. No masses. No wall thickening. ABDOMINAL WALL: No hernia or masses. PERITONEAL CAVITY: No free air. No free fluid. No peritoneal implants or masses. PELVIS: No mass or free fluid. Normal bladder. Post hysterectomy BONES: No significant or acute findings. OTHER: No other significant finding. IMPRESSION: Treatment response, further decrease in size of lung nodules compared to 06/14/2018. Unchanged left lower lobe renal mass Cholecystostomy tube still present TECHNICAL DOCUMENTATION: JOB ID: [id number] Quality ID # [id number]: Final reports with documentation of one or more dose reduction techniques (e.g., Au tomated exposure control, adjustment of the mA and/or kV according to patient size, use of iterative reconstruction technique) 2010 [employer]- All Rights Reserved Reading location - IP/workstation name: [email or web address]
== END ==
LOC: RAD 07:09
PROVIDERS: ATTEND Internal Medicine
DX: C64.1 Malignant neoplasm of right kidney, except renal pelvis (principal); J44.9 Chronic obstructive pulmonary disease, unspecified; R91.8 Other nonspecific abnormal finding of lung field
CPT/HCPCS: 71250; 74176

== ENCOUNTER → 2019-02-06 | Outpatient (CLI) | payer MEDICARE, MEDICAID | LOC: PNR 16:29 | PROVIDERS: ATTEND Family Medicine | DX: C73 Malignant neoplasm of thyroid gland (principal) | CPT/HCPCS: 84436; 84443 ==

== ENCOUNTER 2019-02-13 09:02 | Emergency (ER) | payer MEDICARE, MEDICAID ==
--- NOTE | 2019-02-13 10:41 | ER Document Report ---
ED GI/ - General Chief Complaint: Wound Recheck Stated Complaint: ABDOMINAL PAIN Time Seen by Provider: 02/13/19 10:19 Primary Care Provider: PEPPER MCLEOD MD [Primary Care Provider] - Follow up as needed Notes: Patient says that she was at dialysis today and when she stood up to sit in the dialysis chair, a tube which she has draining her gallbladder in the right upper quadrant of her abdomen came out and fell to the floor. Patient says that she had that tube placed about a year ago at [facility]. She was told then she had gallstones but was too sick to have her gallbladder removed. The tube has been draining well ever since her surgery a year ago. She says it was checked by the doctors down there in July and working fine. She says that there was some pain in the right upper quadrant over this past weekend. Tube has never come out before. Patient says the tube has been actively draining. Did not have any blood. She has some nausea but not vomiting. No change in her bowel habits. No fevers. Patient is a dialysis patient on Tuesday, , Tuesday. Her last dialysis was Tuesday. Patient has a history of thyroid cancer and kidney cancer. TRAVEL OUTSIDE OF THE [place] IN LAST 30 DAYS: No - Related Data Allergies/Adverse Reactions: morphine Allergy (Intermediate, Verified 10/15/16 12:11) Abnormal behavior Iodinated Contrast- Oral and IV Dye [IV Dye, Iodine Containing] Allergy (Veri fied 10/15/16 12:11) iodine [Iodine] Allergy (Verified 10/15/16 12:11) Past Medical History - Social History Smoking Status: Never Smoker Chew tobacco use (# tins/day): No Frequency of alcohol use: None Drug Abuse: None Lives with: [facility] - Lives at [place]. Family History: Reviewed & Not Pertinent, DM, Hypertension Patient has suicidal ideation: No Patient has homicidal ideation: No - Past Medical History Cardiac Medical History: Reports: Hx Atrial Fibrillation, Hx Congestive Heart Failure, Hx Heart Attack - 2011;PACEMAKER IMPLANTED, Hx Hypercholesterolemia, Hx Hypertension, Other - History of pacemaker. Pulmonary Medical History: Reports: Hx Asthma, Hx Bronchitis, Hx COPD - CONTINOUOUS O2 2L NC, Hx Pneumonia Endocrine Medical History: Reports: Hx Diabetes Mellitus Type 2, Hx Hypothyroidism Renal/ Medical History: Reports: Hx End Stage Renal Disease - On hemodialysis on Tuesday and Tuesday, Hx Renal Insufficiency Malignancy Medical History: Reports: Hx Cervical Cancer, Hx Renal (Kidney) Cancer - Metastatic stage IV on chemotherapy, Other - History of thyroid cancer. GI Medical History: Reports: Hx Gastroesophageal Reflux Disease, Hx Hiatal Hernia Musculoskeletal Medical History: Reports Hx Arthritis Past Surgical History: Reports: Hx Cardiac Surgery - pacemaker, Hx Hysterectomy, Hx Pacemaker, Hx Vascular Surgery - AV grafting, Other - Radiation therapy in February 2012, bilateral cataract surgery - Immunizations Hx Diphtheria, Pertussis, Tetanus Vaccination: Yes Hx Pneumococcal Vaccination: 08/08/11 Review of Systems - Review of Systems Notes: REVIEW OF SYSTEMS: CONSTITUTIONAL : Denies fever. Awake, alert, and oriented x3. EENT: Denies eye, ear, nose or mouth or throat pain or other symptoms. CARDIOVASCULAR: Denies chest pain. RESPIRATORY: Denies cough, chest congestion, or shortness of breath. GASTROINTESTINAL: Pain around the opening in the right upper quadrant of the patient's abdomen. Bandage present, but not draining at this moment. Patient says she has had some nausea but not vomiting. No change in her bowel habits. GENITOURINARY: Denies difficulty or painful urinating, urinary frequency, blood in urine. MUSCULOSKELETAL: Denies back or neck pain. Denies joint pain or swelling. SKIN: Denies rash or skin lesions. NEUROLOGICAL: Denies LOC or altered mental status. Denies headache. Denies sensory loss or motor deficits. ALL OTHER SYSTEMS REVIEWED AND NEGATIVE. Physical Exam - Vital signs Vitals: Pulse Ox 100 02/13/19 09:11 Interpretation: Normal Notes: PHYSICAL EXAMINATION: GENERAL: Well-appearing, in no acute distress. Vital signs are all normal. Afebrile. Patient is very pleasant and very informative and answers questions appropriately. HEAD: Atraumatic, normocephalic. EYES: Pupils equal round and reactive to light, extraocular movements intact. ENT: oropharynx clear without exudates. Moist mucous membranes. NECK: Normal range of motion, supple. LUNGS: Breath sounds clear and equal bilaterally. HEART: Regular rate and rhythm without murmurs. ABDOMEN: Patient has some tenderness around the site where the tube inserts in the upper right quadrant of the abdomen. Otherwise abdomen is soft, nontender. No guarding or rebound. No masses. BACK: No tenderness throughout entire back. EXTREMITIES: Normal range of motion without pain. NEUROLOGICAL: Normal speech, normal gait. Normal sensory, motor, and reflex exams. Awake, alert, and oriented x3. Cranial nerves normal. PSYCH: Normal mood, normal affect. SKIN: Warm, dry, no rashes. Course - Re-evaluation Re-evalutation: 02/13/19 10:[address] Rob, who requested labs and CT scan and he will see the patient. 02/13/19 18:17 Patient was evaluated by Dr. Rob, surgeon gas substation operator, and he says that he would not replace the tube unless there is a change in the patient's condition. He feels that the HIDA scan indicates the gallbladder function to be normal and that patient does not need to have the tube replaced he recommends that the patient follow-up with her surgeons in [place] who did her procedure. Patient was able to be dialyzed in the emergency department and with no complications, she will be discharged back to [place] where she resides. - Vital Signs Vital signs: Temp Pulse Resp BP Pulse Ox 98.6 F 13 103/40 L 98 02/13/19 09:26 02/13/19 12:00 02/13/19 11:01 02/13/19 12:00 - Laboratory Result Diagrams: 02/13/19 10:50 02/13/19 10:50 Laboratory results interpreted by me: 02/13/19 02/13/19 02/13/19 10:50 10:50 10:50 RBC 3.08 L Hgb 10.0 L Hct 31.1 L MCV 101 H RDW 18.5 H Monocytes % 13.1 H PT 16.0 H Sodium 133.4 L Potassium 6.4 H* Chloride 96 L BUN 52 H Creatinine 6.98 H Est GFR ( Amer) 7 L Est GFR (Non-Af Amer) 6 L Calcium 8.3 L Lipase 17.4 L Discharge - Discharge Clinical Impression: End stage renal disease on dialysis, Dislodged drainage tube Condition: Stable Disposition: HOME, SELF-CARE Additional Instructions: Dislodged drainage tube. The drainage tube in your bile duct has been dislodged. You have been evaluated by our our surgeon gas substation operator who does not feel that the tube needs to be replaced. He recommends following up with her surgeons in [place] for reevaluation, as needed. Patient required dialysis, but it is felt that she is safe to be discharged back to [place] now. FOLLOW-UP CARE: If you have been referred to a physician for follow-up care, call the physicians office for an appointment as you were instructed or within the next two days. If you experience worsening or a significant change in your symptoms, notify the physician immediately or return to the Emergency Department at any time for re-evaluation. Referrals: PEPPER MCLEOD MD [Primary Care Provider] - Follow up as needed
[2019-02-13 11:08] LABS: ABSOLUTE BASOPHILS # (AUTO) 0.1 10^3/uL (0.0-0.2); ABSOLUTE EOSINOPHILS # (AUTO) 0.3 10^3/uL (0.0-0.6); ABSOLUTE LYMPHOCYTES (AUTO) 1.1 10^3/uL (0.5-4.7); ABSOLUTE MONOCYTES (AUTO) 0.6 10^3/uL (0.1-1.4); ABSOLUTE NEUT (AUTO) 2.7 10^3/uL (1.7-8.2); BASOPHILS % (AUTO) 1.3 % (0-2); EOSINOPHILS % (AUTO) 5.9 % (0-6); HEMATOCRIT 31.1 % (36.0-47.0); LYMPHOCYTES % (AUTO) 23.6 % (13-45); MEAN CORPUSCULAR HEMOGLOBIN 32.4 pg (27.0-33.4); MEAN CORPUSCULAR VOLUME 101 fl (80-97); MONOCYTES % (AUTO) 13.1 % (3-13); PLATELET COUNT 232 10^3/uL (150-450); RED BLOOD COUNT 3.08 10^6/uL (3.72-5.28); RED CELL DISTRIBUTION WIDTH 18.5 % (11.5-14.0); SEGMENTED NEUTROPHILS % (AUTO) 56.1 % (42-78); TOTAL CELLS COUNTED % (AUTO) 100 %; WHITE BLOOD COUNT 4.8 10^3/uL (4.0-10.5)
--- NOTE | 2019-02-13 11:32 | RADIOLOGY REPORT (SQ) ---
EXAM DESCRIPTION: CT ABDOMEN NO ORAL OR IV COMPLETED DATE/TIME: 02/13/2019 11:19 am REASON FOR STUDY: Drainage catheter gallbladder RUQ came out this AM COMPARISON: CT abdomen pelvis 10/09/2018, 06/24/2018, 01/30/2018 TECHNIQUE: CT scan of the abdomen performed without intravenous contrast and without oral contrast. Images reviewed with lung, soft tissue, and bone windows. Reconstructed coronal and sagittal MPR im ages reviewed. All images stored on PACS. All CT scanners at this facility use dose modulation, iterative reconstruction, and/or weight based d osing when appropriate to reduce radiation dose to as low as reasonably achievable (ALARA). [facility]: Dose Right [facility]: CareDose [facility]: Dose Right [facility]: Teradose 4D [facility]: [employer] RADIATION DOSE: CT Rad equipment meets quality standard of care and radiation dose reduction techniq ues were employed. CTDIvol: 3.3 mGy. DLP: 103 mGy-cm.mGy. LIMITATIONS: None. FINDINGS: LOWER CHEST: There are trace pleural effusions with minimal bibasilar atelectasis. Pneumo elaine could not be excluded. NONCONTRASTED LIVER, SPLEEN, ADRENALS: Patient had a cholecystostomy tube placed at an outside [facility] prior to 06/14/2018 CT abdomen pelvis. The catheter became dislodged today. There is no right upper quadrant hematoma. Tiny air bubble at the adriano hepatis. Gallbladder is thick walled on axial image 30 without gross evidence of stones. No pericholecystic fluid. Findings discussed with Dr. Darius riggs . Spleen, adrenal glands unremarkable. PANCREAS: No masses. No peripancreatic inflammatory changes. GALLBLADDER: As above RIGHT KIDNEY AND URETER: No suspicious masses. Assessment limited by lack of IV contrast. No signif icant calcifications. No hydronephrosis or hydroureter. LEFT KIDNEY AND URETER: Persistent left lower pole renal mass with calcifications, 6.5 x 5.5 cm in si ze. No hydronephrosis or hydroureter. AORTA AND RETROPERITONEUM: Calcified abdominal aorta without aneurysm BOWEL AND PERITONEAL CAVITY: No obvious masses or inflammatory changes. No free fluid. APPENDIX: Not in the field of view ABDOMINAL WALL: No abdominal wall hernias. BONES: No significant findings. OTHER: No other significant finding. IMPRESSION: Inadvertent removal of the patient's cholecystostomy tube earlier today. No right uppe r quadrant hematoma. Thick-walled gallbladder. Findings discussed with the emergency room attending physician TECHNICAL DOCUMENTATION: JOB ID: [id number] Quality ID # [id number]: Final reports with documentation of one or more dose reduction techniques (e.g., Au tomated exposure control, adjustment of the mA and/or kV according to patient size, use of iterative reconstruction technique) 2010 [employer]- All Rights Reserved Reading location - IP/workstation name: [email or web address]
[2019-02-13 11:39] LABS: ALANINE AMINOTRANSFERASE 12 U/L (9-52); ALBUMIN 3.8 g/dL (3.5-5.0); ALKALINE PHOSPHATASE 62 U/L (38-126); AMYLASE 47 U/L (30-110); ANION GAP 12 (5-19); ASPARTATE AMINO TRANSFERASE 19 U/L (14-36); BILIRUBIN,DIRECT 0.4 mg/dL (0.0-0.4); BILIRUBIN,TOTAL 0.4 mg/dL (0.2-1.3); BLOOD UREA NITROGEN 52 mg/dL (7-20); CALCIUM 8.3 mg/dL (8.4-10.2); CARBON DIOXIDE 25 mmol/L (22-30); CHLORIDE 96 mmol/L (98-107); GLUCOSE 97 mg/dL (75-110); LIPASE 17.4 U/L (23-300); SODIUM 133.4 mmol/L (137-145); TOTAL PROTEIN 6.4 g/dL (6.3-8.2)
[2019-02-13 11:40] LABS: POTASSIUM 6.4 mmol/L (3.6-5.0)
[2019-02-13 12:03] LABS: INTERNATIONAL RATION (INR) 1.27
--- NOTE | 2019-02-13 15:09 | RADIOLOGY REPORT (SQ) ---
EXAM DESCRIPTION: NM HIDA SCAN COMPLETED DATE/TIME: 02/13/2019 2:58 pm REASON FOR STUDY: PATENCY OF DUCTS COMPARISON: CT abdomen pelvis same date RADIONUCLIDE AND DOSE: DOSAGE RADIONUCLIDE: 5.3 millicuries Tc99m Mebrofenin. DOSAGE MORPHINE: Not required. The route of agent administration: Intravenous TECHNIQUE: Serial imaging right upper quadrant up to 60 minutes following injection of radionuclide. Patient imaged AP and Right Lateral. LIMITATIONS: None. FINDINGS: LIVER: Normal visualization. INTRA-HEPATIC BILE DUCTS: Normal visualization. COMMON BILE DUCT: Normal visualization. GALLBLADDER: Normal visualization. OTHER: No ectopic accumulation of hepatobiliary agent worrisome for bile leak along the right lobe li greg. Findings discussed with Dr. Rob IMPRESSION: NORMAL STUDY WITHOUT CYSTIC OR COMMON DUCT OBSTRUCTION. NO EVIDENCE OF BILE LEAK TECHNICAL DOCUMENTATION: JOB ID: [id number] [employer]- All Rights Reserved Reading location - IP/workstation name: [email or web address]
--- NOTE | 2019-02-13 15:33 | PDOC CONSULTATION ---
Consultation Consult Date: 02/13/19 Provider Consulted: MARY GOMEZ History of Present Illness Admission Date/PCP: PEPPER MCLEOD MD Patient complains of: Cholecystostomy tube falling out History of Present Illness: KATHERINE RAWLS is a 83 year old female with cholecystostomy tube that had been placed since last year. Her apparent cholecystitis at that time was treated in this fashion due to concerns about her multiple medical problems posing too high of a surgical risk. She noted some intermittent drainage from the tube at times up to couple 100 cc in a day. She noted that the tube stopped draining altogether yesterday followed by pain at the tube exit site. Early this morning when she stood up the tube completely fell out. She has some pain at the tube exit site but no abdominal pain. No nausea or vomiting although she does have some reflux symptoms. No fever. She feels well otherwise. Patient apparently had choledocholithiasis that was treated with ERCP and stent which was eventually removed. Past Medical History Cardiac Medical History: Reports: Atrial Fibrillation, Congestive Heart Failure, Myocardial Infarction - 2011;PACEMAKER IMPLANTED, Hyperlipidema, Hypertension, Other - History of pacemaker. Pulmonary Medical History: Reports: Asthma, Bronchitis, Chronic Obstructive Pulmonary Disease (COPD) - CONTINOUOUS O2 2L NC, Pneumonia Neurological Medical History: Denies: Seizures Endocrine Medical History: Reports: Diabetes Mellitus Type 2, Hypothyroidism Renal/ Medical History: Reports: End Stage Renal Disease - On hemodialysis on Tuesday and Tuesday Malignancy Medical History: Reports: Cervical Cancer, Renal (Kidney) Cancer - Metastatic stage IV on chemotherapy, Other - History of thyroid cancer. GI Medical History: Reports: Gastroesophageal Reflux Disease, Hiatal Hernia, Other - Cholecystitis and choledocholithiasis in the past Musculoskeltal Medical History: Reports: Arthritis Hematology: Reports: Anemia Past Surgical History Past Surgical History: Reports: Hysterectomy, Pacemaker, Vascular Surgery - AV grafting, Other - Radiation therapy in February 2012, bilateral cataract surgery Social History Lives with: Detention - [facility]. Smoking Status: Never Smoker Frequency of Alcohol Use: None Hx Recreational Drug Use: No Drugs: None Hx Prescription Drug Abuse: No Family History Family History: Reviewed & Not Pertinent, DM, Hypertension Parental Family History Reviewed: No Children Family History Reviewed: No Sibling(s) Family History Reviewed.: No Medication/Allergy Home Medications: Albuterol Sulfate [Albuterol Sulfate 2.5mg/3 mL] 2.5 mg IH RTQ6HP PRN 08/23/16 Atorvastatin Calcium [Lipitor 10 mg Tablet] 10 mg PO QHS 08/23/16 Diltiazem HCl [Cardizem Cd 180 mg Capsule] 120 mg PO DAILY 08/23/16 Fluticasone/Salmeterol [Advair 250-50 Diskus 28 dose] 1 inh IH Q12 08/23/16 Furosemide [Lasix 40 mg Tablet] 40 mg PO ASDIR PRN 08/23/16 Latanoprost [Xalatan 0.005% Oph Soln 2.5 ml] 1 drop OU QHS 08/23/16 Montelukast Sodium [Singulair 10 mg Tablet] 10 mg PO QHS 08/23/16 Ropinirole HCl [Requip] 1 mg PO QPM 08/23/16 Levothyroxine Sodium [Synthroid 0.05 mg Tablet] 0.05 mg PO Q6AM #30 tablet 08/30/16 Prednisone [Deltasone 20 mg Tablet] 10 mg PO DAILY #39 tablet 08/30/16 Magnesium 2 tab PO DAILY 10/15/16 Olopatadine HCl [Pataday] 2.5 ml OP QAM 10/15/16 Tiotropium [place] [Spiriva Respimat] 4 gm IH BID 10/15/16 Diphenhydramine HCl [Benadryl 50 mg Capsule] 50 mg PO ASDIR PRN 02/18/17 Famotidine [Pepcid 20 mg Tablet] 20 mg PO ASDIR PRN 02/18/17 Nitroglycerin [Nitrostat] 0.4 mg SL PRN PRN 02/18/17 Ondansetron HCl [Zofran 4 mg Tablet] 1 - 2 tab PO Q4H PRN 02/18/17 Oxycodone HCl [Oxycontin] 10 mg PO Q4H 02/18/17 Apixaban [Eliquis 2.5 mg Tablet] 2.5 mg PO DAILY 02/21/17 Allergies/Adverse Reactions: morphine Allergy (Intermediate, Verified 10/15/16 12:11) Abnormal behavior Iodinated Contrast- Oral and IV Dye [IV Dye, Iodine Containing] Allergy (Verified 10/15/16 12:11) iodine [Iodine] Allergy (Verified 03/10/17 12:11) Physical Exam Vital Signs: Temp Pulse Resp BP Pulse Ox 98.6 F 13 103/40 L 98 02/13/19 09:26 02/13/19 12:00 02/13/19 11:01 02/13/19 12:00 Intake & Output 02/12/19 02/13/19 02/14/19 06:59 06:59 06:59 Weight 49.5 kg General appearance: PRESENT: no acute distress, cooperative Respiratory exam: PRESENT: wheezes - On the left side Cardiovascular exam: PRESENT: RRR GI/Abdominal exam: PRESENT: other - Soft, nondistended, nontender to palpation other than right at the pre-existing cholecystostomy tube exit wound site in the right subcostal region. There is exit wound has no drainage. Neurological exam: PRESENT: alert, awake Psychiatric exam: PRESENT: appropriate affect Results Laboratory Results: 02/13/19 10:50 02/13/19 10:50 02/13/19 02/13/19 10:50 10:50 WBC 4.8 RBC 3.08 L Hgb 10.0 L Hct 31.1 L MCV 101 H MCH 32.4 MCHC 32.0 RDW 18.5 H Plt Count 232 Seg Neutrophils % 56.1 Lymphocytes % 23.6 Monocytes % 13.1 H Eosinophils % 5.9 Basophils % 1.3 Absolute Neutrophils 2.7 Absolute Lymphocytes 1.1 Absolute Monocytes 0.6 Absolute Eosinophils 0.3 Absolute Basophils 0.1 Sodium 133.4 L Potassium 6.4 H* Chloride 96 L Carbon Dioxide 25 Anion Gap 12 BUN 52 H Creatinine 6.98 H Est GFR ( Amer) 7 L Est GFR (Non-Af Amer) 6 L Glucose 97 Calcium 8.3 L Total Bilirubin 0.4 AST 19 ALT 12 Alkaline Phosphatase 62 Total Protein 6.4 Albumin 3.8 Amylase 47 Lipase 17.4 L Impressions: Abdomen CT 02/13/19 10:33 IMPRESSION: Inadvertent removal of the patient's cholecystostomy tube earlier today. No right upper quadrant hematoma. Thick-walled gallbladder. Findings discussed with the emergency room attending physician Assessment & Plan - Diagnosis (1) Displaced cholecystostomy tube Is this a current diagnosis for this admission?: Yes Plan: CT scan demonstrates no significant fluid collection in the perihepatic and chaya-cholecystic region. She has gallbladder wall thickening that is likely chronic. I do not think she has common bile duct stones since her LFTs are normal. HIDA scan was performed which demonstrated prompt filling of the gallbladder thus ruling out cystic duct obstruction and cholecystitis. There was no evidence of biliary leak. Recommend discharging patient home with follow-up with her surgeon who has been managing her cholecystostomy tube. There is no immediate need for replacement of her cholecystostomy tube.
[2019-02-13] MEDS ORDERED: NORMAL SALINE 1000 ML 1,000 ML IV PRN (17:31)
[2019-02-13] MEDS ORDERED: HEPARIN SOD (PORCINE) 1,000 UNIT/ML 10 ML VIAL IV PRN (17:31)
--- NOTE | 2019-02-13 17:54 | PDOC CONSULTATION ---
Consultation Consult Date: 02/13/19 Provider Consulted: ELOISE CHILDRESS Consult reason:: I was asked to see the patient for urgent hemodialysis due to hyperkalemia in a patient with ESRD. History of Present Illness Admission Date/PCP: PEPPER MCLEOD MD History of Present Illness: KATHERINE RAWLS is a 83 year old female known to me with history of end-stage renal disease on hemodialysis 3 times a week, metastatic renal cell carcinoma previously on chemotherapy, COPD on home on home oxygen via nasal cannula, diabetes, hypertension, and history of choledocholithiasis with cholecystostomy tube placed sometime in June 2018 at [facility]. Patient went to [facility] [place] for her regular dialysis treatment however when she stood up her cholecystostomy tube just fell out on the floor. Patient was then sent to the emergency room and did not have any dialysis treatment. Patient admits that she had some right upper quadrant discomfort for over the weekend but this does not seem to be worse than her usual pain. She denies any nausea, vomiting, nor fever. She notes that the drainage from the cholecystostomy tube was almost none yesterday. In the emergency room she had a HIDA scan which showed findings without any cystic or common bile duct obstruction nor evidence of bile leak. A CT scan was also done which showed a cholecystostomy tube being the sludge without any right upper quadrant hematoma and a thick-walled gallbladder. Her right kidney is unremarkable and her left kidney showed a persistent left lower pole mass without any bilateral hydronephrosis no hydroureter. Initial work-up also includes a chemistry which revealed a potassium of 6.4. I was then called by Dr. Vinod Hawkins for need of hemodialysis due to hyperkalemia. I saw the patient during dialysis this afternoon. Her PermCath is running reversed. Her blood pressures in the low side with systolic blood pressure around 90s to 100s so ultrafiltration is set to at least 1 L or more if tolerated. Patient does not otherwise have any complaints during dialysis and so far she is tolerating procedure without any problems. Past Medical History Cardiac Medical History: Reports: Atrial Fibrillation, Hyperlipidemia, Hypertension-primary, Myocardial Infarction - 2012;PACEMAKER IMPLANTED, Other - History of pacemaker. Pulmonary Medical History: Reports: Asthma, Chronic Obstructive Pulmonary Disease (COPD) - CONTINOUOUS O2 2L NC, Pneumonia EENT Medical History: Reports: Other - Glaucoma Endocrine Medical History: Reports: Diabetes Mellitus Type 2, Hypothyroidism Renal/ Medical History: Reports: End Stage Renal Disease - On hemodialysis on Tuesday and Tuesday, Hyperphosphatemia, Secondary Hyperparathyroidism Malignancy Medical History: Reports: Cervical Cancer, Renal (Kidney) Cancer - Metastatic stage IV on chemotherapy, Other - History of thyroid cancer. GI Medical History: Reports: Gastroesophageal Reflux Disease, Hiatal Hernia, Other - Cholecystitis and choledocholithiasis in the past Musculoskeltal Medical History: Reports: Arthritis, Other - Osteoporosis Infectious Medical History: Reports: Other Infectious History Note: Shingles Hematology Medical History: Reports Anemia of Chronic Kidney Disease Past Surgical History Past Surgical History: Reports: Dialysis Access Surgery AVF, Hysterectomy, Pacemaker, Vascular Surgery - AV grafting, Other - Radiation therapy in February 2012, bilateral cataract surgery, Past Surgical Note: Cholecystostomy tube placement for choledocholithiasis placed in June 2018 at [facility]. Social History Information Source: [facility] Records Lives with: Jail - Lives at [place]. Smoking Status: Never Smoker Frequency of Alcohol Use: None Hx Recreational Drug Use: No Drugs: None Hx Prescription Drug Abuse: No Family History Family History: CVA - Mother, DM - Father, sister and brother, Malignancy - Brother Parental Family History Reviewed: Yes Children Family History Reviewed: Yes Sibling(s) Family History Reviewed.: Yes Medication/Allergy Home Medications: Albuterol Sulfate [Albuterol Sulfate 2.5mg/3 mL] 2.5 mg IH RTQ6HP PRN 08/23/16 Atorvastatin Calcium [Lipitor 10 mg Tablet] 10 mg PO QHS 08/23/16 Diltiazem HCl [Cardizem Cd 180 mg Capsule] 120 mg PO DAILY 08/23/16 Fluticasone/Salmeterol [Advair 250-50 Diskus 28 dose] 1 inh IH Q12 08/23/16 Furosemide [Lasix 40 mg Tablet] 40 mg PO ASDIR PRN 08/23/16 Latanoprost [Xalatan 0.005% Oph Soln 2.5 ml] 1 drop OU QHS 08/23/16 Montelukast Sodium [Singulair 10 mg Tablet] 10 mg PO QHS 08/23/16 Ropinirole HCl [Requip] 1 mg PO QPM 08/23/16 Levothyroxine Sodium [Synthroid 0.05 mg Tablet] 0.05 mg PO Q6AM #30 tablet 08/30/16 Prednisone [Deltasone 20 mg Tablet] 10 mg PO DAILY #39 tablet 08/30/16 Magnesium 2 tab PO DAILY 10/15/16 Olopatadine HCl [Pataday] 2.5 ml OP QAM 10/15/16 Tiotropium [place] [Spiriva Respimat] 4 gm IH BID 10/15/16 Diphenhydramine HCl [Benadryl 50 mg Capsule] 50 mg PO ASDIR PRN 02/18/17 Famotidine [Pepcid 20 mg Tablet] 20 mg PO ASDIR PRN 02/18/17 Nitroglycerin [Nitrostat] 0.4 mg SL PRN PRN 02/18/17 Ondansetron HCl [Zofran 4 mg Tablet] 1 - 2 tab PO Q4H PRN 02/18/17 Oxycodone HCl [Oxycontin] 10 mg PO Q4H 02/18/17 Apixaban [Eliquis 2.5 mg Tablet] 2.5 mg PO DAILY 02/21/17 Allergies/Adverse Reactions: morphine Allergy (Intermediate, Verified 10/15/16 12:11) Abnormal behavior Iodinated Contrast- Oral and IV Dye [IV Dye, Iodine Containing] Allergy (Verified 10/15/16 12:11) iodine [Iodine] Allergy (Verified 10/15/16 12:11) Review of Systems All systems: reviewed and no additional remarkable complaints except as stated Review of Systems: Constitutional: ABSENT: chills, fatigue, fever(s), headache(s), weight gain, weight loss Eyes: ABSENT: visual disturbances Ears: ABSENT: hearing changes Cardiovascular: ABSENT: chest pain, dyspnea on exertion, orthropnea, palpitations; admits edema Respiratory: ABSENT: cough, dyspnea, hemoptysis Gastrointestinal: ABSENT: Mild right upper quadrant abdominal pain described as just discomfort, constipation, diarrhea, hematemesis, hematochezia, nausea, vom iting Genitourinary: ABSENT: dysuria, hematuria Musculoskeletal: ABSENT: joint swelling Integumentary: ABSENT: rash, wounds Neurological: ABSENT: abnormal gait, abnormal speech, confusion, dizziness, focal weakness, numbness, syncope Psychiatric: ABSENT: anxiety, depression Endocrine: ABSENT: cold intolerance, heat intolerance, polydipsia, polyuria Hematologic/Lymphatic: ABSENT: easy bleeding, easy bruising, lymphadenopathy Physical Exam Vital Signs: Temp Pulse Resp BP Pulse Ox 98.6 F 13 103/40 L 98 02/13/19 09:26 02/13/19 12:00 02/13/19 11:01 02/13/19 12:00 Intake & Output 02/12/19 02/13/19 02/14/19 06:59 06:59 06:59 Weight 49.5 kg Vitals during dialysis: Blood pressure 106/46, heart rate of 69, oxygen saturation 100% with oxygen via nasal cannula, respiratory rate of 15, blood hallie w rate of 290 mL/min and dialysate flow rate of 800 normal per minute. Exam: General appearance: No acute distress, cooperative, well-developed, well- nourished Head exam: PRESENT: atraumatic, normocephalic Eye exam: PRESENT: Conjunctiva slightly pale, EOMI, PERRLA. ABSENT: conjunctival injection, scleral icterus Mouth exam: PRESENT: moist, neck supple, tongue midline Neck exam: PRESENT: full ROM. ABSENT: carotid bruit, JVD, lymphadenopathy, thyromegaly Respiratory exam: PRESENT: Diminished to auscultation bilaterally. ABSENT: rales, rhonchi, stridor, wheezes Cardiovascular exam: PRESENT: RRR, +S1, +S2. ABSENT: systolic murmur Pulses: PRESENT: normal radial pulses, normal dorsalis pedis pulses GI/Abdominal exam: PRESENT: normal bowel sounds, soft. There is mild right upper quadrant discomfort ABSENT: guarding, mass, tenderness Rectal exam: Deferred Extremities exam: [PRESENT: full ROM. Grade 1 bilateral lower extremity edema which is actually better than her baseline ABSENT: calf tenderness Musculoskeletal: PRESENT: full ROM. ABSENT: deformity Neurological exam: PRESENT: alert, Awake, Oriented to person, Oriented to place, Oriented to time, reflexes normal, CN II-XII grossly intact. ABSENT: motor sensory deficit Psychiatric exam: PRESENT: appropriate affect, normal mood. ABSENT: homicidal ideation, suicidal ideation Skin exam: PRESENT: intact, dry, warm. ABSENT: rash Results Laboratory Results: 02/13/19 10:50 02/13/19 10:50 02/13/19 02/13/19 10:50 10:50 WBC 4.8 RBC 3.08 L Hgb 10.0 L Hct 31.1 L MCV 101 H MCH 32.4 MCHC 32.0 RDW 18.5 H Plt Count 232 Seg Neutrophils % 56.1 Lymphocytes % 23.6 Monocytes % 13.1 H Eosinophils % 5.9 Basophils % 1.3 Absolute Neutrophils 2.7 Absolute Lymphocytes 1.1 Absolute Monocytes 0.6 Absolute Eosinophils 0.3 Absolute Basophils 0.1 Sodium 133.4 L Potassium 6.4 H* Chloride 96 L Carbon Dioxide 25 Anion Gap 12 BUN 52 H Creatinine 6.98 H Est GFR ( Amer) 7 L Est GFR (Non-Af Amer) 6 L Glucose 97 Calcium 8.3 L Total Bilirubin 0.4 AST 19 ALT 12 Alkaline Phosphatase 62 Total Protein 6.4 Albumin 3.8 Amylase 47 Lipase 17.4 L Impressions: Hepatobiliary Scan Nuclear Medicine 02/13/19 00:00 IMPRESSION: NORMAL STUDY WITHOUT CYSTIC OR COMMON DUCT OBSTRUCTION. NO EVIDENCE OF BILE LEAK Abdomen CT 02/13/19 10:33 IMPRESSION: Inadvertent removal of the patient's cholecystostomy tube earlier today. No right upper quadrant hematoma. Thick-walled gallbladder. Findings discussed with the emergency room attending physician Assessment & Plan - Diagnosis (1) Hyperkalemia Is this a current diagnosis for this admission?: Yes Plan: Today the patient is dialysis today. Her catheter is not optimally working reasons why she has hyperkalemia. (2) ESRD on hemodialysis Is this a current diagnosis for this admission?: Yes Plan: I have arranged urgent dialysis in the emergency room. We will do dialysis today for 3 hours, using the patient's right PermCath, with 1K for 1 hour followed by 2 potassium bath, blood flow rate of 300 mL per minute, dialysate flow rate of 6-800 mL per minute, ultrafiltration 1 to 2 L as tolerated, no heparin and no Procrit needed. Treatment plan discussed with her dialysis nurse. Patient will be monitored throughout dialysis treatment. (3) Displaced cholecystostomy tube Is this a current diagnosis for this admission?: Yes Plan: HIDA scan and CT scan did not show any indication for reinsertion of the cholecystostomy tube at this time. (4) Anemia of chronic disease Is this a current diagnosis for this admission?: Yes - Notes Notes: Thank you very much for this consultation. From nephrology standpoint patient can be discharged home after dialysis in the emergency room today. Patient will continue her regular dialysis schedule as an outpatient at [facility]. - Time Time Spent: 50 to 70 Minutes
[2019-02-13 19:10] VITALS: BP 119/44
== END 2019-02-13 19:50 | disposition home or self-care (01) ==
LOC: ER 09:02
DX: T85.698A Other mechanical complication of other specified internal prosthetic devices, implants and grafts, initial encounter (principal); I13.2 Hypertensive heart and chronic kidney disease with heart failure and with stage 5 chronic kidney disease, or end stage renal disease; I50.9 Heart failure, unspecified; E11.22 Type 2 diabetes mellitus with diabetic chronic kidney disease; N18.6 End stage renal disease; R10.9 Unspecified abdominal pain; R10.11 Right upper quadrant pain; R11.0 Nausea; Z99.2 Dependence on renal dialysis; Z85.850 Personal history of malignant neoplasm of thyroid; Z85.528 Personal history of other malignant neoplasm of kidney; I25.2 Old myocardial infarction; J45.909 Unspecified asthma, uncomplicated; Z99.81 Dependence on supplemental oxygen
CPT/HCPCS: 99285; 36415; 82962; 82150; 83690; 85025; 85610; 80053; 78226; 74150; G0257; A9537; J1644; Q9969

== ENCOUNTER → 2019-04-04 | Outpatient (CLI) | payer MEDICARE, MEDICAID ==
--- NOTE | 2019-04-04 13:06 | WOMENS IMAGING REPORT ---
EXAM DESCRIPTION: BILAT DIAGNOSTIC MAMMO W/CAD; U/S BREAST UNILAT LIMITED COMPLETED DATE/TIME: 04/04/2019 11:11 am; 04/04/2019 11:34 am REASON FOR STUDY: UNSPECIFIED LUMP IN THE LEFT BREAST, LOWER INNER QUADRANT; LT BREAST N63.4 N63.0 UNSPECIFIED LUMP IN UNSPECIFIED BREAST N63.24 UNSPECIFIED LUMP IN THE LEFT BREAST, LOWER INNER QUAD COMPARISON: None. EXAM PARAMETERS: Standard craniocaudal and mediolateral oblique views of each breast recorded using digital acquisition. Additional left XCC view. Ultrasound left breast. Read with the assistance of CAD: .REPLACED BY [facility] - [employer] Travel Agent Version 9.2 LIMITATIONS: Limited clinical information. Unclear if the patient has completed therapy for mastiti s or is currently in treatment. FINDINGS: RIGHT BREAST MASSES: No suspicious masses. CALCIFICATIONS: Diffuse calcifications, vascular and secretory without suspicious forms suggested. ARCHITECTURAL DISTORTION: None. DEVELOPING DENSITY: None. ASYMMETRY: None noted. OTHER: No other significant findings. LEFT BREAST MASSES: No suspicious masses. CALCIFICATIONS: Diffuse calcifications, vascular and secretory without suspicious forms suggested. ARCHITECTURAL DISTORTION: None. DEVELOPING DENSITY: None. ASYMMETRY: None noted. OTHER: Diffuse increased density throughout the breast parenchyma, non localizing. Diffuse skin thic kening. Left breast ultrasound: Imaging is performed in the the breast from approximately 6 through 9 o'clock to assess clinically detected lower inner quadrant mass. There is regional skin thickening and subcutaneous and deeper breast tissue edema. No focal drainabl e collections. No discrete solid mass or distortion suggested. IMPRESSION: 1. Abnormal left breast. Diffuse skin thickening with edema. No focal lesions are detected either m ammographically or by ultrasound. Reportedly, the patient has been (or is currently being) treated f or infection. The findings are likely related to mastitis although the differential includes inflamm atory breast carcinoma. This needs further clinical followup, particularly if the findings do not re solve in a timely fashion with appropriate treatment. Biopsy may be warranted depending on clinical scenario. Follow-up of the focal area of palpable breast abnormality is also warranted clinically. No discrete lesions are identified here. See above. BREAST DENSITY: c. The breasts are heterogeneously dense, which may obscure small masses. BIRAD: ASSESSMENT: 4 Suspicious. Biopsy should be performed in the absence of clinical contra-indic ation. RECOMMENDATION: RECOMMENDED FOLLOW UP: See above. SPECIFIC INTERVENTION/IMAGING/CONSULTATION RECOMMENDED:See above. COMMUNICATION:Patient was instructed by the technologist to followup with referring clinician for res ults and further management. COMMENT: The patient has been notified of the results by letter per SA requirements. Additional no tification policies are in place for contacting patient with suspicious or incomplete findings. Quality ID #[id number]: The [employer] recommends an annual screening mammogram for women aged 40 years or over. This facility utilizes a reminder system to ensure that all patients receive reminder letters, and/or direct phone calls for appointments. This includes reminders for routine scr eening mammograms, diagnostic mammograms, or other Breast Imaging Interventions when appropriate. Th is patient will be placed in the appropriate reminder system. TECHNICAL DOCUMENTATION: FINDING NUMBER: (1) ASSESSMENT: (1) JOB ID: [id number] [employer]- All Rights Reserved Reading location - IP/workstation name: [email or web address]
== END ==
LOC: WI 10:51
PROVIDERS: ATTEND Family Medicine
DX: N63.24 Unspecified lump in the left breast, lower inner quadrant (principal)
CPT/HCPCS: 76642; 77066

== ENCOUNTER 2019-08-24 19:32 | Emergency (ER) | payer MEDICARE, MEDICAID ==
[2019-08-24 20:43] LABS: ABSOLUTE BASOPHILS # (AUTO) 0.1 10^3/uL (0.0-0.2); ABSOLUTE LYMPHOCYTES (AUTO) 0.7 10^3/uL (0.5-4.7); ABSOLUTE MONOCYTES (AUTO) 0.8 10^3/uL (0.1-1.4); ABSOLUTE NEUT (AUTO) 9.1 10^3/uL (1.7-8.2); BASOPHILS % (AUTO) 0.7 % (0-2); EOSINOPHILS % (AUTO) 0.2 % (0-6); HEMATOCRIT 45.6 % (36.0-47.0); HEMOGLOBIN 14.5 g/dL (12.0-15.5); LYMPHOCYTES % (AUTO) 6.9 % (13-45); MEAN CORPUSCULAR HEMOGLOBIN 31.4 pg (27.0-33.4); MEAN CORPUSCULAR HGB CONC 31.8 g/dL (32.0-36.0); MEAN CORPUSCULAR VOLUME 99 fl (80-97); MONOCYTES % (AUTO) 7.6 % (3-13); PLATELET COUNT 316 10^3/uL (150-450); RED BLOOD COUNT 4.62 10^6/uL (3.72-5.28); RED CELL DISTRIBUTION WIDTH 14.7 % (11.5-14.0); SEGMENTED NEUTROPHILS % (AUTO) 84.6 % (42-78); TOTAL CELLS COUNTED % (AUTO) 100 %; WHITE BLOOD COUNT 10.7 10^3/uL (4.0-10.5)
[2019-08-24 20:56] LABS: ALBUMIN 3.1 g/dL (3.5-5.0); ALKALINE PHOSPHATASE 81 U/L (38-126); ANION GAP 11 (5-19); ASPARTATE AMINO TRANSFERASE 17 U/L (14-36); BILIRUBIN,DIRECT 0.4 mg/dL (0.0-0.4); BILIRUBIN,TOTAL 0.4 mg/dL (0.2-1.3); BLOOD UREA NITROGEN 42 mg/dL (7-20); CALCIUM 9.8 mg/dL (8.4-10.2); CARBON DIOXIDE 27 mmol/L (22-30); CHLORIDE 97 mmol/L (98-107); GLUCOSE 103 mg/dL (75-110); POTASSIUM 5.4 mmol/L (3.6-5.0); TOTAL PROTEIN 6.3 g/dL (6.3-8.2)
--- NOTE | 2019-08-24 21:41 | ER Document Report ---
ED GI/ - General Chief Complaint: Abdominal Problem Stated Complaint: ABDOMINAL PAIN Time Seen by Provider: 08/24/19 21:06 Primary Care Provider: PEPPER MCLEOD MD [Primary Care Provider] - Follow up as needed Mode of Arrival: Stretcher Information source: Patient Notes: 84-year-old female presented to ED for complaint of abdominal pain for the last 3 days. She is in a long term facility doctor wanted her seen and a CT done for her abnormal abdominal x-ray. She did have her gallbladder removed about a year ago and had a drainage tube in and that was replaced about a week ago and she is not felt right since then. She is a dialysis patient and goes to dialysis on Tuesday and Tuesday. She states she has been vomiting since they put in the new tube. She is alert oriented respirations regular nonlabored speaking in full sentences. TRAVEL OUTSIDE OF THE [place] IN LAST 30 DAYS: No - HPI Patient complains to provider of: Abdominal pain, Vomiting Onset: Other - 3 days Timing/Duration: Intermittent Quality of pain: Sharp Severity at maximum: Moderate Severity in ED: Moderate Pain Level: 3 Location: Other - Abdomen Vaginal bleeding (Compared to normal period): None Menstrual period history: Post-menopausal Associated symptoms: Nausea, Vomiting Exacerbated by: Movement Relieved by: Denies Similar symptoms previously: Yes Recently seen / treated by doctor: No - Related Data Allergies/Adverse Reactions: morphine Allergy (Intermediate, Verified 10/15/16 12:11) Abnormal behavior Iodinated Contrast Media [IV Dye, Iodine Containing] Allergy (Verified 10/15/16 12:11) iodine [Iodine] Allergy (Verified 10/15/16 12:11) Past Medical History - General Information source: Patient, Parent - Social History Smoking Status: Never Smoker Frequency of alcohol use: None Drug Abuse: None Lives with: Assisted Family History: Reviewed & Not Pertinent, DM, Hypertension Patient has suicidal ideation: No Patient has homicidal ideation: No - Past Medical History Cardiac Medical History: Reports: Hx Atrial Fibrillation, Hx Congestive Heart Failure, Hx Heart Attack - 2011;PACEMAKER IMPLANTED, Hx Hypercholesterolemia, Hx Hypertension Pulmonary Medical History: Reports: Hx Asthma, Hx Bronchitis, Hx COPD - CONTINOUOUS O2 2L NC, Hx Pneumonia EENT Medical History: Reports: None Neurological Medical History: Reports: None Endocrine Medical History: Reports: Hx Diabetes Mellitus Type 2, Hx Hypothyroidism Renal/ Medical History: Reports: Hx End Stage Renal Disease - On hemodialysis on Tuesday and Tuesday, Hx Renal Insufficiency Malignancy Medical History: Reports: Hx Cervical Cancer, Hx Renal (Kidney) Cancer - Metastatic stage IV on chemotherapy GI Medical History: Reports: Hx Gastroesophageal Reflux Disease, Hx Hiatal Hernia Musculoskeletal Medical History: Reports Hx Arthritis Skin Medical History: Reports None Psychiatric Medical History: Reports: None Traumatic Medical History: Reports: None Infectious Medical History: Reports: None Past Surgical History: Reports: Hx Cardiac Surgery - pacemaker, Hx Hysterectomy, Hx Pacemaker, Hx Vascular Surgery - AV grafting, Other - Radiation therapy in February 2012, bilateral cataract surgery - Immunizations Hx Diphtheria, Pertussis, Tetanus Vaccination: Yes Hx Pneumococcal Vaccination: 08/08/11 Review of Systems - Review of Systems Constitutional: No symptoms reported EENT: No symptoms reported Cardiovascular: No symptoms reported Respiratory: No symptoms reported Gastrointestinal: Abdominal pain, Nausea, Vomiting, Other Genitourinary: No symptoms reported Female Genitourinary: No symptoms reported Musculoskeletal: No symptoms reported Skin: No symptoms reported Hematologic/Lymphatic: No symptoms reported Neurological/Psychological: No symptoms reported Physical Exam - Vital signs Vitals: Pulse Ox 98 08/24/19 19:33 Interpretation: Normal - General General appearance: Appears well, Alert - HEENT Head: Normocephalic, Atraumatic Eyes: Normal Pupils: PERRL - Respiratory Respiratory status: No respiratory distress Chest status: Nontender Breath sounds: Normal Chest palpation: Normal - Cardiovascular Rhythm: Regular Heart sounds: Normal auscultation Murmur: No - Abdominal Inspection: Other Distension: No distension Bowel sounds: Normal Tenderness: Tender - Biliary drain tube Organomegaly: No organomegaly - Back Back: Normal, Nontender - Extremities General upper extremity: Normal inspection, Nontender, Normal color, Normal ROM, Normal temperature General lower extremity: Normal inspection, Nontender, Normal color, Normal ROM, Normal temperature, Normal weight bearing. No: Emma's sign - Neurological Neuro grossly intact: Yes Cognition: Normal Orientation: AAOx4 [place] Coma Scale Eye Opening: Spontaneous [place] Coma Scale Verbal: Oriented [place] Coma Scale Motor: Obeys Commands [place] Coma Scale Total: 15 Speech: Normal Motor strength normal: LUE, RUE, LLE, RLE Sensory: Normal - Psychological Associated symptoms: Normal affect, Normal mood - Skin Skin Temperature: Warm Skin Moisture: Dry Skin Color: Normal Course - Re-evaluation Re-evalutation: 08/25/19 08:40 When patient was discharged back to [place], I did not send her with a prescription for Keflex right her diagnosis of UTI. I have attempted to call [facility] about 30 times and multiple nurses have also attempted to call with no response until at this time. I did speak to the nursing auto rental supervisor over there at this time and sent her the prescription for the Keflex. I also informed her that the patient's potassium was 5.[address] out she had stated she was not going to dialysis it is extremely important that she goes to dialysis today. The nurse stated that she would see that she went to the dialysis. The prescription was faxed attention Zuly [id number] - Vital Signs Vital signs: Temp Pulse Resp BP Pulse Ox 98 F 74 23 H 157/48 H 96 08/24/19 19:46 08/24/19 19:46 08/25/19 04:24 08/25/19 04:24 08/25/19 04:23 - Laboratory Result Diagrams: 08/24/19 20:25 08/24/19 20:25 Laboratory results interpreted by me: 08/24/19 08/24/19 08/24/19 20:25 20:25 22:09 WBC 10.7 H MCV 99 H MCHC 31.8 L RDW 14.7 H Lymph % (Auto) 6.9 L Absolute Neuts (auto) 9.1 H Seg Neutrophils % 84.6 H Sodium 134.7 L Potassium 5.4 H Chloride 97 L BUN 42 H Creatinine 6.16 H Est GFR ( Amer) 8 L Est GFR (MDRD) Non-Af 7 L Albumin 3.1 L Urine Protein 30 H Urine Blood LARGE H Ur Leukocyte Esterase LARGE H - Diagnostic Test Radiology reviewed: Image reviewed, Reports reviewed Discharge - Discharge Clinical Impression: Abdominal pain Qualifiers: Abdominal location: generalized Qualified Code(s): R10.84 - Generalized abdominal pain Constipation Qualifiers: Constipation type: unspecified constipation type Qualified Code(s): K59.00 - Constipation, unspecified UTI (urinary tract infection) Qualifiers: Urinary tract infection type: site unspecified Hematuria presence: with hematuria Qualified Code(s): N39.0 - Urinary tract infection, site not specified; R31.9 - Hematuria, unspecified Condition: Stable Disposition: SNF-Other Additional Instructions: ABDOMINAL PAIN: There are many causes of abdominal pain. Pain can mean a serious problem requiring surgery (such as appendicitis). It can also be an innocent problem lorna t goes away on its own (such as a viral infection). Often, time must pass to determine the cause of pain. The physician does not feel that hospitalization is necessary, at present. Things may change within the next 24 hours. Call the doctor or come back for re- examination if any problems occur, such as: (1) Pain that becomes more severe, steady, or becomes concentrated in one specific area. Also, pain that is more severe with movement or coughing. (2) Vomiting that persists or becomes more frequent. (3) Blood in the vomitus, urine, or bowel movements. Blood in the stool may have a tarry or black appearance. (4) Shaking chills or fever greater than 100 degrees F. (5) The abdomen becomes more distended or swollen. (6) Bowel movements cease. (7) Failure to improve as expected. Constipation Constipation is a common problem. It is especially likely as you get older. Constipation is a common cause of abdominal pain, but sometimes causes no symptoms at all. Causes of constipation include certain medications, dehydration, diets, inactivity, and low-fiber intake. Rarely, it can be a symptom of underlying disease. The physician has evaluated you for this. Avoid constipation by eating a diet high in fiber, fruits, and vegetables. Drink plenty of liquids. Get regular exercise. If possible, avoid constipating medicines like narcotic pain medication. Some vitamin tablets can cause constipation. Stool softeners may be needed for difficult cases. An excellent stool softener is Konsyl which is available at [employer], [employer] drug store. Just add a teaspoon to a glass of pineapple or orange juice daily or twice a day if needed. Laxatives are useful for occasional constipation. You should use them only when necessary. Too-frequent use can make your bowels dependent on them. Some over the counter laxatives available without prescription are: You have received to milk and mineral oil enemas with some results from your constipation. You will be given a dose of lactulose before being discharged. You need to follow-up with your dialysis today and then speak with your primary care doctor about continued lactulose for your constipation caused by your narcotics for your chronic pain. Continue your stool softeners and consult with your renal doctor concerning use of MiraLAX on a regular basis to go with your stool softeners. FOLLOW-UP CARE: If you have been referred to a physician for follow-up care, call the physicians office for an appointment as you were instructed or within the next two days. If you experience worsening or a significant change in your symptoms, notify the physician immediately or return to the Emergency Department at any time for re-evaluation. Prescriptions: Cephalexin Monohydrate [Keflex 500 mg Capsule] 500 mg PO DAILY 10 Days capsule Referrals: PEPPER MCLEOD MD [Primary Care Provider] - Follow up as needed
[2019-08-24] MEDS ORDERED: OXYCODONE HCL IR 5 MG TABLET PO ONE (22:24)
[2019-08-24] MEDS ORDERED: ONDANSETRON 4 MG TAB.RAPDIS PO ONE (22:24)
[2019-08-24 22:25] LABS: APPEARANCE,URINE CLOUDY; BILIRUBIN,URINE NEGATIVE (NEGATIVE); GLUCOSE, URINE NEGATIVE (NEGATIVE); KETONES,URINE NEGATIVE (NEGATIVE); LEUKOCYTE ESTERASE,URINE LARGE (NEGATIVE); NITRITE,URINE NEGATIVE (NEGATIVE); PROTEIN,URINE 30 mg/dL (NEGATIVE); URINE SPECIFIC GRAVITY 1.017; UROBILINOGEN,URINE NEGATIVE mg/dL (<2.0)
[2019-08-24 22:27] LABS: COLOR,URINE YELLOW
[2019-08-24] MEDS ORDERED: HYDROMORPHONE HCL INJ/PF 2 MG/ML AMPULE IV ONE (22:40)
[2019-08-24] MEDS ORDERED: ONDANSETRON HCL INJ/PF 4 MG/2 ML SDV IV ONE (22:40)
[2019-08-24] MEDS ORDERED: CEFTRIAXONE 1 GM/D5W RTU 1 GM/50 ML RTUPB IV ONE (22:40)
--- NOTE | 2019-08-24 22:48 | RADIOLOGY REPORT (SQ) ---
CT abdomen and pelvis without contrast on 08/24/2019 at 9:49 PM CLINICAL INDICATION: Generalized abdominal pain TECHNIQUE: Multiple axial images are obtained throughout the abdomen and pelvis without the administration of contrast. This exam was performed according to our departmental dose-optimization program, which includes automated exposure control, adjustment of the mA and/or kV according to patient size and/or use of iterative reconstruction technique. Total DLP is 442.27 mGy*cm. COMPARISON: 02/13/2019 FINDINGS: Abdomen: There is anasarca in the subcutaneous tissues greatest in the left chest and abdominal wall. There is small left pleural effusion. There is mild left greater than right basilar atelectasis. Increased stool is noted throughout the colon suggesting constipation. Coronary artery calcifications and other vascular calcifications are noted. There is again noted a large mass with calcifications extending exophytically off the lower pole of the left kidney. Please correlate with any prior workup of this mass. If the patient has not had prior renal mass protocol CT with and without contrast then this would be useful to better characterize this mass. This appears to measure at least 5.3 cm in greatest diameter. The patient has a cholecystostomy tube in the right upper quadrant with nonvisualization of the gallbladder. The unenhanced solid abdominal organs are otherwise unremarkable. There is no abdominal adenopathy. There is no free air in the abdomen. There is trace free fluid in the abdomen. The abdominal portion of the GI tract is otherwise unremarkable. Pelvis: There are some dilated fluid-filled loops of small bowel in the pelvis without definite transition point or decompressed distal small bowel to confirm obstruction. No free fluid is noted in the pelvis. The patient is status post hysterectomy. There is no pelvic adenopathy. Degenerative changes are noted in the spine. IMPRESSION: 1. Increased stool throughout the colon consistent with constipation. 2. Dilated fluid-filled loops of small bowel in the pelvis without definite transition to confirm bowel obstruction, this may be related to the colonic constipation. 3. Stable left renal mass that is indeterminate, please correlate with any prior workup. If this has not been evaluated with contrast in the past then consider follow-up renal mass protocol CT with and without contrast. 4. Anasarca and left pleural effusion with small amount of ascites.
[2019-08-24] MEDS ORDERED: NA PHOS,M-B/NA PHOS,DI-BA (ADULT) 133 ML ENEMA PR ONE (23:12)
[2019-08-25] MEDS ORDERED: MINERAL OIL 30 ML UDCUP PR ONE ×2 (01:29)
[2019-08-25] MEDS ORDERED: ALBUTEROL SULFATE 0.083% NEB 2.5 MG/3 ML AMPUL NEB ONE ×2 (02:55→03:41)
[2019-08-25] MEDS ORDERED: LACTULOSE SYRUP 20 GM/30 ML UDCUP PO ONE (03:52)
[2019-08-25 04:35] VITALS: BP 157/48
== END 2019-08-25 04:36 ==
LOC: ER 19:32
DX: R10.84 Generalized abdominal pain (principal); K59.00 Constipation, unspecified; N39.0 Urinary tract infection, site not specified; R31.9 Hematuria, unspecified; I50.9 Heart failure, unspecified; I25.2 Old myocardial infarction; I10 Essential (primary) hypertension; J44.9 Chronic obstructive pulmonary disease, unspecified; E11.9 Type 2 diabetes mellitus without complications
CPT/HCPCS: 94640; 99285; 96375; 96365; 36415; 82962; 83690; 85025; 80053; 81001; 74176; A9270 ×4; J1170; J2405; J0696; J3490